=== PATIENT | male | born 1935 | race Caucasian/White ===

== ENCOUNTER 2016-10-18 15:39 | Emergency (ER) | payer OTHER ==
[2016-10-18] MEDS ORDERED: PERCOCET-10 PO ONE ×2 (16:21→19:40)
[2016-10-18] MEDS ORDERED: XYLOCAINE 1% INJ ONE (16:22)
[2016-10-18] MEDS ORDERED: BOOSTRIX VACCINE IM ONE (16:23)
[2016-10-18] MEDS ORDERED: XYLOCAINE MPF 1% ONE (16:28)
--- NOTE | 2016-10-18 16:32 | PROVIDER DOCUMENTATION ---
HPI-General Adult - General Chief Complaint: Laceration[s] Stated Complaint: HANDY INJURY Time Seen by Provider: 10/18/16 15:59 Source: patient Allergies/Adverse Reactions: Patient Allergies Allergy/AdvReac Type Severity Reaction Status Date / Time No Known Allergies Allergy Verified 02/26/14 14:52 Home Medications: Atorvastatin Calcium [Lipitor] 10 mg PO DAILY 02/26/14 Polyethylene Glycol 3350 [Miralax] 17 gm PO DAILY 02/26/14 - History of Present Illness -Gen Adult Nature of Presenting Problems: Pt. is 80 yom that presents with c/o injuries to 1st, 2nd and 3rd fingers on the left hand. Pt. reports he was using a table saw and got his fingers caught in the saw. Pt. reports his tetanus is not up to date. Pt. denies any other injury. Location of Pain/Injury: reports: hand(s) (left hand). denies: head, face, mouth, neck, chest, upper extremity, abdomen, back, pelvis, genitalia, lower extremity, feet, upper body, lower body, generalized Pain Radiation: reports: no radiation Quality of Pain: reports: aching. denies: burning, cramping, dull, fullness, indigestion, pressure, sharp, stabbing, tearing, throbbing, tightness Severity: reports: moderate. denies: mild, severe Onset/Duration: reports: abrupt, just prior to arrival Timing: reports: still present, constant. denies: improving, gone now, resolved prior to arrival, intermittent, changing over time, getting worse Context/Activities at Onset: reports: moderate activity, recent trauma history. denies: recent emotional stress, recent physical stress, possible bad food, cold exposure, out of country travel Modifying Factors: improves with: nothing Associated Symptoms: reports: other (Injury to fingers on left hand). denies: anxiety, arm pain, back/neck pain, chest pain, constipation, cough, diaphoresis , diarrhea, dizziness, EENT symptoms, fatigue, fever/chills, genitourinary problems, headaches, heartburn, joint pain, loss of appetite, malaise, muscle aches, sinus congestion/drainage, nausea, rash, seizure, shortness of breath, sensory/motor loss, pain with inspiration, swelling/mass in abdomen, syncope, vomiting, weakness, trouble walking Similar Symptoms Previously?: No Recently seen or treated by another doctor?: No Review of Systems - Adult - REVIEW OF SYSTEMS - ADULT Constitutional: reports: see HPI. denies: chills, fever, fatique Eyes: reports: see HPI. denies: discharge, blurred vision, double vision Ears, Nose, Mouth & Throat: reports: see HPI. denies: ear discharge, ear pain, nose pain, loose teeth, mouth/dental pain, throat pain, throat swelling Cardiovascular: reports: see HPI. denies: chest pain, irregular heart rate, orthopnea, syncope Respiratory: reports: see HPI. denies: chronic cough, cough, dyspnea on exertion, pleurisy, shortness of breath, wheezing Gastrointestinal: reports: see HPI. denies: abdominal pain, hematemesis, difficulty swallowing, nausea, vomiting Genitourinary: reports: see HPI. denies: dysuria, discharge, flank pain, hematuria, hesitency, urgency Musculoskeletal: reports: see HPI, bone pain (fingers on left hand). denies: back pain, joint pain, joint swelling, neck pain Integumentary: reports: see HPI. denies: hives, itching, rash, skin thickening Neurological: reports: see HPI. denies: ataxia, headache/migraines, numbness, seizure, tremors Psychiatric: reports: see HPI. denies: anxiety, depression, emotional problems , insomnia, panic attacks, suicidal thoughts Past History - Adult - PAST MEDICAL HISTORY-ADULT Review of Records: reports: Old Records Reviewed, Nursing Assessment Review, Medications Reviewed, Social history reviewed & non-contributory. Major Childhood Illnesses: reports: denies history Cardiovascular: reports: denies history Respiratory: reports: denies history Gastrointestinal: reports: denies history Obstetrical/Gynecological: reports: denies history Genitourinary: reports: denies history Musculoskeletal: reports: denies history Neurological: reports: denies history Endocrine/Immune: reports: denies history Other Conditions: reports: denies history - IMMUNIZATION STATUS Childhood Immunizations: See Nurse Assessment Flu Vaccine: See Nurse Assessment - FAMILY HISTORY Family History: reviewed, not pertinent Physical Exam-General - PHYSICAL EXAM-ADULT Initial Vital Signs Reviewed: Yes - CONSTITUTIONAL General Appearance: alert, moderate distress. negative: anxious, lethargic, slow to respond, obtunded, combative - EYES Eyes: PERRL/EOMI, pink conjunctivae. negative: conjuctival exudate, photophobia , subconjunctival hemorrhage - HEAD, EARS, NOSE, MOUTH & THROAT HENMT: normocephalic/atraumatic, moist mucous membranes. negative: angioedema, frontal tenderness, maxillary tenderness - NECK Neck: non-tender, full range of motion, supple, normal inspection. negative: lymphadenopathy, trachial deviation, thyromegaly - RESPIRATORY Respiratory: lungs clear, normal breath sounds. negative: crackles, rales, rhonchi, stridor, wheezing - CARDIOVASCULAR Cardiovascular: normal peripheral pulses, regular rate, rhythm, no edema, no JVD , no murmur. negative: extra beats, friction rub, irregularly irregular - CHEST (BREASTS) Chest/Breast: deferred - GASTROINTESTINAL (ABDOMEN) Abdominal Exam: normal bowel sounds, non tender, soft. negative: distended, guarding, rigid, rebound, tenderness, hernia, mass - GENITOURINARY Male Genitalia: deferred Rectal Exam: deferred Hemoccult Exam: deferred - LYMPHATIC Lymphatic: no adenopathy. negative: axilla node tender, cervical node tenderness - MUSCULOSKELETAL Back Exam: normal inspection, no CVA tenderness, no vertebral tenderness. negative: ecchymosis, swelling, vertebral tenderness Extremity: normal range of motion, non-tender, normal gait, normal inspection. negative: deformity, erythema, inflammation, swelling, tenderness Peripheral Pulses: radial (R): 2+, radial (L): 2+ - SKIN Integumentary: normal color, normal turgor, warm/dry. negative: cyanosis, diaphoresis, ecchymosis, erythema, jaundice, mottled, pallor, petechiae, purpura , rash, swelling, tenderness - NEUROLOGIC Neurologic: grossly normal, no motor/sensory deficits. negative: abnormal gait , facial droop, focal weakness, motor weakness, sensory deficit - PSYCHIATRIC Psych/Mental Status: normal mood/affect, normal thought content, normal thought process, oriented x 3. negative: anxious, paranoid, tearful Progress - PLAN OF CARE/RESULTS Progress/Plan/Lab Results: Discussed results and plan of care with patient. Patient agrees with plan and verbalizes understanding. Vital Signs Temp Pulse Resp BP Pulse Ox 10/18/16 15:46 97.8 F 80 18 162/93 100 No Known Allergies Allergy (Verified 02/26/14 14:52) Atorvastatin Calcium [Lipitor] 10 mg PO DAILY 02/26/14 Polyethylene Glycol 3350 [Miralax] 17 gm PO DAILY 02/26/14 Hydrocodone/Acetaminophen [Magnolia 10-325 Tablet] 1 each PO Q4H PRN PRN #15 tablet 05/04/16 Orders Category Date Time Status Frog Splint DIRECTED Care 10/18/16 19:40 Active Wound Care DIRECTED Care 10/18/16 19:40 Active lac [Laceration Set up] DIRECTED Care 10/18/16 16:21 Active HAND COMPLETE LEFT [RAD] Stat Exams 10/18/16 16:20 Completed CephALEXIN [Keflex] Med 10/18/16 19:41 Discontinued 500 mg PO NOW ONE Diph,Pertuss(Acell),Tet Vac/Pf [Boostrix Vaccine] Med 10/18/16 16:23 Discontinued 0.5 ml IM .ONCE ONE Lidocaine 1% Pf [Xylocaine-Mpf 1%] 10 ml Med 10/18/16 16:28 Discontinued .ROUTE As Directed Lidocaine 1% [Xylocaine 1%] Med 10/18/16 16:22 Discontinued 20 ml INJ NOW ONE Oxycodone/APAP 10 mg/325 mg [Percocet-10] Med 10/18/16 16:21 Discontinued 1 each PO NOW ONE Oxycodone/APAP 10 mg/325 mg [Percocet-10] Med 10/18/16 19:40 Discontinued 1 each PO NOW ONE Dr. Curtis at bedside for evaluation. - XRAY 1 XRAY: Left XRAY Study: Hand XRAY Interpretation: Distal phalanx cut off and floating in tissue on middle finger (Jose) Procedures - LACERATION/WOUND REPAIR/FB Left Finger Wound Location: Other: Left index finger Wound Length: 1.5 cm Wound's Depth, Shape: superficial, linear Wound Explored/Foreign Body: clean, no foreign body found Irrigated with Saline?: Yes Prepped with: Betadine Anesthetic: 1%, Lidocaine/Xylocaine Volume of Anesthetic (ml's): 4 Wound Repaired with: Sutures Suture Size/Type: 4.0, Nylon Number of Sutures: 5 Layer Closure?: No Sterile Dressing Applied?: Yes Splint Applied?: No Sling Applied?: No Post Procedure Neurovascular Exam: Intact Finger Wound Location: Other: Left middle finger Wound Length: 2 cm Wound's Depth, Shape: superficial, nail-avulsed, contused tissue Wound Explored/Foreign Body: contaminated moderately, no foreign body found Irrigated with Saline?: Yes Prepped with: Betadine Anesthetic: 1%, Lidocaine/Xylocaine Volume of Anesthetic (ml's): 10 (used digital block for this repair) Wound Debrided: minimal Wound Repaired with: Sutures Suture Size/Type: 4.0, Nylon Number of Sutures: 8 Layer Closure?: No Sterile Dressing Applied?: Yes Splint Applied?: Yes Sling Applied?: No Post Procedure Neurovascular Exam: Intact Procedure Comment: This wound is ground up with a saw and was very complicated to repair. Hand Wound Location: Other: Left hand 4th digit Wound Length: 2 cm Wound's Depth, Shape: superficial, irregular Wound Explored/Foreign Body: clean, no foreign body found Irrigated with Saline?: Yes Prepped with: Betadine Anesthetic: 1%, Lidocaine/Xylocaine Volume of Anesthetic (ml's): 5 Wound Repaired with: Sutures Suture Size/Type: 4.0, Nylon Number of Sutures: 6 Layer Closure?: No Sterile Dressing Applied?: Yes Splint Applied?: No Sling Applied?: No Post Procedure Neurovascular Exam: Intact - SPLINTING Left 3rd Digit Pre-Procedure Neurovascular Exam: Intact Pre-Fabricated Splint: Aluminum Foam Applied By: ED Nurse Assisted By: Mid-level Post Procedure Neurovascular Exam: Intact Procedure Comment: Brandee allison - ADDITIONAL PROCEDURES Additional Procedure: Digital Nerve Block (Digital block of middle finger on the left hand with lidocaine 1% using 10 ml.) Departure - Departure Time of Disposition Order: 19:43 DIAGNOSIS: Laceration, Avulsion fracture of bone Disposition: HOME 01 Certified Medical Emergency: Emergent Condition: Stable Additional Instructions: Follow up with primary care physician Follow up with orthopedic physician Take medications as directed Return to ED for any concerns or worsening of symptoms ED Follow Up Instructions: You have been treated by a care provider in the Emergency Department. These instructions are being provided to you so you can have an understanding of how to care for yourself upon discharge. Upon discharge from the Emergency Department, you are responsible for making arrangements for follow-up care by a physician of your choice. Take all prescribed medications as directed. Return to the Emergency Department immediately for any new or worsening symptoms. You may call the Physician Referral phone number at [phone] to obtain a list of Physicians who are taking new patients. Prescriptions: Cephalexin [Keflex] 500 mg PO BID #14 capsule Oxycodone/APAP 10 mg/325 mg [Percocet-10] 1 each PO Q4H PRN PRN #12 tablet PRN Reason: Pain Referrals: Melchor Myers [Primary Care Provider] - Noel Grimes MD [STAFF PHYSICIAN] - Attestation - Physician/ Mid-level Attestation Patient care was provided by Mid-level provider (DONOR TECHNICIAN/PA):: Yes Mid-level provider:: Christopher Garcia Mid-level documentation review:: The Mid-level provider documentation, treatment plan and medical decision making was reviewed by the physician who agrees with all treatment and medical decision making by the MLP. The physician spent face to face time with patient:: Yes
--- NOTE | 2016-10-18 16:48 | Diag Imaging Result Document ---
PROCEDURE NAME: HAND COMPLETE LEFT - 10/18/2016 LEFT HAND, THREE VIEWS: INDICATION: Injury. FINDINGS: There is a comminuted fracture of the tuft of the long finger with an associated soft tissue defect. There is no dislocation. Mild diffuse joint space narrowing is noted about the PIP and DIP joints. IMPRESSION: Comminuted fracture involving the tuft of the long finger.
[2016-10-18] MEDS ORDERED: KEFLEX PO ONE (19:41)
[2016-10-18] MEDS ORDERED: NS 1,000 ML ONE (20:19)
[2016-10-18] MEDS ORDERED: NS 1,000 ML IV ONE (20:29)
[2016-10-18 21:35] VITALS: BP 160/77
== END 2016-10-18 21:39 | disposition home or self-care (01) ==
LOC: P.ED 15:39
DX: S62.633B Displaced fracture of distal phalanx of left middle finger, initial encounter for open fracture (principal); S61.211A Laceration without foreign body of left index finger without damage to nail, initial encounter; S61.215A Laceration without foreign body of left ring finger without damage to nail, initial encounter; M79.645 Pain in left finger(s); I95.9 Hypotension, unspecified; R61 Generalized hyperhidrosis; R23.1 Pallor; Z79.899 Other long term (current) drug therapy; Z23 Encounter for immunization; W27.0XXA Contact with workbench tool, initial encounter
CPT/HCPCS: 90471; 90715; 96360; J7030

== ENCOUNTER 2018-11-20 11:28 | Inpatient (IN) ==
--- NOTE | 2018-11-20 12:35 | Diag Imaging Result Doc PS360 ---
EXAM: CHEST-2 VIEWS HISTORY: cough/pneumonia TECHNIQUE: Chest two views COMPARISON: 02/03/2018 FINDINGS: The lungs are well expanded. The heart is not enlarged. The vessels are not distended. There are mild increased markings in the right lung base. Tiny right effusion versus pleural thickening. There is a granuloma in the left base. IMPRESSION: Atelectasis versus tiny right basilar infiltrate Electronically signed by Bin Moon 11/20/2018 12:33 PM
[2018-11-20 12:38] LABS: BASO# 0.03 X1000 (0.0-0.2); BASO% 0.7 % (0.0-0.8); EOS# 0.11 X1000 (0.0-0.7); EOS% 2.6 % (0.0-10.0); HEMATOCRIT 35.1 % (42.0-52.0); HEMOGLOBIN 11.5 g/dL (14.0-18.0); IMM GRAN# 0.06 X1000 (0.0-0.04); IMM GRAN% 1.4 % (0.0-0.5); LYMPH# 0.47 X1000 (1.2-3.4); LYMPH% 10.9 % (20.5-51.1); MCH 32.2 PG (27-31); MCHC 32.8 g/dL (33-37); MCV 98.3 FL (81-99); MONO% 18.6 % (1.7-9.3); MPV 9.6 FL (7.4-10.4); NEUT# 2.83 X1000 (1.4-6.5); NEUT% 65.8 % (42.2-75.2); PLT 151 X1000 (130-400); RBC 3.57 XMIL (4.7-6.1)
[2018-11-20 12:54] LABS: AGAP 13; ALB/GLOB RATIO 1.6; ALBUMIN 4.1 g/dL (3.5-5.0); ALKALINE PHOSPHATASE 86 U/L (32-122); BUN 13 mg/dL (8-22); CALCIUM 9.2 mg/dL (8.8-10.2); CHLORIDE 98 mmol/L (98-107); COSMO 276; CREATININE 1.1 mg/dL (0.7-1.2); ESTIMATED GFR > 60; GLUCOSE 172 mg/dL (70-104); GOT 18 U/L (10-34); GPT 13 U/L (10-44); POTASSIUM 4.2 mmol/L (3.5-5.1); SODIUM 136 mmol/L (136-145); TCO2 25 mmol/L (25-35); TOTAL BILIRUBIN 0.84 mg/dL (0.20-1.00); TOTAL PROTEIN 6.7 g/dL (6.3-8.3)
[2018-11-20] MEDS ORDERED: VANCOMYCIN 1 GM/NS 1 GM/250 ML IVPB IV ONE (15:34)
[2018-11-20] MEDS ORDERED: DUONEB (A & A) INH ONE ×2 (15:34→17:17)
[2018-11-20] MEDS ORDERED: ZOSYN 3.375 GM in NS 50 ML IV ONE (15:34)
[2018-11-20] MEDS ORDERED: NS 1,000 ML IV ONE (15:34)
[2018-11-20 17:14] LABS: ALLEN TEST YES; BE 2.8 mmoll (-3.0-3.0); BLOOD TYPE ARTERIAL; METHB 0.8 % (0.0-1.5); O2(CT) 14.3 mL/dL (15.0-23.0); O2HB 91.5 % (95.0-99.0); PCO2(98.6) 32 mmHg (35-45); PO2(98.6) 62 mmHg (60-100); SAMPLE BLOOD; SAO2 93.8 % (95.0-100.0); THB 11.1 g/dL (11.5-17.4); pH(98.6) 7.51 (7.35-7.45)
[2018-11-20 17:15] LABS: MODALITY ROOM AIR
[2018-11-20] MEDS ORDERED: ROBITUSSIN-DM PO ONE (17:17)
--- NOTE | 2018-11-20 17:36 | Diag Imaging Result Doc PS360 ---
EXAM: CT ANGIOGRM PULMONARY ARTERIES INDICATION: left sided posterior chest pain, SOB TECHNIQUE: This exam was performed using automated exposure control, adjustment of mA or kV according to patient size, and/or use of iterative reconstruction technique. Thin section axial images and 3-D MIPS were obtained. COMPARISON: CT thorax without contrast dated 02/11/2018 FINDINGS: There is a solitary small filling defect seen in a second or third order branch of the right pulmonary artery leading to the right lower lobe consistent with a small pulmonary embolus. It is seen eccentrically located at the wall of the vessel. This can be seen with chronic or subacute pulmonary emboli. No other filling defects are identified in the pulmonary arteries on the right or the left. There is mild aortic atherosclerotic calcification. There is no evidence of aortic aneurysm or dissection. Small shotty mediastinal lymph nodes are noted. The anterior mediastinal mass is seen on the previous study have largely resolved. There is consolidation as well as atelectasis in the right lower lobe near the base. Essentially all of the pulmonary nodules seen on the previous study have decreased in size or resolved. There is no pleural fluid collection and no pneumothorax. Limited views of the upper abdomen are essentially unremarkable. IMPRESSION: 1.Small filling defect in a branch of the right pulmonary artery leading to the right lower lobe indicating an embolus, but it may be subacute or chronic. The clot burden is low. 2.Right basilar consolidation and atelectasis. 3.Interval significant improvement in the multiple lung nodules and mediastinal lymphadenopathy seen on the previous study. Electronically signed by Saulo Shirley 11/20/2018 5:33 PM
[2018-11-20] MEDS ORDERED: LOVENOX 1 MG/KG SUBQ ONE (18:13)
--- NOTE | 2018-11-20 18:28 | PROVIDER DOCUMENTATION ---
This chart was entered by Shereen Bragg Scribe, acting as scribe for Nicoklas Stanton MD. HPI-General Adult - General Chief Complaint: General Adult Stated Complaint: CP,BACK PAIN,COUGHING,FEVER, Time Seen by Provider: 11/20/18 15:25 Source: patient Allergies/Adverse Reactions: Patient Allergies Allergy/AdvReac Type Severity Reaction Status Date / Time No Known Allergies Allergy Verified 02/03/18 15:30 Home Medications: Home Medication List Medication Instructions Recorded Confirmed Last Taken Type Atorvastatin Calcium [Lipitor] 10 mg PO DAILY 02/26/14 11/20/18 03/02/14 History Amlodipine [Norvasc] 5 mg PO DAILY 11/20/18 11/20/18 Unknown History Cyanocobalamin (Vitamin B-12) 1,000 mcg PO DAILY 11/20/18 11/20/18 Unknown History [Vitamin B-12] - History of Present Illness -Gen Adult Nature of Presenting Problems: Patient is a 82 year old male who presents to the ED with multiple complaints. Patient states shortness of breath, low back pain, cough, fever, and weakness. Patient's daughter states symptoms have been present for 6 months. Patient's daughter states patient has been on multiple rounds of antibiotics with no relief. Patient's daughter states patient has a history of non hodgkin's lymphoma. Patient's daughter states last PET scan was in September 2018. Location of Pain/Injury: reports: back Pain Radiation: reports: no radiation Quality of Pain: reports: aching Severity: reports: mild Onset/Duration: reports: other (6 months) Timing: reports: still present Context/Activities at Onset: reports: light activity Modifying Factors: improves with: nothing Associated Symptoms: reports: cough, fever/chills (fever), shortness of breath, weakness Similar Symptoms Previously?: Yes Recently seen or treated by another doctor?: Yes Review of Systems - Adult - REVIEW OF SYSTEMS - ADULT Constitutional: reports: fever. denies: chills, fatique Eyes: reports: no symptoms reported Ears, Nose, Mouth & Throat: reports: no symptoms reported Cardiovascular: reports: no symptoms reported Respiratory: reports: cough, shortness of breath. denies: wheezing Gastrointestinal: reports: no symptoms reported Genitourinary: reports: no symptoms reported Musculoskeletal: reports: back pain, muscle weakness. denies: neck pain Integumentary: reports: no symptoms reported Neurological: reports: no symptoms reported Psychiatric: reports: no symptoms reported Endocrine: reports: no symptoms reported Hematologic/Lymphatic: reports: no symptoms reported Allergic/Immunologic: reports: no symptoms reported All Other Systems: Reviewed and Negative Past History - Adult - PAST MEDICAL HISTORY-ADULT Review of Records: reports: Nursing Assessment Review, Medications Reviewed, Social history reviewed & non-contributory. Major Childhood Illnesses: reports: denies history Cardiovascular: reports: HTN, hyperlipidemia Respiratory: reports: denies history Gastrointestinal: reports: denies history Obstetrical/Gynecological: reports: denies history Genitourinary: reports: kidney stones Musculoskeletal: reports: denies history Neurological: reports: denies history Psychiatric: reports: denies history Endocrine/Immune: reports: denies history Other Conditions: reports: denies history - PRIOR SURGERIES/PROCEDURES Surgical/Procedure History: reports: reviewed, not pertinent - IMMUNIZATION STATUS Childhood Immunizations: See Nurse Assessment Flu Vaccine: See Nurse Assessment - FAMILY HISTORY Family History: reviewed, not pertinent - SOCIAL HISTORY Smoking: cigarettes (former) Substance Use: denies Physical Exam-General - PHYSICAL EXAM-ADULT Initial Vital Signs Reviewed: Yes - CONSTITUTIONAL General Appearance: appears well, alert, no apparent distress - EYES Eyes: PERRL/EOMI - HEAD, EARS, NOSE, MOUTH & THROAT HENMT: moist mucous membranes, normal ENT inspection - NECK Neck: non-tender, normal inspection - RESPIRATORY Respiratory: chest non-tender, rhonchi (right base) - CARDIOVASCULAR Cardiovascular: normal peripheral pulses, regular rate, rhythm - GASTROINTESTINAL (ABDOMEN) Abdominal Exam: normal bowel sounds, non tender, soft - MUSCULOSKELETAL Extremity: non-tender, normal inspection - SKIN Integumentary: normal color, normal turgor, warm/dry - NEUROLOGIC Neurologic: grossly normal, no motor/sensory deficits - PSYCHIATRIC Psych/Mental Status: normal mood/affect, oriented x 3 Progress - PLAN OF CARE/RESULTS Progress/Plan/Lab Results: Vital Signs - 8 hr 11/20/18 12:02 Temperature 97.7 F Pulse Rate 84 Respiratory Rate 20 Blood Pressure 131/87 O2 Sat by Pulse Oximetry 100 Laboratory Results - last 24 hr 11/20/18 11/20/18 12:15 12:15 WBC 4.30 L RBC 3.57 L Hgb 11.5 L Hct 35.1 L MCV 98.3 MCH 32.2 H MCHC 32.8 L RDW Std Deviation 15.0 H Plt Count 151 MPV 9.6 Immature Gran % (Auto) 1.4 H Neut % (Auto) 65.8 Lymph % (Auto) 10.9 L Rock % (Auto) 18.6 H Eos % (Auto) 2.6 Baso % (Auto) 0.7 Immature Gran # (Auto) 0.06 H Neut # (Auto) 2.83 Lymph # (Auto) 0.47 L Rock # (Auto) 0.80 H Eos # (Auto) 0.11 Baso # (Auto) 0.03 Sodium 136 Potassium 4.2 Chloride 98 Carbon Dioxide 25 Anion Gap 13 BUN 13 Creatinine 1.1 Estimated GFR/1.73 m2 > 60 BUN/Creatinine Ratio 12 Glucose 172 H Calculated Osmolality 276 Calcium 9.2 Total Bilirubin 0.84 AST 18 ALT 13 Alkaline Phosphatase 86 Total Protein 6.7 Albumin 4.1 Globulin 2.6 Albumin/Globulin Ratio 1.6 Orders Category Date Time Status CHEST-2 VIEWS [RAD] Stat Exams 11/20/18 12:05 Completed BLOOD CULTURE [BLDCUL] Stat Lab 11/20/18 12:07 Uncollected CBC WITH DIFF [HEME] Stat Lab 11/20/18 12:15 Completed COMPREHENSIVE METABOLIC PANEL [CHEM] Stat Lab 11/20/18 12:15 Completed Result Diagrams: 11/20/18 12:15 11/20/18 12:15 - REASSESSMENT Reassessment #1 Time Reassessed: 18:16 Status: improving (Better after neb treatments, robitussin, IV Vanc/Zosyn/ for CAP pneumonia that failed outpatient treatment) - XRAY 1 XRAY Study: Chest Impression: See EMR Report ( EXAM: CHEST-2 VIEWS HISTORY: cough/pneumonia TECHNIQUE: Chest two views COMPARISON: 02/03/2018 FINDINGS: The lungs are well expanded. The heart is not enlarged. The vessels are not distended. There are mild increased markings in the right lung base. Tiny right effusion versus pleural thickening. There is a granuloma in the left base. IMPRESSION: Atelectasis versus tiny right basilar infiltrate Electronically signed by Bin Moon 11/20/2018 12:33 PM 11/20/18 1233 Interpreting Physician: Bin Moon MD Dictated Date/Time: 11/20/18 1232 cc: Nickolas Stanton MD; Conor Jimenez MD) - CT/MRI 2 CT Study: Angiogram Impression: Abnormal, See EMR Report (EXAM: CT ANGIOGRM PULMONARY ARTERIES INDICATION: left sided posterior chest pain, SOB TECHNIQUE: This exam was performed using automated exposure control, adjustment of mA or kV according to patient size, and/or use of iterative reconstruction technique. Thin section axial images and 3-D MIPS were obtained. COMPARISON: CT thorax without contrast dated 02/11/2018 FINDINGS: There is a solitary small filling defect seen in a second or third order branch of the right pulmonary artery leading to the right lower lobe consistent with a small pulmonary embolus. It is seen eccentrically located at the wall of the vessel. This can be seen with chronic or subacute pulmonary emboli. No other filling defects are identified in the pulmonary arteries on the right or the left. There is mild aortic atherosclerotic calcification. There is no evidence of aortic aneurysm or dissection. Small shotty mediastinal lymph nodes are noted. The anterior mediastinal mass is seen on the previous study have largely resolved. There is consolidation as well as atelectasis in the right lower lobe near the base. Essentially all of the pulmonary nodules seen on the previous study have decreased in size or resolved. There is no pleural fluid collection and no pneumothorax. Limited views of the upper abdomen are essentially unremarkable. IMPRESSION: 1.Small filling defect in a branch of the right pulmonary artery leading to the right lower lobe indicating an embolus, but it may be subacute or chronic. The clot burden is low. 2.Right basilar consolidation and atelectasis. 3.Interval significant improvement in the multiple lung nodules and mediastinal lymphadenopathy seen on the previous study. Electronically signed by Saulo Shirley 11/20/2018 5:33 PM 11/20/18 1733 Interpreting Physician : Saulo Shirley MD Dictated Date/Time: 11/20/18 1722 cc: Nickolas Stanton MD; Conor Jimenez MD) - CONSULTS/PCP/HOSPITALIST Notification #1 *Consult/PCP/Hospitalist*: Fish paged at [id number] Time Discussed: 18:28 Consult Disposition: Will see in ED Departure - Departure Date of Disposition Decision: 11/20/18 Time of Disposition Decision: 18:19 DIAGNOSIS: Pulmonary embolism and infarction Pneumonia involving right lung Qualifiers: Pneumonia type: due to unspecified organism Lung location: middle lobe of lung Qualified Code(s): J18.1 - Lobar pneumonia, unspecified organism Disposition: ADMITTED INPATIENT 09 Certified Medical Emergency: Emergent Condition: Fair Referrals and Follow-Ups: Conor Jimenez MD [Primary Care Provider] - - Critical Care Note This patient required my direct & personal management of CC.: Yes Total Time (mins): 40 Critical Care Statement: This patient required my direct personal management to treat or rule out processes, the absence of which, could potentiallly result in sudden, clinically significant life or limb threatening deterioration. Attestation - Physician/ [place] Attestation Patient care was provided by Advanced Practice Provider:: No The physician spent face to face time with patient:: Yes Advanced Practice Provider documentation review:: Supervising physician onsite and consulted in the evaluation and care of this patient. The physician did have a face to face encounter with the patient. This chart was documented by the indicated scribe, (Shereen Bragg Scribe) and accurately reflects the services I performed and decisions made by me, Nickolas Stanton MD, as attested by the provider's signature.
[2018-11-20] MEDS ORDERED: LOVENOX SUBQ ONE (18:30)
[2018-11-20] MEDS ORDERED: TYLENOL PO PRN (20:01)
[2018-11-20] MEDS: DUONEB (A & A) INH SCH (21:03)
[2018-11-20] MEDS: ZOSYN 3.375 GM in NS 50 ML IV SCH (22:00)
[2018-11-20 22:36] LABS: HEMOGLOBIN A1C 6.6 % (4.8-6.0)
--- NOTE | 2018-11-20 22:53 | HISTORY AND PHYSICAL ---
ONCOLOGIST: Dr. Mackey. PRIMARY CARE PROVIDER: Conor Jimenez. CHIEF COMPLAINT: Shortness of breath, back pain, cough, fever. HISTORY OF PRESENT ILLNESS: This is an 82-year-old male with a history of non-Hodgkin lymphoma. He has been treated outpatient by Dr. Mackey. I believe his last PET scan was September of 2018. I think at that time he was shown to have pneumonia and he has had multiple rounds of antibiotics with no relief. He has had symptoms similar to this for around 4-6 months. Light activity causes it to be worse. Nothing makes it better. He has cough, fever, chills, shortness of breath and weakness. The cough is causing him to have cough-associated chest pain that also radiates into his back as well as dyspnea on exertion and generalized malaise and fatigue. He has other comorbidities that include hypertension, hyperlipidemia and a history of kidney stones. A CT angio- was obtained in the emergency room that showed a small filling defect in a branch of the right pulmonary artery leading to the right lower lobe indicating an embolus. It could be subacute or chronic. It did note a low clot burden. Also showed right basilar consolidation and atelectasis. There was interval significant improvement in the multiple lung nodules and mediastinal lymphadenopathy seen on previous studies. Patient will be admitted to the medical floor for treatment of pulmonary embolism and community-acquired pneumonia with failed outpatient treatment. PAST MEDICAL HISTORY: See HPI. PREVIOUS SURGICAL HISTORY: 1. Kidney stone removal. 2. I believe hernia repair with mesh. SOCIAL HISTORY: No tobacco, alcohol or illicit drugs. I believe he was a former smoker. He is . 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 FAMILY HISTORY: Father from an aneurysm. He was in his 80s. Mother lived into her 80s. He was unaware of any chronic illnesses. ALLERGIES: No known drug allergies. HOME MEDICATIONS: 1. Atorvastatin 10 mg p.o. daily. 2. Amlodipine 5 mg p.o. daily. 3. Vitamin B12 1000 mcg p.o. daily. REVIEW OF SYSTEMS: Fourteen point review of systems conducted with the patient. Pertinent positives listed above in the HPI. All other systems reviewed and found to be negative. PHYSICAL EXAMINATION: VITAL SIGNS: Temperature 97.7, pulse 70, respirations 22, blood pressure 116/54, oxygen saturation 92% on room air. GENERAL: Pleasant 82-year-old male lying in the ER stretcher, answers all questions appropriately, is alert and oriented times 3. He is in no acute distress. HEENT: Head is atraumatic, normocephalic. Pupils equal, round, reactive to light. Extraocular eye movement intact. Sclerae are anicteric. Conjunctiva is mildly pale. Oral mucosa is moist. NECK: Supple. No JVD. No thyromegaly. Trachea is midline. No cervical lymphadenopathy. CARDIAC: S1, S2 appreciated. No murmurs, gallops, rubs. LUNGS: Decreased right greater than left. Crepitations noted in right base. No wheezing. Symmetric rise and fall with respirations. ABDOMEN: Protuberant, soft, nondistended, nontender. Bowel sounds present all 4 quadrants, normoactive. No pulsatile mass. No organomegaly. EXTREMITIES: No clubbing, cyanosis, or edema. Two-plus pedal pulses bilaterally. GENITOURINARY: No bladder distention. Patient voids. Otherwise deferred. NEUROLOGICAL: Alert and oriented times 3. No focal or motor deficits. Otherwise nonfocal examination. DIAGNOSTIC DATA: Pulmonary arteriogram showed right lower lobe embolus subacute or chronic with a low clot burden, right basilar consolidation and atelectasis. There was interval significant improvement in the multiple lung nodules and mediastinal lymphadenopathy seen on previous exams. LABORATORY DATA: WBC 4.30. Hemoglobin 11.5. Hematocrit 35.1. Platelet count 151. ABG: pH 7.51, CO2 of 32, pO2 of 62, bicarbonate 27 on room air. Chemistry panel within normal limits other than a glucose of 172. ASSESSMENT AND PLAN: 1. Pulmonary embolism. It is unclear at this time if this is acute or subacute. We will treat with 1 mg/kg of Lovenox q.12 hours. Patient will need to be transitioned to oral anticoagulants. Recommend staying on this for around 6 months. This will likely be managed by Dr. Mackey. 2. Right lower lobe pneumonia with failed outpatient treatment. He was started on Zosyn and vancomycin in the emergency room. We will transition to Zosyn and Zyvox to decrease nephrotoxicity. DuoNebs. Tessalon Perles as needed for cough. Blood cultures and sputum cultures. 3. Non-Hodgkin lymphoma, aware. Consult Dr. Mackey. Patient is known to him. 4. Hypertension. Continue home medications. 5. Hyperlipidemia. Continue statin. 6. Hyperglycemia. Check hemoglobin A1c. Patient does not carry a diagnosis of diabetes mellitus. We will continue to monitor. 7. Metabolic alkalosis. Continue to monitor. 8. Anemia. This is of chronic disease most likely. We will order iron studies. Further recommendations per patient clinical course. Dictated by JAKY Moran for Lalit Mills MD cc: JAKY Moran MD Naveen T. Lobo, MD Jeb S. Hornsby, MD
[2018-11-20] MEDS ORDERED: ZYVOX PO ONE (23:30)
--- NOTE | 2018-11-21 02:58 | HISTORY AND PHYSICAL ---
ADDENDUM: The patient has been having off-and-on issues for several weeks for shortness of breath and cough, fevers. He has had a couple courses of antibiotics, but he says off and on, this has been going on for 6 months. He has seen several doctors, but he has never had a clear diagnosis. He is unclear what antibiotics he has taken. He has never been admitted to the hospital here, at least since 2010, and 2018 was his last scan, which showed a mediastinal lymphadenopathy consistent with his non-Hodgkin's lymphoma. He states he has had about [address] scan today showed a right pulmonary artery PE, small, possibly subacute or chronic, with low clot burden, and a right basilar consolidation. He will be admitted. His pulmonary exam has got rales, some rhonchi, and no major wheezing. He will be admitted for pneumonia and then possible subacute PE. We will initiate anticoagulation with Lovenox, continue pulmonary toilet, workup anemia, and follow. We will consult Dr. Mackey, his primary oncologist, and follow closely. This is a [id number] encounter note with Kofi Henson. cc: Lalit Mills MD
[2018-11-21] MEDS: DUONEB (A & A) INH SCH ×4 (03:47→21:56)
[2018-11-21] MEDS: ZOSYN 3.375 GM in NS 50 ML IV SCH ×4 (04:01→21:06)
[2018-11-21] MEDS ORDERED: TESSALON PO PRN (05:25)
[2018-11-21 06:32] LABS: BASO# 0.02 X1000 (0.0-0.2); BASO% 0.6 % (0.0-0.8); EOS# 0.04 X1000 (0.0-0.7); EOS% 1.2 % (0.0-10.0); HEMATOCRIT 30.6 % (42.0-52.0); HEMOGLOBIN 9.9 g/dL (14.0-18.0); IMM GRAN# 0.02 X1000 (0.0-0.04); IMM GRAN% 0.6 % (0.0-0.5); LYMPH# 0.51 X1000 (1.2-3.4); LYMPH% 15.9 % (20.5-51.1); MCH 31.7 PG (27-31); MCHC 32.4 g/dL (33-37); MCV 98.1 FL (81-99); MONO# 0.64 X1000 (0.11-0.59); MONO% 19.9 % (1.7-9.3); MPV 9.4 FL (7.4-10.4); NEUT# 1.98 X1000 (1.4-6.5); NEUT% 61.8 % (42.2-75.2); PLT 124 X1000 (130-400); RBC 3.12 XMIL (4.7-6.1); WBC 3.21 X1000 (4.8-10.8)
[2018-11-21 07:01] LABS: AGAP 12; BUN 11 mg/dL (8-22); CALCIUM 8.3 mg/dL (8.8-10.2); CHLORIDE 102 mmol/L (98-107); COSMO 278; CREATININE 1.1 mg/dL (0.7-1.2); ESTIMATED GFR > 60; GLUCOSE 160 mg/dL (70-104); POTASSIUM 3.9 mmol/L (3.5-5.1); SODIUM 138 mmol/L (136-145); TCO2 24 mmol/L (25-35)
[2018-11-21 07:02] LABS: IRON SATURATION 15 %; TIBC 167 ug/dL; TOTAL IRON 25 ug/dL (53-167); UNBOUND IRON 142 ug/dL (112-346)
[2018-11-21] MEDS: PROTONIX IV SCH (07:14)
[2018-11-21 07:25] LABS: FERRITIN 957 ng/mL (30-400)
[2018-11-21] MEDS: VITAMIN B-12 PO SCH (10:03)
[2018-11-21] MEDS: LOVENOX SUBQ SCH ×2 (10:03→21:06)
[2018-11-21] MEDS: LIPITOR PO SCH (10:03)
[2018-11-21] MEDS: ZYVOX PO SCH ×2 (10:04→21:06)
[2018-11-21] MEDS: NORVASC PO SCH (10:17)
--- NOTE | 2018-11-21 11:21 | PROGRESS NOTE ---
DATE: 11/21/2018 INTERVAL HISTORY: No overnight events. Mr. Sow was admitted for right lower lobe pulmonary embolism, right lower lobe pneumonia. He was started on enoxaparin 80 mg subcutaneously q.12 h., intravenous linezolid, and intravenous Zosyn. His ultrasound lower extremities are pending. SUBJECTIVE: He feels that his cough and shortness of breath are better. He has been able to make a little bit of sputum; however, he has not been able to make enough to send it to the lab. We discussed about his chest CT finding. The patient's and daughter are at bedside. Plan of care was discussed with them. All of their questions have been answered satisfactorily. OBJECTIVE: Vital Signs: Currently temperature 99 degrees, pulse 71, blood pressure 117/68, saturating 96% on 3 L nasal cannula. General: Does not appear in any acute distress. HEENT: He has nasal congestion. Oral cavity moist. No pharyngeal congestion. Neck: No cervical lymphadenopathy. Lungs: Air entry bilaterally equal. No wheeze or rhonchi. Bilateral inspiratory crackles at bases on back. Cardiovascular: S1, S2 normal. No murmur, rub, gallop. Abdomen: Soft, nontender. Lower Extremities: He has edema affecting left lower extremity. DIAGNOSTIC STUDIES: Labs suggestive off pancytopenia. Normal kidney function. Normal electrolytes. Anemia panel suggestive of anemia of chronic inflammation. ASSESSMENT AND PLAN: 1. Acute right lower lobe pulmonary embolism. Based on CT, it could be subacute or chronic as well. Continue Lovenox. We will appreciate Hematology's recommendation about eventually transitioning him to p.o. considering cost effectiveness. The patient does not have medicine insurance, and the family would like to pursue a cost-effective option. 2. Suspected right lower lobe pneumonia with failed outpatient treatment. According to history, patient had previously received ceftriaxone, doxycycline, among other antibiotics as an outpatient. Continue intravenous Zosyn and Zyvox. Follow up sputum culture results. Also follow up procalcitonin level to guide therapy for pneumonia. Follow up blood culture results. 3. History of non-Hodgkin's lymphoma. Aware. Last chemotherapy was likely September 2018. 4. Other. History of essential hypertension, hyperlipidemia. Continue home amlodipine and atorvastatin. 5. Hyperglycemia with hemoglobin A1c suggestive of mild elevation in diabetic range. I would advise the patient to have lifestyle modification. 6. Anemia of chronic disease, currently in acceptable range. 7. Pancytopenia. Could be in the setting of pneumonia. Follow up daily CBC. Plan of care was discussed with the patient and his family at bedside. All of their questions have been answered satisfactorily. cc: Claudio Soto MD
--- NOTE | 2018-11-21 11:59 | HEMO/ONC CONSULTATION ---
DATE: 11/21/2018 CHIEF COMPLAINT: Results of stress management of non-Hodgkin's lymphoma. HISTORY OF PRESENT ILLNESS: Mr. Sow is an 82-year-old male that presented to emergency department complaining of increased shortness of breath, chest pain that continued to get worse. The patient complained of cough, fever, chills, increased amounts of malaise and fatigue. While in the emergency department, the patient had a CT angiogram that showed pulmonary embolism in the right pulmonary artery, and was admitted at that time for further evaluation and management. Mr. Sow is well known to us in our clinic where he is followed for his history of non- Hodgkin's lymphoma. The patient initially received R-CVP in February 2014, and due to relapse he was started on rituximab on 03/18/2018. The patient also had Xgeva for hypercalcemia of malignancy. The patient had a PET scan on 09/17/2018 that showed no FDG avid neoplasm at that time. He did have a right lower lobe consolidation that looked to be pneumonia at that time. His disease is very well under control, which is monitored every 3 months since then. PAST MEDICAL HISTORY: Non-Hodgkin's lymphoma, hypertension, hyperlipidemia, kidney stones. PAST SURGICAL HISTORY: Kidney stone removal, hernia repair. SOCIAL HISTORY: Denies any tobacco or illicit drug use. FAMILY HISTORY: Aneurysm. ALLERGIES: No known drug allergies. HOME MEDICATIONS: Atorvastatin, amlodipine, vitamin B 12. REVIEW OF SYSTEMS: Negative, unless as per HPI. PHYSICAL EXAM: Vital Signs: Temperature 99.0 degrees, heart rate 71, respiratory rate 23, blood pressure 117/68, satting 96% on nasal cannula. General: Patient is awake, lying in bed, no acute distress noted. HEENT: Anicteric. Pupils PERRLA. Mucous membranes moist. Neck: Supple. Trachea midline. No JVD. Lymph node survey: No palpable lymphadenopathy. Lungs: Bilateral breath sounds diminished bilaterally. Cardiovascular: S1, S2. Regular rate and rhythm. Abdomen: Soft, nontender. Bowel sounds present in all 4 quadrants. No hepatosplenomegaly noted. Skin: Warm, dry and intact. No petechiae, clubbing or cyanosis. Neurologic: Alert and oriented x3. No focal deficits noted. LABORATORY DATA: White cell count 3.21, hemoglobin 9.9, hematocrit 30.6, platelets are 124. Potassium of 3.9, BUN 11, creatinine 1.1. Radiology report results: Chest x- ray: Atelectasis versus tiny right basilar infiltrate. Pulmonary arteriogram showed a small filling distending branch of the right pulmonary artery leading to the right lower lobe indicating an embolism, but it may be acute, subacute or chronic. Clot burden is low. Right basilar consolidation atelectasis and then significant interval improvement in the multiple lung nodules and mediastinal lymphadenopathy. ASSESSMENT AND PLAN: 1. Non-Hodgkin's lymphoma: The patient's disease has been very well under control. Last PET scan showed no FDG avid neoplasm seen at that time. Continue to just monitor at this time. 2. Pulmonary embolism: Continue Lovenox as ordered. We will continue to monitor closely. 3. Right lower lobe pneumonia: Continue antibiotics as ordered by primary medical team. Blood cultures and sputum cultures pending. 4. Hypertension. 5. Hyperlipidemia. 6. Hyperglycemia. Plan of care discussed with Dr. Mackey. Dictated by JAKY Wei for Jacinto Mackey MD cc: JAKY Wei MD [facility]
[2018-11-22] MEDS: DUONEB (A & A) INH SCH ×4 (03:21→21:20)
[2018-11-22] MEDS: ZOSYN 3.375 GM in NS 50 ML IV SCH ×4 (03:53→21:56)
[2018-11-22] MEDS: PROTONIX IV SCH (04:27)
[2018-11-22 07:38] LABS: BASO# 0.03 X1000 (0.0-0.2); BASO% 1.2 % (0.0-0.8); HEMOGLOBIN 9.8 g/dL (14.0-18.0); IMM GRAN# 0.02 X1000 (0.0-0.04); IMM GRAN% 0.8 % (0.0-0.5); LYMPH# 0.34 X1000 (1.2-3.4); LYMPH% 13.8 % (20.5-51.1); MCH 32.3 PG (27-31); MCHC 32.7 g/dL (33-37); MONO# 0.52 X1000 (0.11-0.59); MONO% 21.1 % (1.7-9.3); MPV 9.5 FL (7.4-10.4); NEUT# 1.46 X1000 (1.4-6.5); NEUT% 59.1 % (42.2-75.2); PLT 135 X1000 (130-400); RBC 3.03 XMIL (4.7-6.1); RDW 14.9 % (11.5-14.5); WBC 2.47 X1000 (4.8-10.8)
[2018-11-22 08:04] LABS: LYMPHS 16 % (21-51); MONO 6 % (1-9); NRBC 1 % (0-0); SEGS 78 % (42-75)
--- NOTE | 2018-11-22 09:30 | HEMO/ONC PROGRESS NOTE ---
DATE: 11/22/2018 SUBJECTIVE: Patient says he is slowly starting to breathe better. OBJECTIVE: Vital Signs: Temperature 97.9 degrees, heart rate 64, respiratory rate 18, blood pressure 115/68, satting 97% on nasal cannula. General: Patient is awake, lying in bed, no acute distress noted. HEENT: Anicteric. Pupils PERRLA. Mucous membranes appear to be moist. Chest: Bilateral breath sounds diminished bilaterally. Cardiovascular: S1, S2. Regular rate and rhythm. Abdomen: Soft, nontender. Bowel sounds present in all 4 quadrants. Neurologic: Alert and oriented x3. LABORATORY DATA: White cell count is 10.47, hemoglobin 9.8, hematocrit 30.0, platelets are 135. ASSESSMENT/PLAN: 1. Non-Hodgkin lymphoma that has been very well under control: Continue to monitor at this time. 2. Pulmonary embolism: Continue Lovenox as ordered at this time. Can transition to Coumadin for oral anticoagulation. 3. Suspect right lower lobe pneumonia: Continue antibiotics as ordered per primary medical team. Continue to monitor. 4. Anemia: Hemoglobin and hematocrit continue to be stable. Continue to monitor closely and transfuse as needed. Dictated by JAKY Wei for Jacinto Mackey MD cc: JAKY Wei MD [facility]
[2018-11-22] MEDS: LIPITOR PO SCH (10:10)
[2018-11-22] MEDS: NORVASC PO SCH (10:10)
[2018-11-22] MEDS: ZYVOX PO SCH (10:10)
[2018-11-22] MEDS: VITAMIN B-12 PO SCH (10:11)
[2018-11-22] MEDS: LOVENOX SUBQ SCH ×2 (10:12→21:57)
--- NOTE | 2018-11-22 21:23 | PROGRESS NOTE ---
DATE: 11/22/2018 Interval history. No events acute overnight. Patient did have episode of confusion at nighttime however he was redirected, reoriented and he became calm. SUBJECTIVE: He states he was able to go to the bathroom. At that time he starts feeling a little short of breath and was having chest pain. He continues to have dry cough. VITAL SIGNS: Temperature 97.7 degrees, pulse 71, blood pressure 120/6, saturating 100% on room air. PHYSICAL EXAMINATION: General: Does not appear in any acute distress. Oral cavity is moist. Lungs: Air entry bilaterally equal. No wheeze, rhonchi, crackles. S1, S2 normal. No murmur or gallop. Abdomen: Soft, nontender. No lower extremity edema. Input, output suggests positive 200 mL. LABS: Today suggestive of leukopenia with WBC of 2.4, hemoglobin of 9.8 and platelet count of 135,000. No BMP today. Microbiology blood culture no growth till date. The patient has not been able to make any sputum. Procalcitonin level was less than 0.25. ASSESSMENT AND PLAN: 1. Acute right lower lobe pulmonary embolism, based on CT scan it could be subacute or chronic as well. Continue subcutaneous Lovenox and transition patient to Xarelto after discussing with social sciences research scientist team, patient's family and high school music instructor considering cost effectiveness issues. My plan is to start Xarelto tomorrow . 2. Suspected right lower lobe pneumonia with failed outpatient treatment. The CT scan does have minimal infiltrate on right lower lobe. Previously he had received ceftriaxone, doxycycline among antibiotics as an outpatient. Continue intravenous Zosyn to complete IV antibiotics course as long as he is in the hospital, stop Zyvox considering leukopenia. 3. Leukopenia and anemia likely anemia of chronic disease. Stop Zyvox. Follow up with CBC tomorrow. 4. History of non-Hodgkin lymphoma aware. Last chemotherapy was in March 2018 when he had rituximab. CAT scan on September 2018 did not have any FDG avid neoplasm. Hematology on board. 5. History of essential hypertension, hyperlipidemia. Continue home amlodipine, atorvastatin. Hyperglycemia with hemoglobin A1c suggestive of diabetes. I would advise him lifestyle modification. 6. Disposition. I will have physical therapy evaluate the patient. He continues to have mild shortness of breath. Hopefully with treatment of pneumonia and enoxaparin he would start feeling better. I anticipate discharge later this week and if his shortness of breath improves. Plan of care discussed with him, his at bedside. All of their questions have been answered satisfactorily. cc: Claudio Soto MD
[2018-11-23] MEDS: DUONEB (A & A) INH SCH ×4 (03:12→22:37)
[2018-11-23] MEDS: PROTONIX IV SCH (05:24)
[2018-11-23] MEDS: ZOSYN 3.375 GM in NS 50 ML IV SCH ×4 (05:24→21:33)
[2018-11-23] MEDS: SODIUM CHLORIDE 0.9% INJ SCH (05:24)
[2018-11-23 07:41] LABS: BASO# 0.02 X1000 (0.0-0.2); BASO% 0.8 % (0.0-0.8); EOS# 0.22 X1000 (0.0-0.7); EOS% 9.3 % (0.0-10.0); HEMATOCRIT 33.4 % (42.0-52.0); HEMOGLOBIN 10.8 g/dL (14.0-18.0); IMM GRAN# 0.06 X1000 (0.0-0.04); IMM GRAN% 2.5 % (0.0-0.5); LYMPH# 0.57 X1000 (1.2-3.4); LYMPH% 24.1 % (20.5-51.1); MCH 31.7 PG (27-31); MCHC 32.3 g/dL (33-37); MCV 97.9 FL (81-99); MONO# 0.51 X1000 (0.11-0.59); MONO% 21.5 % (1.7-9.3); MPV 9.7 FL (7.4-10.4); NEUT# 0.99 X1000 (1.4-6.5); NEUT% 41.8 % (42.2-75.2); PLT 153 X1000 (130-400); RBC 3.41 XMIL (4.7-6.1); RDW 14.9 % (11.5-14.5); WBC 2.37 X1000 (4.8-10.8)
[2018-11-23 08:03] LABS: CALCIUM 8.9 mg/dL (8.8-10.2); CREATININE 1.3 mg/dL (0.7-1.2); POTASSIUM 3.9 mmol/L (3.5-5.1)
[2018-11-23 09:00] LABS: EOS 6 % (1-10); LYMPHS 18 % (21-51); MONO 12 % (1-9); SEGS 64 % (42-75)
[2018-11-23] MEDS: NORVASC PO SCH (09:44)
[2018-11-23] MEDS: XARELTO PO SCH ×2 (09:44→17:28)
[2018-11-23] MEDS: LIPITOR PO SCH (09:44)
[2018-11-23] MEDS: VITAMIN B-12 PO SCH (09:44)
--- NOTE | 2018-11-24 00:10 | PROGRESS NOTE ---
DATE: 11/23/2018 INTERVAL HISTORY: Physical Therapy had evaluated the patient, and the patient was able to walk in the hallway. He only was mildly short of breath. His cough has significantly gone down. He denies noticing any blood in his stool. VITAL SIGNS: Temperature 98.2 degrees, pulse 65, blood pressure 126/63, saturating 96% on room air. PHYSICAL EXAMINATION: General: Does not appear in any acute distress. HEENT: Oral cavity moist. Lungs: Air entry bilaterally equal. No wheeze, rhonchi, crackles. Bronchovesicular breath sounds. S1, S2 normal. No murmur, rub, or gallop. Abdomen: Soft, nontender. No lower extremity edema. LABS: Suggestive of persistent leukopenia, with WBC of 2.37, hemoglobin of 10.8, platelets of 153,000. Normal electrolytes. Creatinine of 1.3. Microbiology: Blood culture with no growth to date. ASSESSMENT AND PLAN: 1. Acute right lower lobe pulmonary embolism. Based on CT, it could be [id number]. Continue Xarelto, which has been started today. As per discussion with social work team, the patient's family, and boiler plant worker, considering the cost effectiveness and compliance issue. The patient should be on Xarelto 15 mg b.i.d. for 21 days, and then transition to 20 mg once a day, for a total of 6 months. 2. Possible right lower lobe pneumonia, with failed outpatient treatment, including ceftriaxone, doxycycline, among others. Continue intravenous Zosyn. His day 1 of antibiotics was 11/20. 3. Leukopenia. Could be related to Zyvox use. However, he had only received 2 doses of Zyvox, following which this was noticed. It has been stopped. Follow up CBC tomorrow. 4. Anemia of chronic disease. Currently, in acceptable range. 5. History of non-Hodgkin's lymphoma, with last chemotherapy in March 2018, which was rituximab. CAT scan in September 2018 did not have any FDG avid neoplasm. Hematology on board. 6. History of essential hypertension and hyperlipidemia. Will continue home amlodipine and atorvastatin. 7. New diagnosis of diabetes, with hemoglobin A1c of 6.6. I advised him on lifestyle modification. 8. Disposition. I will await CBC tomorrow. If the CBC shows improvement in WBC count, then my plan is to discharge him home. Should follow up with outpatient boiler plant worker and his regular doctor. Plan of care was discussed with him and his family members at bedside. All of their questions have been answered. cc: Claudio Soto MD
[2018-11-24] MEDS: DUONEB (A & A) INH SCH ×4 (03:15→22:06)
[2018-11-24] MEDS: ZOSYN 3.375 GM in NS 50 ML IV SCH ×4 (04:03→20:19)
[2018-11-24] MEDS: SODIUM CHLORIDE 0.9% INJ SCH (04:41)
[2018-11-24] MEDS: PROTONIX IV SCH (04:41)
[2018-11-24 07:38] LABS: BASO# 0.03 X1000 (0.0-0.2); BASO% 1.5 % (0.0-0.8); EOS# 0.23 X1000 (0.0-0.7); EOS% 11.5 % (0.0-10.0); HEMATOCRIT 30.9 % (42.0-52.0); HEMOGLOBIN 9.9 g/dL (14.0-18.0); IMM GRAN# 0.02 X1000 (0.0-0.04); MCH 31.7 PG (27-31); MONO# 0.45 X1000 (0.11-0.59); MONO% 22.5 % (1.7-9.3); MPV 9.5 FL (7.4-10.4); NEUT# 0.87 X1000 (1.4-6.5); NEUT% 43.5 % (42.2-75.2); PLT 138 X1000 (130-400); RBC 3.12 XMIL (4.7-6.1)
[2018-11-24 07:59] LABS: BANDS 6 % (0-1); EOS 4 % (1-10); LYMPHS 22 % (21-51); MONO 14 % (1-9); SEGS 54 % (42-75)
[2018-11-24] MEDS: VITAMIN B-12 PO SCH (09:55)
[2018-11-24] MEDS: XARELTO PO SCH ×2 (09:55→16:17)
[2018-11-24] MEDS: NORVASC PO SCH (09:55)
[2018-11-24] MEDS: LIPITOR PO SCH (09:55)
--- NOTE | 2018-11-24 14:37 | PROGRESS NOTE ---
DATE: 11/24/2018 INTERVAL HISTORY: The patient has been able to walk in the hallway and gets only mildly short of breath. He thinks his cough and shortness of breath has decreased from 10/10 scale to 6/10 scale. He continues to have diarrhea with stool without any blood in it. We discussed about improvement in pneumonia, negative procalcitonin finding, bone marrow suppression related to antibiotics. I answered all of his questions. His son is at bedside. All of their questions have been answered. OBJECTIVE: Vital signs: Temperature of 98.1 degrees, pulse 67, blood pressure 104/65, saturating 94% on room air. General: Does not appear in any acute distress. HEENT: Oral cavity moist. Lungs: Air entry bilaterally equal. No wheeze, rhonchi, or crackles. Cardiovascular: S1, S2 normal. No murmur or gallop. Abdomen: Soft, nontender. Extremities: No lower extremity edema. LABS: Suggestive of WBC of 2,000, hemoglobin of 9.9, platelet count of 138,000. He has neutropenia with absolute neutrophil count less than 1,000. His electrolytes are in acceptable range. MICROBIOLOGY: Blood culture no growth to date. ASSESSMENT AND PLAN: 1. Acute right lower lobe pulmonary embolism based on CT. It could be subacute or chronic as well. Continue Xarelto which has been started since November 23. After discussion with the patient's family, pipe and tank fabricator, and social work considering cost-effective issue, the patient's family agreed for Xarelto. The patient should be on Xarelto 15 mg b.i.d. for 21 days and then transition to 20 mg once a day for a total of 6 months at least. 2. Possible right lower lobe pneumonia. Failed outpatient treatment including ceftriaxone, doxycycline, among others. Continue intravenous Zosyn. Day 1 of antibiotics is November 20, 2018. 3. Leukopenia, neutropenia, normocytic anemia. He had received linezolid on admission which could have contributed to his leukopenia. Presence of pneumonia could also be leading to bone marrow suppression. Linezolid has been stopped. I will give the patient a 1 time dose of Neupogen and depending on his response, we will consider further doses starting tomorrow. Follow up CBC with differential. Start patient on neutropenic precautions and neutropenic diet. 4. Antibiotic-associated diarrhea. He does have leukopenia, though denies abdominal pain and has antibiotic exposure in hospital setting. Considering suspicion for C. difficile, I will send C. difficile antigen and toxin and will await results before starting p.o. vancomycin. 5. History of non-Hodgkin's lymphoma with last chemotherapy in March 2018 with rituximab. Imaging in September 2018 did not detect any FDG avid neoplasm. Hematology on board. 6. Continue home amlodipine for hypertension and atorvastatin for hyperlipidemia. 7. Disposition. I am awaiting his CBC to improve and his cough and shortness of breath to improve. My goal is to give him at least 5 days of intravenous antibiotics. At that point, I will consider discharging. Depending on his response, I am anticipating discharge home early next week. Plan of care was discussed with the patient, his son at bedside, and pipe and tank fabricator on the phone. cc: Claudio Soto MD
[2018-11-24] MEDS: GRANIX SUBQ ONE ×2 (16:13→16:17)
[2018-11-25] MEDS: DUONEB (A & A) INH SCH ×2 (05:00→09:46)
[2018-11-25] MEDS: PROTONIX IV SCH (05:01)
[2018-11-25] MEDS: ZOSYN 3.375 GM in NS 50 ML IV SCH ×3 (05:11→09:18)
[2018-11-25 07:26] LABS: BASO# 0.03 X1000 (0.0-0.2); BASO% 0.4 % (0.0-0.8); EOS# 0.27 X1000 (0.0-0.7); HEMATOCRIT 32.3 % (42.0-52.0); HEMOGLOBIN 10.4 g/dL (14.0-18.0); IMM GRAN# 0.47 X1000 (0.0-0.04); IMM GRAN% 6.9 % (0.0-0.5); LYMPH# 0.58 X1000 (1.2-3.4); LYMPH% 8.5 % (20.5-51.1); MCH 31.8 PG (27-31); MCHC 32.2 g/dL (33-37); MCV 98.8 FL (81-99); MONO# 0.67 X1000 (0.11-0.59); MONO% 9.8 % (1.7-9.3); MPV 9.4 FL (7.4-10.4); NEUT% 70.4 % (42.2-75.2); PLT 144 X1000 (130-400); RBC 3.27 XMIL (4.7-6.1); RDW 15.2 % (11.5-14.5); WBC 6.82 X1000 (4.8-10.8)
[2018-11-25 08:15] VITALS: BP 125/63
--- NOTE | 2018-11-25 08:34 | HEMO/ONC PROGRESS NOTE ---
DATE: 11/25/2018 SUBJECTIVE: The patient continues to slowly improve. Shortness of breath continues to get better. OBJECTIVE: Vital Signs: Temperature 98.1 degrees, heart rate 67, respiratory rate 17, blood pressure 122/69, saturations 96% on room air. General: Patient is awake, lying in bed, no acute distress noted. HEENT: Anicteric, pupils PERRLA. Mucous membranes appear to be moist. Cardiovascular: S1, S2. Regular rate and rhythm. Lungs: Breath sounds clear to auscultation. Abdomen: Soft, nontender. Bowel sounds present in all 4 quadrants. Neurologic: Alert and oriented x3. No focal deficits noted. LABORATORY DATA: White cell count 6.82, hemoglobin 10.4, hematocrit 32.3, platelets are 144,000. ASSESSMENT/PLAN: 1. Non-Hodgkin's lymphoma: This is improved fair amount of control. Continue to monitor at this time. 2. Pulmonary embolism: Continue Xarelto 15 mg twice a day for 21 days. We will follow up in the office to transition him to 20 mg daily after that. 3. Pneumonia: Continue antibiotics as per primary medical team. 4. Leukopenia: White blood cell count is improved after 1 dose of Neupogen. Today, white blood cell count 6.82, ANC is up to 4800. Continue to monitor for any fevers. 5. Anemia: Hemoglobin and hematocrit continue to be stable. Today, hemoglobin stable, hematocrit 32.3. Continue to monitor. Transfuse as needed. Dictated by JAKY Wei for Jacinto Mackey MD cc: Jacinto Mackey MD [facility]
[2018-11-25 08:59] LABS: BANDS 16 % (0-1); LYMPHS 8 % (21-51); MONO 4 % (1-9); SEGS 70 % (42-75)
[2018-11-25] MEDS: XARELTO PO SCH (09:18)
[2018-11-25] MEDS: VITAMIN B-12 PO SCH (09:18)
[2018-11-25] MEDS: NORVASC PO SCH (09:18)
[2018-11-25] MEDS: LIPITOR PO SCH (09:18)
--- NOTE | 2018-11-25 16:54 | DISCHARGE SUMMARY ---
ADMISSION DATE: 11/21/2018 DISCHARGE DATE: 11/25/2018 DISCHARGE DIAGNOSES: 1. Acute right lower lobe pulmonary embolism. 2. Possible right lower lobe pneumonia. 3. Right lower lobe pneumonia leading to cough and dyspnea. 4. Leukopenia, neutropenia. 5. Normocytic anemia. 6. Antibiotic associated diarrhea. OTHER DIAGNOSES: 1. History of non-Hodgkin's lymphoma of thorax with chemotherapy with rituximab in March 2018 and negative PET scan in September 2018. 2. Essential hypertension. 3. Hyperlipidemia. CONSULTATIONS DURING HOSPITALIZATION: Hematology/oncology, Dr. Mackey. IMAGING: Chest x-ray on admission had atelectasis versus tiny right basilar infiltrate. Pulmonary arteriogram showing small filling defect in branch of right pulmonary artery leading to right lower lobe indicating an embolus. It could be subacute or chronic with low clot burden. Right basilar consolidation and atelectasis and significant improvement in multiple lung nodules with mediastinal lymphadenopathy reduced to minimum. VITAL SIGNS: At the time of discharge temperature 98.1 degrees, pulse 76, blood pressure 125/63, saturating 97% on room air. PHYSICAL EXAMINATION: General: Does not appear in acute distress. HEENT: Oral cavity is moist. Respiratory: Air entry bilaterally equal. No wheeze or rhonchi. Mild crackles bilateral bases. Cardiovascular: S1, S2 normal. No murmur, rub, or gallop. Abdomen: Soft, nontender. Extremities: No lower extremity edema. LABS: At the time of discharge suggestive of WBC of 6.8, hemoglobin of 10.4, platelet count of 144,000, creatinine of 1.3, BUN of 9. Normal electrolytes. DISCHARGE MEDICATIONS: Amlodipine 5 mg daily, atorvastatin 10 mg daily, vitamin B12 1000 mcg daily, benzonatate 100 mg p.o. t.i.d. for cough 21 tablets, lactobacillus 1 capsule daily 7 to 10 days, Xarelto 15 mg b.i.d. for 18 days and then 20 mg at nighttime to complete 6 months of therapy. HOSPITAL COURSE SUMMARY: Mr. Sow is an 83-year-old man who came in with complaints of gradually worsening shortness of breath, back pain, cough and fever. In the emergency room, he appeared to be hemodynamically stable. According to history given by patient and the family, the patient has been having cough since September 2018 and was treated for pneumonia multiple times. However, his cough and shortness of breath had not gotten better. He was treated on ceftriaxone and doxycycline without any particular relief, so he decided to come to the emergency room. In the emergency room, CT scan had detected right-sided lower lobe pulmonary embolism, which could be subacute or chronic. However, considering his symptoms and very little infiltrate on right lower lobe, we decided to treat it as acute pulmonary embolism and right lower lobe pneumonia. He was initially started on p.o. linezolid and intravenous Zosyn. However, the next day, he had developed leukopenia for which his p.o. linezolid was stopped after about 3 or 4 doses. He was continued on intravenous Zosyn. Initially, he was treated with subcutaneous enoxaparin which was later on changed to p.o. Xarelto after discussing risks versus benefit, and cost effectiveness with the family. During hospital admission the patient also developed leukopenia related to linezolid use and he received 1 dose off filgrastim following which his blood count had increased. At the time of discharge the patient hemodynamically was stable. His blood count had started improving. He was no longer neutropenic or leukopenic after a dose of filgrastim and he was tolerating Xarelto well. It was decided to discharge him. The patient continued to have cough and shortness of breath. However, as per the report, his cough and shortness of breath had decreased to less than 50% as compared to presentation. His procalcitonin level was significantly low, so at the time of discharge, he was not prescribed any antibiotics. He had received almost 5 days of intravenous Zosyn. During hospital admission, he also developed antibiotic associated diarrhea but Clostridium difficile testing was negative. He was prescribed lactobacillus at the time of discharge. TIME SPENT: More than 30 minutes were spent in discharging this patient. Plan of care were discussed with the patient and his son at bedside. It was discussed with the patient's and daughter at bedside as well. All of their questions have been answered. cc: Claudio Soto MD
--- NOTE | 2018-11-25 17:51 | Extremity Venous Study ---
PROCEDURE NAME: Venous U/S Bilateral Legs - 11/21/2018 REFERRING PHYSICIAN: Lalit Mills MD READING PHYSICIAN: Mukesh Adhikari MD DIVERSIONAL THERAPIST: [place]. INDICATION: Pulmonary embolus. FINDINGS: The deep and superficial veins of both lower extremities were imaged throughout their course. They are compressible, patent, and without thrombus. INTERPRETATION: No deep vein thrombosis (DVT) or superficial vein thrombosis (SVT) in either lower extremity. cc: MD Parveen Henry CRNP
[2018-12-14] MEDS ORDERED: XARELTO PO SCH (17:00)
== END 2018-11-25 12:59 | disposition home health service (06) | DRG 175 ==
LOC: ED 11:28 → EDIPHOLD 11-21 02:25 → SUATTDRO 11-21 02:25 → 3N 11-21 15:33
PROVIDERS: ATTEND Internal Medicine
CPT/HCPCS: 71020; 71046; 71275; 80048; 80053; 82607; 82728; 82746; 82805; 83036; 83540; 83550; 83605; 83880; 84145; 84484; 85025; 87040; 87324; 87449; 93005; 93970; 94640; 94761; 94762; 94799; 96361; 96365; 96366; 96367; 96372; 96375; 97161; 99285; 99291; A9270; C9113; J1446; J1447; J1650; J2543; J3370; J7030; Q9967; S0164

== ENCOUNTER 2019-04-18 08:05 | Inpatient (IN) ==
--- NOTE | 2019-04-18 08:35 | PROVIDER DOCUMENTATION ---
HPI-Abdominal Pain/GI Problem - General Chief Complaint: Diarrhea Stated Complaint: DIARRHEA Time Seen by Provider: 04/18/19 08:22 Source: patient, family Allergies/Adverse Reactions: Patient Allergies Allergy/AdvReac Type Severity Reaction Status Date / Time linezolid [From Zyvox] Allergy leukopenia Verified 04/18/19 10:02 Home Medications: Home Medication List Medication Instructions Recorded Confirmed Last Taken Type Atorvastatin Calcium [Lipitor] 10 mg PO DAILY 02/26/14 02/28/19 03/02/14 History Amlodipine [Norvasc] 5 mg PO DAILY 11/20/18 02/28/19 Unknown History Lactobacillus Rhamnosus GG 1 ea PO DAILY #10 cap 11/25/18 02/28/19 Unknown Rx [Culturelle] Rivaroxaban [Xarelto] 20 mg PO WSUPPER #90 tab 11/25/18 02/28/19 Unknown Rx Ciprofloxacin HCl [Cipro] 500 mg PO BID #14 tab 02/28/19 Unknown Rx Loperamide HCl [Loperamide] 2 mg PO DIRECTED PRN #16 tab 02/28/19 Unknown Rx Tamsulosin HCl 1 cap PO DAILY 02/28/19 02/28/19 Unknown History - History of Present Illness-ABD Nature of Presenting Problems: pt has diarrhea for approx 2 mos, has been seeing Dr Mensah. Was told to stop I mmodium, other anti-diarrheals, which he has done. Was placed on Miralax. Has gotten worse since. Called Dr Mensah this am, was told to come to ED, would be admitted, and Dr Mensah would see him in hospital. Has lost about 10 lbs over last month. Colonscopy is scheduled. No fever, no N/V, no abd pain, no abx use since mid February, when was seen here for diarrhea. Quality of Pain: reports: none Timing: reports: still present, getting worse Modifying Factors: improves with: nothing Associated Symptoms: reports: denies symptoms Similar Symptoms Previously?: Yes Recently seen or treated by another doctor?: Yes Review of Systems - Adult - REVIEW OF SYSTEMS - ADULT Constitutional: reports: other (weakness) Eyes: reports: no symptoms reported Ears, Nose, Mouth & Throat: reports: no symptoms reported Cardiovascular: reports: no symptoms reported Respiratory: reports: no symptoms reported Gastrointestinal: reports: see HPI Genitourinary: reports: no symptoms reported Musculoskeletal: reports: no symptoms reported Integumentary: reports: no symptoms reported Neurological: reports: no symptoms reported Psychiatric: reports: no symptoms reported Endocrine: reports: no symptoms reported Hematologic/Lymphatic: reports: no symptoms reported Allergic/Immunologic: reports: no symptoms reported Past History - Adult - PAST MEDICAL HISTORY-ADULT Review of Records: reports: Medications Reviewed Major Childhood Illnesses: reports: denies history Cardiovascular: reports: HTN, hyperlipidemia Respiratory: reports: denies history Gastrointestinal: reports: denies history Obstetrical/Gynecological: reports: denies history Genitourinary: reports: kidney stones Musculoskeletal: reports: denies history Neurological: reports: denies history Psychiatric: reports: denies history Endocrine/Immune: reports: denies history, Lymphoma Other Conditions: reports: denies history - PRIOR SURGERIES/PROCEDURES Surgical/Procedure History: reports: reviewed, not pertinent, indwelling device, hernia repair, other (lithrotripsy; cystoscopy) - IMMUNIZATION STATUS Childhood Immunizations: See Nurse Assessment Flu Vaccine: See Nurse Assessment - FAMILY HISTORY Family History: reviewed, not pertinent Physical Exam-General - PHYSICAL EXAM-ADULT Initial Vital Signs Reviewed: Yes - CONSTITUTIONAL General Appearance: appears well, alert, no apparent distress, other (generalize d weakness) - EYES Eyes: PERRL/EOMI, pink conjunctivae - HEAD, EARS, NOSE, MOUTH & THROAT HENMT: normocephalic/atraumatic, moist mucous membranes, normal ENT inspection, pharynx normal - NECK Neck: non-tender, full range of motion, supple, normal inspection - RESPIRATORY Respiratory: chest non-tender, lungs clear, normal breath sounds, no pleuratic chest pain, no respiratory distress, no accessory muscle use - CARDIOVASCULAR Cardiovascular: regular rate, rhythm, no edema - GASTROINTESTINAL (ABDOMEN) Abdominal Exam: non tender, soft, abnormal bowel sounds (hyperactive) - MUSCULOSKELETAL Back Exam: normal inspection, no CVA tenderness, no vertebral tenderness Extremity: normal range of motion, non-tender, normal gait, normal inspection - SKIN Integumentary: normal color, normal turgor, warm/dry - NEUROLOGIC Neurologic: arc and gas welder II-XII nml as tested, grossly normal, no motor/sensory deficits - PSYCHIATRIC Psych/Mental Status: normal mood/affect, normal thought content, normal thought process, oriented x 3 Progress - PLAN OF CARE/RESULTS Progress/Plan/Lab Results: Vital Signs - 8 hr 07/05/19 08:08 Temperature 97.5 F L Pulse Rate 84 Respiratory Rate 17 Blood Pressure 108/65 O2 Sat by Pulse Oximetry 97 Result Diagrams: 04/18/19 09:10 04/18/19 09:30 - CONSULTS/PCP/HOSPITALIST Notification #1 *Consult/PCP/Hospitalist*: Summer Time Discussed: 10:21 Reason/Comments: Admit to Dr Royal Consult Disposition: Will see in ED, Admit Departure - Departure Date of Disposition Decision: 04/18/19 Time of Disposition Decision: 10:22 DIAGNOSIS: Diarrhea, Generalized weakness Disposition: ADMITTED INPATIENT 09 Certified Medical Emergency: Emergent Condition: Good Additional Freetext Instructions: ED Follow Up Instructions: You have been treated by a care provider in the Emergency Department. These instructions are being provided to you so you can have an understanding of how to care for yourself upon discharge. Upon discharge from the Emergency Department, you are responsible for making arrangements for follow-up care by a physician of your choice. Take all prescribed medications as directed. Return to the Emergency Department immediately for any new or worsening symptoms. You may call the Physician Referral phone number at [phone] to obtain a list of Physicians who are taking new patients. Referrals and Follow-Ups: Conor Jimenez MD [Primary Care Provider] - - Critical Care Note This patient required my direct & personal management of CC.: No Attestation - Physician/ [place] Attestation Patient care was provided by Advanced Practice Provider:: No The physician spent face to face time with patient:: Yes Advanced Practice Provider documentation review:: Supervising physician onsite and consulted in the evaluation and care of this patient. The physician did have a face to face encounter with the patient.
[2019-04-18] MEDS ORDERED: NS 1,000 ML IV ONE ×2 (08:40→08:41)
[2019-04-18 09:46] LABS: BASO# 0.02 X1000 (0.0-0.2); BASO% 0.3 % (0.0-0.8); EOS# 0.17 X1000 (0.0-0.7); EOS% 2.6 % (0.0-10.0); HEMOGLOBIN 10.3 g/dL (14.0-18.0); IMM GRAN# 0.04 X1000 (0.0-0.04); IMM GRAN% 0.6 % (0.0-0.5); LYMPH# 0.99 X1000 (1.2-3.4); LYMPH% 15.2 % (20.5-51.1); MCH 31.8 PG (27-31); MCHC 33.2 g/dL (33-37); MCV 95.7 FL (81-99); MONO# 0.75 X1000 (0.11-0.59); MONO% 11.5 % (1.7-9.3); MPV 10.2 FL (7.4-10.4); NEUT# 4.54 X1000 (1.4-6.5); NEUT% 69.8 % (42.2-75.2); PLT 97 X1000 (130-400); RBC 3.24 XMIL (4.7-6.1); RDW 16.4 % (11.5-14.5); WBC 6.51 X1000 (4.8-10.8)
[2019-04-18 10:01] LABS: AGAP 11; ALB/GLOB RATIO 1.4; ALBUMIN 3.6 g/dL (3.5-5.0); ALKALINE PHOSPHATASE 110 U/L (32-122); BUN 12 mg/dL (8-22); CHLORIDE 103 mmol/L (98-107); COSMO 277; ESTIMATED GFR > 60; GLUCOSE 124 mg/dL (70-104); GOT 38 U/L (10-34); GPT 40 U/L (10-44); POTASSIUM 4.4 mmol/L (3.5-5.1); SODIUM 138 mmol/L (136-145); TCO2 24 mmol/L (25-35); TOTAL BILIRUBIN 0.94 mg/dL (0.20-1.00); TOTAL PROTEIN 6.2 g/dL (6.3-8.3)
[2019-04-18] MEDS ORDERED: ZOFRAN IV PRN (10:49)
[2019-04-18] MEDS ORDERED: TYLENOL PO PRN (10:49)
--- NOTE | 2019-04-18 11:39 | HISTORY AND PHYSICAL ---
HISTORY OF PRESENT ILLNESS: This is an 83-year-old who came in. He has had 4 weeks of loose stool. Actually, he has had trouble with loose stool for quite some time, and he was having trouble initially when he was on Xarelto, treated with Xarelto for 4 months because he had a pulmonary thromboemboli. I think Dr. Mackey has followed him as well. His ready to wear department manager is Dr. Mensah; they were thinking about doing I think maybe a flex sig this next Sunday. He has lost weight, not able to control his bowels in the last week or two, just loose watery stool. He denies any recent antibiotics. PAST MEDICAL HISTORY: 1. Non-Hodgkin's lymphoma 5 years ago. I think he had recurrence and was treated, but has been in remission now for several years. 2. Hypertension. 3. Hyperlipidemia. 4. History of kidney stones. I think they are planning on lithotripsy on 1 stone. 5. He was treated for pulmonary thromboemboli. He was on Xarelto for 4 months. He had bloody diarrhea and gross hematuria. It was a small emboli and they have stopped the Xarelto. PAST SURGICAL HISTORY: Kidney stone removal, I think apparently hernia repair. FAMILY HISTORY: Aneurysm. ALLERGIES: No known drug allergies. REVIEW OF SYSTEMS: General: He has lost weight. Appetite is poor. HEENT: No change in visual or hearing acuity. Respiratory: No increased work of breathing or dyspnea. Cardiovascular: No chest pain or tachy palpitation. GI and : Unremarkable. Musculoskeletal/Neurologic: No significant complaints. Endocrinologic/Hematologic: No significant history. PHYSICAL EXAMINATION: GENERAL: Awake, alert and oriented x3. Well-developed, well-nourished white male. EYES: Pupils are equal and round. LUNGS: Clear in all lung alvarado. CARDIOVASCULAR EXAM: Regular rhythm and rate without murmur or S3. ABDOMEN: Soft, nontender SKIN: Warm and dry. VITAL SIGNS: Temperature is 97.5 degrees, blood pressure 109/57, pulse 66, respirations 20. Height 5 feet 11 inches. EXTREMITIES: No pedal edema. NECK: Supple. No thyromegaly. LABORATORY DATA: White count 6510, hematocrit 31, hemoglobin 10, platelet count 97,000. Sodium 138, potassium 4.4, chloride 103. BUN 12, creatinine 1.0, calcium 8.0. AST is 38, ALT is 40, albumin is 3.6. ASSESSMENT AND PLAN: 1. Persistent diarrhea, chronic diarrhea. We will check stool studies and check enteric pathogens, ova and parasites. Check for Clostridium difficile. Protein stores look good. Electrolytes look good. We will check a C-reactive protein and a sedimentation rate. We will check T4 and thyroid stimulating hormone. We will check B 12 and folate. Get an AM cortisol level. 2. Recent treatment for small pulmonary thromboembolism with Xarelto. He is off the Xarelto at this time. 3. Mild normocytic anemia. Hematocrit is 31, hemoglobin is 10. We will follow. We will check iron studies, B 12 and folate. 4. History of non-Hodgkin's lymphoma, which appears to be in remission. cc: Jose Royal MD
--- NOTE | 2019-04-18 12:26 | Diag Imaging Result Doc PS360 ---
EXAM: ABDOMEN FLAT/UPRIGHT 04/18/2019 HISTORY: diarrhea TECHNIQUE: Flat and upright abdomen portable at 1152 COMMENT: The stomach and small bowel are not distended. There is some gas in the right colon. There is no evidence of organomegaly or mass. IMPRESSION: Nonspecific abdomen. Electronically signed by Tavo Esquivel 04/18/2019 12:23 PM
[2019-04-18] MEDS: VANCOCIN PO SCH ×2 (15:49→21:26)
[2019-04-18] MEDS: ZANTAC PO SCH (21:26)
[2019-04-19] MEDS: VANCOCIN PO SCH ×4 (03:12→22:02)
[2019-04-19 07:38] LABS: BASO# 0.02 X1000 (0.0-0.2); BASO% 0.4 % (0.0-0.8); EOS% 2.1 % (0.0-10.0); HEMATOCRIT 35.8 % (42.0-52.0); HEMOGLOBIN 11.6 g/dL (14.0-18.0); IMM GRAN# 0.02 X1000 (0.0-0.04); IMM GRAN% 0.4 % (0.0-0.5); LYMPH# 0.69 X1000 (1.2-3.4); LYMPH% 14.5 % (20.5-51.1); MCH 31.4 PG (27-31); MCHC 32.4 g/dL (33-37); MONO% 8.4 % (1.7-9.3); MPV 9.9 FL (7.4-10.4); NEUT# 3.54 X1000 (1.4-6.5); NEUT% 74.2 % (42.2-75.2); PLT 113 X1000 (130-400); RBC 3.69 XMIL (4.7-6.1); RDW 16.7 % (11.5-14.5); WBC 4.77 X1000 (4.8-10.8)
[2019-04-19 08:03] LABS: AGAP 12; BUN 8 mg/dL (8-22); CALCIUM 7.9 mg/dL (8.8-10.2); CHLORIDE 107 mmol/L (98-107); CK PROFILE 184 U/L (24-204); COSMO 277; CREATININE 0.8 mg/dL (0.7-1.2); ESTIMATED GFR > 60; GLUCOSE 126 mg/dL (70-104); MAGNESIUM 2.1 mg/dL (1.5-2.7); POTASSIUM 4.6 mmol/L (3.5-5.1); SODIUM 139 mmol/L (136-145); TCO2 20 mmol/L (25-35)
[2019-04-19 08:09] LABS: INR 0.99; PROTIME 13.8 Seconds (11.0-16.0)
[2019-04-19 08:39] LABS: FREE T4 1.12 ng/dL (0.93-1.70); TSH 3.81 uIUmL (0.27-4.20)
[2019-04-19] MEDS ORDERED: NORVASC PO SCH (09:00)
[2019-04-19] MEDS: FOLIC ACID PO SCH (09:33)
[2019-04-19] MEDS: ZANTAC PO SCH ×2 (09:33→22:02)
[2019-04-19] MEDS: LIPITOR PO SCH (09:33)
[2019-04-19] MEDS: FLOMAX PO SCH (09:33)
--- NOTE | 2019-04-19 10:20 | GASTROENTEROLOGY CONSULTATION ---
DATE: 04/19/2019 SINGLE RESOURCE BOSS: Dr. Mensah. REASON FOR CONSULTATION: Diarrhea. HISTORY: This is 83-year-old, white male, who has multiple medical problems including history of non-Hodgkin lymphoma. Apparently, he is in remission. He also carries a diagnosis of pulmonary embolism. He has seen Dr. Mensah for history of diarrhea. He has had loose stool for the past month or so. He has had 4 to 8 bowel movements a day usually during the daytime; has not had any nocturnal diarrhea. He has had some accidents and urgency as well. He tells me that he has not seen any blood or mucus in his stool. His appetite is fair; he eats well, but he has been experiencing these episodes of terrible diarrhea. Workup was in progress. In fact, he was scheduled to have flexible sigmoidoscopy on the tenth of this month, but for the past 2 weeks his symptoms have gotten worse to the point that he has sought medical intervention and showed up to the emergency room. He was admitted for further evaluation and treatment. He denies any fever or chills, has not had any headache or dizziness, but has been feeling weak. He has nagging cough productive of whitish sputum, but denies any hemoptysis. Denies chest pain, shortness of breath. Has not had any palpitation. Denies dysuria, polyuria or hematuria. PAST MEDICAL HISTORY: Significant for hypertension, hyperlipidemia, history of pulmonary embolism. He has history of non-Hodgkin lymphoma currently in remission. SURGERY: Nephrolithiasis. He had kidney stones removed and herniorrhaphy. MEDICATION: Prior to his hospitalization, he has been on Norvasc, Lipitor, folic acid, Zantac, tamsulosin and takes MiraLAX as needed. ALLERGIES: Claims to be allergic to Zyvox. SOCIAL HISTORY: Does not smoke. Does not drink. Does not do illicit drugs. FAMILY HISTORY: Noncontributory. REVIEW OF SYSTEMS: As per HPI as above. PHYSICAL EXAMINATION: General: On examination, very pleasant white gentleman sitting in the chair, conscious, alert, appears to be in no distress. VITALS: Temperature 98 degrees Fahrenheit, pulse 60 per minute, breathing 16, blood pressure was 95/44.HEENT: Head is atraumatic, normocephalic. Eyes: Conjunctivae is normal. Sclerae anicteric. Nares are patent. No discharge. Mouth: Buccal mucosa is moist. Throat is normal. Neck: Neck is supple. No lymphadenopathy, thyromegaly. Chest: Bilaterally symmetrical. It is moving with respirations. Breath sounds audible bilaterally. No rhonchi or crepitus could be heard. Heart: Audible. No murmur could be appreciated. Abdomen: Slightly distended, but soft. It is nontender. I could not appreciate a mass or visceromegaly. No ascites noted. Bowel sounds are audible. Extremities: No pedal edema, cyanosis, clubbing was noted. PUBLIC SPEAKING INSTRUCTOR: Grossly intact. No sensory or motor deficit noted. LABORATORIES REVIEWED.: WBC 6.51, hemoglobin 10.3, hematocrit 31.0, MCV 95.7, platelets were 97. Sodium 138, potassium 4.4, chloride 103, bicarbonate 24. BUN is 12, creatinine 1.0, glucose 124. AST is 38, ALT 40, total bilirubin was 0.94. Stool Clostridium difficile toxin was positive. IMPRESSION: Clostridium difficile colitis, most likely the cause for his diarrhea. The patient will be started on vancomycin 125 mg oral every 6 hours and recommended to continue gastrointestinal soft diet. Further plans will be made according to his progress. From a gastrointestinal point of view, there is no new suggestions. Advised to follow up with Dr. Mensah after discharge. Rest of the medical problems as per team. cc: Jesus Camacho MD
--- NOTE | 2019-04-19 11:42 | PROGRESS NOTE ---
DATE: 04/19/2019 SUBJECTIVE: He feels better. He is sitting up in a chair. Feels a little stronger. OBJECTIVE: Vital signs: T-max was 99.7 degrees, pulse 65, respirations 16, blood pressure 94 to 112 over 58 to 63. HEENT: Pupils are equal and round. Lungs: Clear in all lung alvarado. Cardiovascular: Regular rhythm and rate without murmur or S3. Abdomen: Soft. Genitourinary: Seems to have good urine output. LABORATORY DATA: White count 4770, hematocrit 35, hemoglobin 11, platelet count 113,000. Sodium 139, potassium 4.6, chloride 107, bicarb 20, BUN 8, calcium 7.9. Troponin less than 0.01. C- reactive protein was 53. Cortisol level was 16, which looks to be normal level. Vitamin B12 889. Folate looked good. ASSESSMENT AND PLAN: 1. Clostridium difficile colitis. Likely cause of diarrhea. He is on vancomycin 125 mg p.o. q.6 and we will continue this with soft diet and see how we progress. Dr. Mensah was discussing whether to do I think a flexible sigmoidoscopy and he may want to postpone that. They are asking about whether they could go home tomorrow. I will discuss with GI and see what they think. 2. History of thromboembolism, was on Xarelto. He is off the Xarelto at this time. I think he had a small pulmonary emboli. They treated him for 4 months and then stopped it. 3. Mild normocytic anemia. B12 and folate look good. 4. History of non-Hodgkin lymphoma. cc: Jose Royal MD
[2019-04-19] MEDS: CULTURELLE PO SCH ×2 (12:53→22:02)
[2019-04-20] MEDS: VANCOCIN PO SCH ×4 (01:43→21:35)
[2019-04-20] MEDS: ZANTAC PO SCH ×2 (08:30→21:35)
[2019-04-20] MEDS: FOLIC ACID PO SCH (08:30)
[2019-04-20] MEDS: CULTURELLE PO SCH ×2 (08:30→21:35)
[2019-04-20] MEDS: LIPITOR PO SCH (08:30)
[2019-04-20] MEDS: FLOMAX PO SCH (08:30)
--- NOTE | 2019-04-20 12:43 | GASTROENTEROLOGY PROGRESS NOTE ---
DATE: 04/20/2019 SUBJECTIVE: The patient is sitting up in a chair. His son is at the bedside. Patient states he does feel some better today he has had less diarrhea today, I believe so far he has had 2 to 3 loose stools. The patient is wanting to try solid foods. OBJECTIVE: Vital Signs: Temperature 99.2 degrees, pulse 69, respirations 15, blood pressure 121/65. General: Patient is awake, alert, and in no acute distress. He is sitting up on the side of the bed. LABORATORY DATA: Hematology: WBC 4.77, hemoglobin 11.6, hematocrit 35.8, MCV 97.0 and platelet 113,000. Coagulation pro time 13.8 and INR 0.99. Chemistries: Sodium 139, potassium 4.6, chloride 107, CO2 20, BUN 8, creatinine 0.8, glucose 126, calcium 7.9, and magnesium 2.1. ASSESSMENT AND PLAN: Diarrhea. Stool studies came back positive for C difficile antigen and toxin positive. The patient has been started on antibiotics. Patient had a flex sigmoidoscopy scheduled later in the week with Dr. Mensah, which will most likely be canceled. Will continue following the patient over the weekend and place a consult to Dr. Mensah on Sunday morning to picking belt operator care. Continue symptomatic treatment. We will try advancing his diet to a GI soft diet with no dairy products and see how he tolerates. Further plans to be made according to his progress. I have discussed this case with Dr. Camacho. Dictated by JAKY James for Jesus Camacho MD cc: JAKY Mccormack MD
--- NOTE | 2019-04-20 19:42 | PROGRESS NOTE ---
DATE: 04/20/2019 He has had a much better day, stools are starting to form, less nauseous, got some food down. Afebrile. OBJECTIVE: Vital Signs: Stable. Lungs: Clear all lung alvarado. Cardiovascular: Regular rhythm and rate without murmur or S3. Abdomen: Soft, nontender, nondistended. Skin: Warm and dry. ASSESSMENT/PLAN: Clostridium difficile colitis and getting p.o. vancomycin 125 mg q.6, he is doing well clinically improved. He may get to go home tomorrow. Want him to see Dr. Mensah but pleased with progress. cc: Jose Royal MD
[2019-04-21] MEDS: VANCOCIN PO SCH ×3 (01:43→15:12)
[2019-04-21] MEDS: CULTURELLE PO SCH (09:32)
[2019-04-21] MEDS: FLOMAX PO SCH (09:32)
[2019-04-21] MEDS: LIPITOR PO SCH (09:32)
[2019-04-21] MEDS: FOLIC ACID PO SCH (09:32)
[2019-04-21] MEDS: ZANTAC PO SCH (09:32)
[2019-04-21 14:50] VITALS: BP 119/63
--- NOTE | 2019-04-21 15:59 | GASTROENTEROLOGY PROGRESS NOTE ---
DATE: 04/21/2019 SUBJECTIVE: The patient was sitting up in a chair, eating lunch. He was in no acute distress. He states he is only had 1 bowel movement today. He has been following with Dr. Mensah. He actually had a colonoscopy or a flexible sigmoidoscopy scheduled for later this week. Patient was admitted to the hospital and found to have C. difficile colitis. He is currently on antibiotics. He is feeling better. OBJECTIVE: Vital Signs: Temperature 98.0 degrees, pulse 72, respirations 17, blood pressure 102/43. Generally, patient is awake and alert, no acute distress. He is sitting in a chair, eating lunch. He has tolerated his diet. He has had 1 bowel movement today so far, which has improved. LABORATORY: Hematology: WBC 4.77, hemoglobin 11.6, hematocrit 35.8, MCV 97.0, platelet 113,000. Chemistry: Sodium 139, potassium 4.6, chloride 107, CO2 of 20, BUN 8, creatinine 0.8, glucose 126. ASSESSMENT AND PLAN: 1. Diarrhea has improved. 2. Clostridium difficile colitis. Continue on antibiotics. Patient's colonoscopy he had scheduled for later in the week will most likely be canceled. Dr. Mensah be following back tomorrow. If patient is discharged before then, recommend he call Dr. Mensah's office tomorrow for further recommendations on outpatient follow-up. I have discussed this case with Dr. Camacho. We are covering for Dr. Mensah today. Dr. Mensah will follow back tomorrow if the patient is still in the hospital or follow with the patient as an outpatient. Dictated by JAKY James for Jesus Camacho MD cc: JAKY Mccormack MD
--- NOTE | 2019-04-21 18:06 | DISCHARGE SUMMARY ---
ADMISSION DATE: 04/18/2019 DISCHARGE DATE: 04/21/2019 HOSPITAL COURSE: He is a patient of Dr. Conor Jimenez, followed I think by Dr. Mensah. He has been having diarrhea, loose stools for some time, almost 4 weeks. He had been having trouble initially. He was taking Xarelto and they stopped that. He had taken it for about 4 months for pulmonary thromboemboli and it was a small one apparently, but complained of loose stools, poor appetite, nausea. PAST MEDICAL HISTORY: 1. Non-Hodgkin lymphoma 5 years ago. He has had recurrence and was treated and in remission. 2. Hypertension. 3. Hyperlipidemia. 4. History of kidney stones. Had lithotripsy for 1 stone. 5. Pulmonary thromboemboli. Was on Xarelto for 4 months. SURGICAL HISTORY: Kidney stone removed, and I think he had hernia repair. Admitted with diarrhea. DIAGNOSTIC STUDIES: Stool culture: No sign of Salmonella, Shigella, Campylobacter, or E coli . He did have a moderate amount of white blood cells. His occult blood was negative. C difficile toxin assay was positive, and we felt it was consistent with his symptoms with C. Difficile colitis. I will put him on vancomycin. He seemed to improve. Stool started to form within a couple days and felt he could go home on 04/21/2019. PLAN: We will keep him on vancomycin. We will let him go with 2 more weeks of the vancomycin. I suspect the colonoscopy that Dr. Mensah was thinking about would be canceled. DISPOSITION: He is anxious to go home so I am going to let him go home. DISCHARGE MEDICATIONS: Lipitor 10 mg a day. Folic acid 1 mg a day. Wei, I put him on 1 twice a day. Zantac 150 mg b.i.d. Flomax 0.4 mg a day. We will put him on vancomycin 125 mg p.o. q.6 h., enough for 2 more weeks. DIET: I encouraged him to eat a bland diet. cc: Jose Royal MD [facility]
== END 2019-04-21 18:19 | disposition home or self-care (01) | DRG 372 ==
LOC: ED 08:05 → 3N 11:48
PROVIDERS: ATTEND Emergency Medicine
CPT/HCPCS: 74019; 74020; 80048; 80053; 82270; 82533; 82550; 82607; 82746; 83735; 84439; 84443; 84484; 85025; 85610; 85651; 86140; 87045; 87046; 87205; 87324; 89055; 96360; 96361; 99284; A9270; J7030

== ENCOUNTER 2019-05-23 13:04 | Inpatient (IN) ==
[2019-05-23] MEDS ORDERED: NS 1,000 ML IV ONE ×3 (13:16→13:17)
[2019-05-23] MEDS ORDERED: FLAGYL 500 MG/NS 500 MG/100 ML IVPB IV ONE (13:17)
[2019-05-23] MEDS ORDERED: TYLENOL PR ONE (13:21)
[2019-05-23 13:58] LABS: INR 1.21; PROTIME 15.5 Seconds (11.0-16.0); PTT 29.6 Seconds (22.3-41.8)
[2019-05-23 14:11] LABS: BASO# 0.01 X1000 (0.0-0.2); BASO% 0.1 % (0.0-0.8); HEMATOCRIT 37.6 % (42.0-52.0); HEMOGLOBIN 12.4 g/dL (14.0-18.0); IMM GRAN# 0.03 X1000 (0.0-0.04); IMM GRAN% 0.4 % (0.0-0.5); LYMPH% 12.9 % (20.5-51.1); MCH 31.8 PG (27-31); MCV 96.4 FL (81-99); MONO# 0.08 X1000 (0.11-0.59); MONO% 0.9 % (1.7-9.3); MPV 9.9 FL (7.4-10.4); NEUT# 7.29 X1000 (1.4-6.5); NEUT% 85.7 % (42.2-75.2); PLT 80 X1000 (130-400); RDW 16.9 % (11.5-14.5); WBC 8.51 X1000 (4.8-10.8)
--- NOTE | 2019-05-23 14:16 | Diag Imaging Result Doc PS360 ---
EXAM: CHEST-1 VIEW 05/23/2019 HISTORY: SOB TECHNIQUE: AP portable upright at 1407 COMMENT: There is a granuloma in the lingula. There is platelike opacity in the right base which is probably due to fibrosis as this was also present on 11/20/2018. The inspiration is generally less optimal than on the previous study. IMPRESSION: No acute disease. Electronically signed by Tavo Esquivel 05/23/2019 2:14 PM
[2019-05-23 14:21] LABS: BLOOD TYPE ARTERIAL; HCO3-(ACT) 22.6 mmoll (20.0-26.0); PCO2(98.6) 31 mmHg (35-45); PO2(98.6) 101 mmHg (60-100); SAMPLE BLOOD; pH(98.6) 7.43 (7.35-7.45)
[2019-05-23 14:22] LABS: ALLEN TEST NO; METHB 0.9 % (0.0-1.5); MODALITY CANNULA; O2HB 95.9 % (95.0-99.0)
[2019-05-23 14:24] LABS: ALB/GLOB RATIO 1.5; ALBUMIN 3.7 g/dL (3.5-5.0); CALCIUM 9.6 mg/dL (8.8-10.2); CREATININE 1.8 mg/dL (0.7-1.2); POTASSIUM 4.9 mmol/L (3.5-5.1); TOTAL BILIRUBIN 1.81 mg/dL (0.20-1.00); TOTAL PROTEIN 6.1 g/dL (6.3-8.3)
[2019-05-23 14:25] LABS: MAGNESIUM 1.2 mg/dL (1.5-2.7)
[2019-05-23 14:30] LABS: URINE SOURCE CATH
[2019-05-23 14:45] LABS: BILIRUBIN URINE NEGATIVE (NEGATIVE); BLOOD URINE MODERATE (NEGATIVE); COLOR ORANGE; GLUCOSE URINE NEGATIVE (NEGATIVE); KETONE URINE TRACE mg/dL (NEGATIVE); LEUKOCYTES URINE LARGE (NEGATIVE); NITRITE URINE NEGATIVE (NEGATIVE); PH URINE 5.5; PROTEIN URINE 70 mg/dL (NEGATIVE); SP GRAVITY URINE 1.018; TURBIDITY URINE HAZY (CLEAR); UR EPITHELIAL CELLS <10 /HPF (<10); URINE BACTERIA NEGATIVE /HPF; URINE RBC TNTC /HPF (<10); URINE WBC TNTC /HPF (<10); UROBILINOGEN URINE NORMAL (NORMAL)
--- NOTE | 2019-05-23 14:46 | EKG Report ---
Test Performed on : 05/23/2019 2:26:33 PM Test Reason : AMS Blood Pressure : / mmHG Vent. Rate : 094 BPM Atrial Rate : 094 BPM P-R Int : 186 ms QRS Dur : 098 ms QT Int : 352 ms P-R-T Axes : 048 -46 020 degrees QTc Int : 440 ms Normal sinus rhythm. Left axis deviation Low voltage QRS Incomplete right bundle branch block Abnormal ECG When compared with ECG of 24-APR-2019 10:59, No significant change was found Unconfirmed Result
[2019-05-23] MEDS ORDERED: ROCEPHIN 2 GM in NS 50 ML IV ONE (14:48)
--- NOTE | 2019-05-23 14:53 | PROVIDER DOCUMENTATION ---
This chart was entered by Shereen Bragg Scribe, acting as scribe for Steven Medina MD. HPI-Fever - General Chief Complaint: Altered Mental Status Stated Complaint: FEVER, LOW BP Time Seen by Provider: 05/23/19 13:07 Source: family (son) Allergies/Adverse Reactions: Patient Allergies Allergy/AdvReac Type Severity Reaction Status Date / Time linezolid [From Zyvox] Allergy Intermediate leukopenia Verified 05/01/19 14:20 Home Medications: Home Medication List Medication Instructions Recorded Confirmed Last Taken Type Atorvastatin Calcium [Lipitor] 10 mg PO DAILY 02/26/14 04/24/19 04/30/19 07:00 History Amlodipine [Norvasc] 5 mg PO DAILY 11/20/18 04/24/19 04/30/19 07:00 History Tamsulosin HCl 1 cap PO DAILY 02/28/19 04/24/19 04/30/19 20:00 History Folic Acid 1 tab PO DAILY 04/18/19 04/24/19 04/30/19 07:00 History Ranitidine HCl [Zantac] 1 tab PO BID 04/18/19 04/24/19 04/30/19 20:00 History Lactobacillus Rhamnosus GG 1 ea PO BID cap 04/21/19 04/24/19 04/30/19 20:00 Rx [Culturelle] Vancomycin [Vancocin] 125 mg PO Q6HR 14 Days #56 cap 04/21/19 05/01/19 04/30/19 21:00 Rx Hydrocodone/Acetaminophen [Ronks 1 ea PO Q4H PRN #10 tab 05/01/19 Unknown Rx 7.5-325 Tablet] - History of Present Illness-Fever Nature of Presenting Problem: Patient is a 83 year old male who presents to the ED via EMS with fever and decrease in mental status. Son states symptoms started 1 hours ago. Son reports patient was diagnosed with C. Diff 2 days ago. Fever Severity/Quality: reports: greater than 102 F (105 F) Onset/Duration: reports: 1 hour ago Timing: reports: still present Severity: reports: moderate Context: reports: decreased mental status Recent Illness?: reports: C. Diff Cognitive Baseline: alert, oriented x3 Associated Symptoms: reports: denies symptoms Similar Symptoms Previously?: No Recently seen or treated by another doctor?: Yes Review of Systems - Adult - REVIEW OF SYSTEMS - ADULT ROS:: ROS per family (son) Constitutional: reports: see HPI, fever. denies: chills, fatique Eyes: reports: no symptoms reported Ears, Nose, Mouth & Throat: reports: no symptoms reported Cardiovascular: reports: no symptoms reported Respiratory: reports: no symptoms reported Gastrointestinal: reports: no symptoms reported Genitourinary: reports: no symptoms reported Musculoskeletal: reports: no symptoms reported Integumentary: reports: no symptoms reported Neurological: reports: see HPI, other (AMS - decrease in mental status). denies : dizziness/vertigo, headache/migraines, seizure, syncope Psychiatric: reports: no symptoms reported Endocrine: reports: no symptoms reported Hematologic/Lymphatic: reports: no symptoms reported Allergic/Immunologic: reports: no symptoms reported All Other Systems: Reviewed and Negative Past History - Adult - PAST MEDICAL HISTORY-ADULT Review of Records: reports: Old Records Reviewed, Nursing Assessment Review, Medications Reviewed, Social history reviewed & non-contributory. Major Childhood Illnesses: reports: denies history Cardiovascular: reports: HTN, hyperlipidemia Respiratory: reports: denies history Gastrointestinal: reports: denies history Obstetrical/Gynecological: reports: denies history Genitourinary: reports: kidney disease, kidney stones Musculoskeletal: reports: denies history Neurological: reports: denies history Psychiatric: reports: denies history Endocrine/Immune: reports: Lymphoma Other Conditions: reports: denies history - PRIOR SURGERIES/PROCEDURES Surgical/Procedure History: reports: reviewed, not pertinent, indwelling device, hernia repair, other (lithrotripsy; cystoscopy) - IMMUNIZATION STATUS Childhood Immunizations: See Nurse Assessment Flu Vaccine: See Nurse Assessment - FAMILY HISTORY Family History: reviewed, not pertinent - SOCIAL HISTORY Smoking: cigarettes (former) Living Situation: family Physical Exam-General - PHYSICAL EXAM-ADULT Initial Vital Signs Reviewed: Yes - CONSTITUTIONAL General Appearance: lethargic, other (response to painful stimuli). negative: thin - HEAD, EARS, NOSE, MOUTH & THROAT HENMT: normocephalic/atraumatic, other (dry mucous membranes). negative: angioedema - RESPIRATORY Respiratory: chest non-tender, lungs clear, normal breath sounds. negative: crackles, rhonchi - CARDIOVASCULAR Cardiovascular: normal peripheral pulses, tachycardia. negative: systolic murmur - GASTROINTESTINAL (ABDOMEN) Abdominal Exam: normal bowel sounds, non tender, soft. negative: guarding, rebound - MUSCULOSKELETAL Extremity: normal inspection. negative: deformity, erythema - SKIN Integumentary: normal color, normal turgor, warm/dry. negative: cyanosis, jaundice - NEUROLOGIC Neurologic: other (unable to assess per patient's condition) - PSYCHIATRIC Psych/Mental Status: other (unable to assess per patient's condition) Progress - PLAN OF CARE/RESULTS Progress/Plan/Lab Results: Vital Signs - 8 hr 05/23/19 13:12 Temperature 105.7 F H Pulse Rate 129 H Respiratory Rate 32 H Blood Pressure 106/53 O2 Sat by Pulse Oximetry 91 L Laboratory Results - last 24 hr 05/23/19 05/23/19 05/23/19 13:30 13:30 13:30 WBC 8.51 RBC 3.90 L Hgb 12.4 L Hct 37.6 L MCV 96.4 MCH 31.8 H MCHC 33.0 RDW Std Deviation 16.9 H Plt Count 80 L MPV 9.9 Immature Gran % (Auto) 0.4 Neut % (Auto) 85.7 H Lymph % (Auto) 12.9 L [place] % (Auto) 0.9 L Eos % (Auto) 0.0 Baso % (Auto) 0.1 Immature Gran # (Auto) 0.03 Neut # (Auto) 7.29 H Lymph # (Auto) 1.10 L [place] # (Auto) 0.08 L Eos # (Auto) 0.00 Baso # (Auto) 0.01 PT INR PTT (Actin FS) Specimen Type Sample Site pH pCO2 pO2 HCO3 Base Excess Oxyhemoglobin ABG O2 Sat (Calculated) ABG O2 Saturation ABG Carboxyhemoglobin ABG Methemoglobin Jose Test A-a O2 Difference Total Hemoglobin Lactate Liter Flow Blood Gas Modality FiO2 % Sodium 134 L Potassium 4.9 Chloride 96 L Carbon Dioxide 18 L Anion Gap 20 BUN 27 H Creatinine 1.8 H Estimated GFR/1.73 m2 36 BUN/Creatinine Ratio 15 Glucose 193 H Calculated Osmolality 279 Calcium 9.6 Magnesium 1.2 L Total Bilirubin 1.81 H AST 25 ALT 14 Alkaline Phosphatase 92 Creatine Kinase 55 Troponin T Total Protein 6.1 L Albumin 3.7 Globulin 2.4 Albumin/Globulin Ratio 1.5 Plasma Lactate 7.1 H* Urine Source Urine Color Urine Turbidity Urine pH Ur Specific [place] Urine Protein Ur Glucose (Stick) Ur Ketones (Stick) Urine Blood Urine Nitrite Urine Bilirubin Urobilinogen Dipstick Urine Leukocytes Urine WBC (Auto) Urine RBC (Auto) U Epithel Cells (Auto) Urine Bacteria (Auto) 05/23/19 05/23/19 05/23/19 13:30 13:30 13:55 WBC RBC Hgb Hct MCV MCH MCHC RDW Std Deviation Plt Count MPV Immature Gran % (Auto) Neut % (Auto) Lymph % (Auto) [place] % (Auto) Eos % (Auto) Baso % (Auto) Immature Gran # (Auto) Neut # (Auto) Lymph # (Auto) [place] # (Auto) Eos # (Auto) Baso # (Auto) PT 15.5 INR 1.21 PTT (Actin FS) 29.6 Specimen Type Sample Site pH pCO2 pO2 HCO3 Base Excess Oxyhemoglobin ABG O2 Sat (Calculated) ABG O2 Saturation ABG Carboxyhemoglobin ABG Methemoglobin Jose Test A-a O2 Difference Total Hemoglobin Lactate Liter Flow Blood Gas Modality FiO2 % Sodium Potassium Chloride Carbon Dioxide Anion Gap BUN Creatinine Estimated GFR/1.73 m2 BUN/Creatinine Ratio Glucose Calculated Osmolality Calcium Magnesium Total Bilirubin AST ALT Alkaline Phosphatase Creatine Kinase Troponin T < 0.010 Total Protein Albumin Globulin Albumin/Globulin Ratio Plasma Lactate Urine Source CATH Urine Color ORANGE Urine Turbidity HAZY Urine pH 5.5 Ur Specific [place] 1.018 Urine Protein 70 A Ur Glucose (Stick) NEGATIVE Ur Ketones (Stick) TRACE A Urine Blood MODERATE A Urine Nitrite NEGATIVE Urine Bilirubin NEGATIVE Urobilinogen Dipstick NORMAL Urine Leukocytes LARGE A Urine WBC (Auto) TNTC A Urine RBC (Auto) TNTC A U Epithel Cells (Auto) <10 Urine Bacteria (Auto) NEGATIVE 05/23/19 14:15 WBC RBC Hgb Hct MCV MCH MCHC RDW Std Deviation Plt Count MPV Immature Gran % (Auto) Neut % (Auto) Lymph % (Auto) [place] % (Auto) Eos % (Auto) Baso % (Auto) Immature Gran # (Auto) Neut # (Auto) Lymph # (Auto) [place] # (Auto) Eos # (Auto) Baso # (Auto) PT INR PTT (Actin FS) Specimen Type ARTERIAL Sample Site R BRACHIAL pH 7.43 pCO2 31 L pO2 101 H HCO3 22.6 Base Excess -3.0 Oxyhemoglobin 95.9 ABG O2 Sat (Calculated) 15.0 ABG O2 Saturation 99.0 ABG Carboxyhemoglobin 2.20 ABG Methemoglobin 0.9 Jose Test NO A-a O2 Difference 117.0 Total Hemoglobin 11.0 L Lactate 4.70 H* Liter Flow 4.0 Blood Gas Modality CANNULA FiO2 % 36.0 Sodium Potassium Chloride Carbon Dioxide Anion Gap BUN Creatinine Estimated GFR/1.73 m2 BUN/Creatinine Ratio Glucose Calculated Osmolality Calcium Magnesium Total Bilirubin AST ALT Alkaline Phosphatase Creatine Kinase Troponin T Total Protein Albumin Globulin Albumin/Globulin Ratio Plasma Lactate Urine Source Urine Color Urine Turbidity Urine pH Ur Specific [place] Urine Protein Ur Glucose (Stick) Ur Ketones (Stick) Urine Blood Urine Nitrite Urine Bilirubin Urobilinogen Dipstick Urine Leukocytes Urine WBC (Auto) Urine RBC (Auto) U Epithel Cells (Auto) Urine Bacteria (Auto) Orders Category Date Time Status Cardiac Monitoring DIRECTED Care 05/23/19 13:13 Active Perry Cath Insertion ORDERED Care 05/23/19 13:50 Active IV Insertion ORDERED Care 05/23/19 13:13 Completed Notify MD of + Sepsis Screen NOW Care 05/23/19 13:13 Active Notify Physician As Ordered Care 05/23/19 13:13 Active Nursing- Obtain EKG ONCE Care 05/23/19 13:15 Active CHEST-1 VIEW [RAD] Stat Exams 05/23/19 13:[address] ABDOMEN/PELVIS W/O CONTRAST [CT] Stat Exams 05/23/19 13:[address] HEAD W/O CONTRAST [CT] Stat Exams 05/23/19 13:15 Ordered ABG [RESP] Routine Lab 05/23/19 14:15 Completed BLOOD CULTURE [BLDCUL] Stat Lab 05/23/19 13:30 Results CBC WITH DIFF [HEME] Stat Lab 05/23/19 13:30 Results CK PROFILE [SP CHEM] Stat Lab 05/23/19 13:30 Completed COMPREHENSIVE METABOLIC PANEL [CHEM] Stat Lab 05/23/19 13:30 Completed LACTATE, PLASMA [CHEM] Q3H Lab 05/23/19 13:30 Completed LACTATE, PLASMA [CHEM] Q3H Lab 05/23/19 16:15 Uncollected LACTATE, PLASMA [CHEM] Q3H Lab 05/23/19 19:15 Uncollected MAGNESIUM [CHEM] Stat Lab 05/23/19 13:30 Completed PROTIME WITH INR [COAG] Stat Lab 05/23/19 13:30 Completed PTT [COAG] Stat Lab 05/23/19 13:30 Completed TROPONIN T Stat Lab 05/23/19 13:30 Completed URINALYSIS W/POSS RFLX CULT [URINALYSIS] Stat Lab 05/23/19 13:55 Completed 0.9% Sodium Chloride Inj [Ns] 1,000 ml Med 05/23/19 13:16 Discontinued IV 999 mls/hr 0.9% Sodium Chloride Inj [Ns] 1,000 ml Med 05/23/19 13:17 Discontinued IV 999 mls/hr 0.9% Sodium Chloride Inj [Ns] 1,000 ml Med 05/23/19 13:17 Discontinued IV 999 mls/hr Acetaminophen [Tylenol] Med 05/23/19 13:21 Discontinued 650 mg NH NOW ONE CefTRIAXONE [Rocephin] 2 gm Med 05/23/19 14:48 Active 0.9% Sodium Chloride Inj [Ns] 50 ml IV NOW Metronidazole 500 mg/Ns [Flagyl 500 mg/Ns] Med 05/23/19 13:17 Discontinued 500 mg in 100 ml IV NOW Oxygen Device Stat Oth 05/23/19 13:13 Active EKG [EKG] Stat Ther 05/23/19 13:15 Draft Result Diagrams: 05/23/19 13:30 05/23/19 13:30 - EKG 1 Time of EKG reading by physician:: 14:26 EKG Read and Signed by:: Steven Medina EKG Interpretation (*Must complete 3 of following elements*): Abnormal Rate: 94 Rhythm: normal sinus rhythm [place]: left QRS: RBB (incomplete), other (low voltage) NH Interval: normal Comments: abnormal ECG - XRAY 1 XRAY Study: Chest Impression: See EMR Report ( EXAM: CHEST-1 VIEW 05/23/2019 HISTORY: SOB TECHNIQUE: AP portable upright at 1407 COMMENT: There is a granuloma in the lingula. There is platelike opacity in the right base which is probably due to fibrosis as this was also present on 11/20/2018. The inspiration is generally less optimal than on the previous study. IMPRESSION: No acute disease. Electronically signed by Tavo Esquivel 05/23/2019 2:14 PM 05/23/19 1414 Interpreting Physician: Tavo Esquivel MD Dictated Date/Time: 05/23/19 141 cc: Steven Medina MD; Conor Jimenez MD) - CONSULTS/PCP/HOSPITALIST Notification #1 *Consult/PCP/Hospitalist*: JAKY Gomez for Hospitalist Time Discussed: 14:50 Reason/Comments: Dr. Medina consulted with Patricia about patient Consult Disposition: Will see in ED, Admit Departure - Departure Date of Disposition Decision: 05/23/19 Time of Disposition Decision: 14:51 DIAGNOSIS: Severe sepsis Disposition: ADMITTED INPATIENT 09 Certified Medical Emergency: Emergent Condition: Critical Referrals and Follow-Ups: Conor Jimenez MD [Primary Care Provider] - - Critical Care Note This patient required my direct & personal management of CC.: Yes Total Time (mins): 51 Critical Care Statement: This patient required my direct personal management to treat or rule out processes, the absence of which, could potentiallly result in sudden, clinically significant life or limb threatening deterioration. Attestation - Physician/ [place] Attestation The physician spent face to face time with patient:: Yes Advanced Practice Provider documentation review:: Supervising physician onsite and consulted in the evaluation and care of this patient. The physician did have a face to face encounter with the patient. This chart was documented by the indicated scribe, (Shereen Bragg Scribe) and accurately reflects the services I performed and decisions made by me, Steven Medina MD, as attested by the provider's signature.
[2019-05-23 15:12] LABS: LYMPHS 14 % (21-51); MONO 2 % (1-9); SEGS 84 % (42-75)
--- NOTE | 2019-05-23 16:48 | Diag Imaging Result Doc PS360 ---
EXAM: CT HEAD W/O CONTRAST 05/23/2019 HISTORY: AMS TECHNIQUE: This exam was performed using automated exposure control, adjustment of mA or kV according to patient size, and/or use of iterative reconstruction technique. COMMENT: There are calcifications in both vertebral and internal carotid arteries. There is hyperdensity in the basilar artery which is similar in appearance to the previous study of 02/03/2011. There is generalized moderate cerebral atrophy. There is some periventricular white matter lucency particularly in the frontal lobes. No evidence of bleed mass effect or abnormal extra-axial fluid collection is present. The calvarium is intact. There is an effusion in the right right mastoid air cells and multiple ethmoid air cells are opacified. IMPRESSION: Chronic ischemic microvascular changes. No evidence of acute intracranial disease. If clinically indicated further evaluation with MRI may be desirable. Electronically signed by Tavo Esquivel 05/23/2019 4:46 PM
--- NOTE | 2019-05-23 16:56 | Diag Imaging Result Doc PS360 ---
EXAM: CT ABDOMEN/PELVIS W/O CONTRAST 05/23/2019 HISTORY: FLANK PAIN TECHNIQUE: This exam was performed using automated exposure control, adjustment of mA or kV according to patient size, and/or use of iterative reconstruction technique. COMMENT: There is considerable beam hardening artifact due to the patient's arms. There is opacification of the posterior costophrenic sulcus of the right lower lobe which was also the case on 01/14/2019. The spleen has increased considerably in size, now measuring over 12 cm in AP dimension compared to less than 9.9 cm previously. There is some edema around the gallbladder. There is perinephric stranding on the left which is worse than on the previous study. There is apparent left hydronephrosis. There is a stone in the upper pole of the left kidney measuring over 5 mm. There is a 6 mm stone in the distal ureter on the left. There is a Perry catheter in the bladder. There may be blood clots within the bladder as well as some gas. There is no evidence of appendicitis or bowel obstruction. There is diverticulosis in the sigmoid and descending colon. IMPRESSION: Left hydronephrosis and nephrolithiasis with distal ureteral stone. Electronically signed by Tavo Esquivel 05/23/2019 4:53 PM
[2019-05-23] MEDS ORDERED: MOTRIN PO ONE (17:18)
[2019-05-23] MEDS ORDERED: MAGNESIUM SULFATE 2 GM/S.W.I. 2 GM/50 ML IVPB IV ONE (17:29)
[2019-05-23] MEDS ORDERED: NS 1,000 ML IV SCH (17:30)
[2019-05-23] MEDS ORDERED: SODIUM CHLORIDE 0.9% INJ SCH (17:30)
[2019-05-23] MEDS: PROTONIX IV SCH (17:49)
[2019-05-23] MEDS: OFIRMEV 1000 MG/ISOTONIC SOLN 1,000 MG/100 ML BOTTLE IV PRN (18:03)
[2019-05-23] MEDS ORDERED: XYLOCAINE-MPF 2% ONE ×3 (18:19→19:09)
[2019-05-23] MEDS ORDERED: DIPRIVAN 1% ONE ×3 (18:19→19:09)
[2019-05-23] MEDS ORDERED: PITRESSIN ONE ×3 (18:52→19:09)
[2019-05-23] MEDS ORDERED: NEO-SYNEPHRINE ONE (19:06)
[2019-05-23] MEDS ORDERED: SODIUM CHLORIDE 0.9% 10 ML ONE (19:06)
--- NOTE | 2019-05-23 19:11 | HISTORY AND PHYSICAL ---
CHIEF COMPLAINT: Altered mental status, fever. HISTORY OF PRESENT ILLNESS: This is an 83-year-old gentleman who presented to the emergency room with family members for altered mental status and fever. Family members stated that the patient had been weak over the last few days, having been diagnosed with C difficile, but during an hour or 2 prior to coming to the emergency room, he had had a big decline in his mental status and a fever. Temperature was reportedly around 102 at home. On arrival to the emergency room, he had a rectal temperature of 105.7 degrees per the nurses. He was tachycardic. The patient was unable to answer questions due to his mental status or assist in any care. He does have a history of kidney stones undergoing extracorporeal shockwave lithotripsy to his left kidney on 05/01/2019. This was an 8 to 10 mm calcification overlying the left lower pole with a 4 to 5 mm stone in the mid kidney area. He tolerated this well and was discharged home. The family members state he has not complained of any abdominal pain, any change in urination throughout this time. PAST MEDICAL HISTORY: 1. BPH with obstruction. 2. Left-sided nephrolithiasis. 3. Hypertension. 4. Hyperlipidemia. 5. Non-Hodgkin lymphoma in 2013. Per the chart in April 2019, he was in recurrence. 6. Pulmonary embolus in January 2018, and he reportedly was on 4 months of Xarelto. 7. Pulmonary embolus in November 2018. He was placed on Xarelto per the chart. PAST SURGICAL HISTORY: ESWL. SOCIAL HISTORY: He denies alcohol, tobacco, or illicit drug use. He does have family members that are close by. ALLERGIES: Linezolid, which causes leukopenia. REVIEW OF SYSTEMS: Unable to obtain from the patient due to altered mental. PHYSICAL EXAMINATION: GENERAL: This is an 83-year-old gentleman who is lying on the stretcher in the emergency room in mild distress. VITAL SIGNS: Blood pressure is 106/53 with a heart rate of 129, respirations are 26 to 28, temperature is 105 degrees, O2 saturations are 92% to 94% on 3 L nasal cannula. HEENT: Head is normocephalic, atraumatic. Mucous membranes are dry. NECK: Supple with trachea midline. CARDIOVASCULAR: Regular rate and rhythm. He is tachycardic. S1 and S2 appreciated. PULMONARY: Breath sounds are clear with no increased work of breathing noted. GASTROINTESTINAL: Abdomen is soft, nontender, nondistended with bowel sounds in all 4 quadrants. NEUROLOGIC: He is altered. He does not follow commands. He does withdraw from pain. LABORATORY DATA: WBC is 8.5 with a hemoglobin of 12.4, hematocrit 37.6, platelets of 80,000. Sodium 134, potassium 4.9, BUN 27, creatinine 1.8 with a glucose of 193, magnesium is 1.2. Lactate is 7.1. Urinalysis reveals moderate blood with too numerous to count red blood cells, white blood cells and large leukocytes. Urine culture and blood cultures are pending. IMAGING: Chest x-ray revealed no acute disease. A CT of the head revealed chronic microvascular ischemic changes. No evidence of acute intracranial disease. CT of the abdomen and pelvis revealed left hydronephrosis and nephrolithiasis with a 6 mm distal ureter stone. There may be blood clots within the bladder as well as some gas. ASSESSMENT AND PLAN: 1. Sepsis. This is presumed urosepsis. Urine culture is pending. We will continue with Rocephin and Flagyl and IV hydration. 2. 6 mm obstructing distal left ureter stone with hydronephrosis. I have spoken with Dr. Quinones, Urology. He is aware. 3. Acute kidney injury. This is very likely postobstructive. We have consulted Urology. We will continue to hydrate, and we will renal dose any medications. 4. Hypomagnesemia. We will supplement and trend labs daily. 5. Thrombocytopenia. We will hold off on any anticoagulation. We will review medications. We will call family members and check on the status of his Xarelto. 6. History of non-Hodgkin lymphoma. Per the chart, he is in remission. 7. Pulmonary embolus November 2018. 8. Hypertension. 9. Hyperlipidemia. 10. Recent diagnosis of Clostridium difficile. We will continue Flagyl 500 IV q.6. 11. Encephalopathy The patient will be admitted to ICU for close monitoring, placed on telemetry. We will continue IV hydration, use IV acetaminophen for pain for PPI. For PPI, we will use Protonix IV. Of course, we will hold off on any anticoagulation, use SCDs for DVT prophylaxis. Further treatments pending hospital course. Patient seen and examined by me face to face, all the laboratory, vitals signs and images were reviewed, patient brought to the Emergency Department due to altered menta status and sepsis, likely from UTI, he has a 6 mm stone on the left side with hydronephrosis, some electrolyte abnormality, he will be transfer to the ICU, will receive IV fluids, pressors as needed, antibiotics, Urology will be consulted, I agree with the rest of the PAINTINGS CONSERVATOR's assessment and plan, Javid Vasquez MD. This plan was discussed with Dr. Abarca. Dictated by JAKY Prasad for Javid Reinoso MD cc: JAKY Prasad MD [facility]
[2019-05-23] MEDS ORDERED: PRECEDEX ONE ×2 (19:49)
--- NOTE | 2019-05-23 20:03 | CONSULTATION ---
DATE OF CONSULTATION: 05/23/2019 CHIEF COMPLAINT: Febrile altered mental status, possible pyelonephritis. HISTORY OF PRESENT ILLNESS: Mr. Sow is an 83-year-old who presented to the Emergency Room this afternoon via EMS due to fevers and altered mental status. The patient's family states the symptoms occurred approximately 1 hour prior. The patient has been treated for clostridium difficile for several weeks now and was just restarted back on vancomycin by Dr. Mensah. The patient is significantly altered and agitated on my evaluation. The patient had a fever up to 105, that has barely responded to Tylenol and ibuprofen. The patient's temperature decreased only to 102.1 and then increased back up to 103.9. The patient remains tachycardic, hypotensive and febrile. The patient underwent left extracorporeal shockwave lithotripsy by Dr. Gonzales on 05/01/2019 for a lower pole left renal stone and was doing relatively well. However, a CT scan was performed in the emergency room today which showed an obstructing stone in the distal left ureter leading to significant hydronephrosis and a large amount of perinephric stranding. This significantly worsened from prior evaluations. The patient remains febrile with a white blood cell count 8.5. Creatinine has significantly increased to 1.8 from baseline of 0.8. The patient has a lactate up to 5.7, which is only slightly decreased from 7.1 on admission. Urinalysis shows no bacteria, but a large amount of leukocytes and blood. PAST MEDICAL HISTORY: 1. Lymphoma. 2. Hypertension. 3. Hyperlipidemia. 4. Recurrent Clostridium difficile infection. 5. Gastroesophageal reflux disease. 6. Recurrent kidney stones. 7. Pulmonary Embolus, previously on Xarelto but has been off for 6 weeks PAST SURGICAL HISTORY: 1. Hernia repair 2. Lithotripsies 3. Open right ureteral stone removal ALLERGIES: Linezolid. HOME MEDICATIONS: 1. Amlodipine 5 mg daily. 2. Atorvastatin 10 mg p.o. daily. 3. Folic acid 1 tab p.o. daily. 4. [place] q.4 hours p.r.n. 5. Culturelle 1 tab p.o. b.i.d. 6. Zantac b.i.d. 7. Flomax 0.4 mg. 8. Vancomycin 125 mg p.o. q 6h. FAMILY HISTORY: Noncontributory. REVIEW OF SYSTEMS: Unable to obtain due to the patient's altered mental status. PHYSICAL EXAMINATION: Vital Signs: Temperature 103.9 degrees, heart rate 112, blood pressure 107/48, oxygen saturation 90% on 3 L nasal cannula. General: Altered, agitated, is not oriented to person, place, time, or situation. HEENT: Normocephalic, atraumatic. Pupils equal, round, reactive to light. Cardiovascular: Tachycardic with slightly irregular rhythm. Respiratory: Good respiratory effort on nasal cannula. No increased work of breathing. Abdomen: Soft, nontender, nondistended. No palpable masses or hepatosplenomegaly. Evidence of a right flank incision with associated flank hernia. Genitourinary: No suprapubic tenderness. No CVA tenderness. Uncircumcised phallus. Bilateral testicles palpated without masses. Urethral catheter in place draining clear yellow urine. Neurologic: Gross motor and sensory intact. NEURO: The patient is not alert or oriented. LABORATORY DATA: White blood cell count 8.5, hemoglobin 12.4, hematocrit 37.6, platelets 80,000. Sodium 134, potassium 4.9, chloride 96, bicarbonate 18, BUN 27, creatinine 1.8, glucose 193, magnesium 1.2, bilirubin 1.81. Lactate was 7.1 on admission and 5.7 on repeat. Urinalysis shows moderate blood and a large amount of leukocytes. CT scan imaging was reviewed which showed a small stone within the left kidney as well as an 6 mm obstructing left ureteral stone causing moderate hydronephrosis with significant stranding and perinephric edema. ASSESSMENT/PLAN: Mr. Sow is an 83-year-old who presented to the emergency room due to the flank pain as well as altered mental status and fevers, patient was found to have a significant elevated fever and has been persistently tachycardic and hypotensive. Concern arises that the patient is septic from obstructing renal stone. CT scan reviewed and showed a 6 mm stone present in the distal ureter leading to significant hydronephrosis and perirenal edema. The patient's UA showed no evidence of any infection, but it does have a significant amount of blood and leukocytes. In talking with family, I recommended proceeding with cystoscopy and left ureteral stent placement. This was discussed at length and all his children, who were in agreement. Discussed risks of bleeding, worsening infection, damage to surrounding structures, and potential from his clinical condition. We will plan to proceed with this emergently for decompression of the collecting system. We will likely planned for a secondary procedure to remove the stone once the patient clinically improves. cc: Kane Quinones MD MTDD
[2019-05-23] MEDS: LEVOPHED 8 MG in D5 1/2 NS 250 ML IV SCH (20:41)
[2019-05-23] MEDS: FLAGYL 500 MG/NS 500 MG/100 ML IVPB IV SCH (21:13)
[2019-05-23] MEDS: LEVAQUIN 500 MG/D5W 500 MG/100 ML IVPB IV SCH (21:13)
--- NOTE | 2019-05-23 22:41 | OPERATIVE NOTE ---
PROCEDURE DATE: 05/23/2019 PREOPERATIVE DIAGNOSES: 1. Left ureteral stone. 2. Left Hydronephrosis. 3. Possible sepsis of urinary origin. POSTOPERATIVE DIAGNOSES: 1. Left ureteral stone. 2. Left Hydronephrosis. 3. Possible sepsis of urinary origin. PROCEDURE PERFORMED: 1. Cystoscopy. 2. Left ureteroscopy with laser lithotripsy 3. Stone basket extraction. 4. Left ureteral stent placement. 5. Cystogram. SURGEON: Kane Quinones MD TRUCK SPOTTER: None. COMPLICATIONS: Postoperative hematuria. SPECIMEN: Left ureteral stone. DRAINS: 1. A 6 x 24 cm left ureteral stent. 2. A 22-English 3-way catheter. ANESTHESIA: LMA. OPERATIVE FINDINGS: The patient had a normal urethra. No evidence of stricture disease or papillary lesions. The patient's prostate was small. The entirety of the bladder was inspected with a 30-degree lens, which showed no obvious papillary lesions, diverticulum or cellules. No bladder stones were seen. Both ureteral orifices were visualized, with minimal drainage from the left side. A wire was placed into the left ureteral orifice, but it was difficult to place past the stone and felt like it was very tight, and barely passed through. Decision was made to perform ureteroscopy to break up the stone, to allow easier passage of the stent. This was fragmented and removed. Stent was then placed, with coil seen within the kidney and endoscopically visualized within the bladder. Slight curve to the stent was seen, likely due to redundancy of the stent within the kidney. Following stent there was a moderate amount of bleeding seen, likely from the prostate, that cleared with placement of indwelling catheter. Patient was started on continuous bladder irrigation. INDICATIONS FOR PROCEDURE: Mr. Sow is an 83-year-old who underwent left extracorporeal shockwave lithotripsy by Dr. Gonzales on 05/01/2019. The patient seemingly had an uneventful postoperative course; however, the patient became febrile at home and was found to be 105 degrees in the emergency department, tachycardic to 120 bpm and had an elevated lactate to 7 this afternoon. Patient had altered mental status at home. In the ED, a CT scan was obtained which showed a significant amount of left hydronephrosis, with perirenal stranding and an obstructing left ureteral stone. Due to this patient's worsening creatinine at 1.8 and symptoms of sepsis, it was recommended to proceed with cystoscopy, left ureteroscopy versus placement of indwelling ureteral stent. Risks, benefits and alternatives were discussed with the patient and his family; however, the patient was altered and confused, and unable to consent. Family consented for him due to his altered status. DESCRIPTION OF PROCEDURE: After informed consent was obtained from the family, the patient was taken to the operating room and placed on the operating table in supine position. He received preoperative antibiotics and underwent LMA placement. The patient was then placed into a dorsal lithotomy position. He was prepped and draped in the usual sterile fashion. A preoperative time- out was performed, with all parties in agreement including anesthesia, surgical and nursing staff. At this point I inserted a 21-English cystourethroscope through the urethra and into the bladder. The patient's urethra was normal. No evidence of stricture disease or papillary lesions. The patient's prostate was small, with minimal obstruction and a slightly high bladder neck. I was able to ultimately enter into the bladder. The entirety of the bladder was inspected. The left ureteral orifice was slightly posterior and difficult to completely visualize. Minimal efflux was seen. The right side had a large amount of efflux and drainage of clear urine. No papillary lesions, diverticulum, cellules or trabeculations were seen within the bladder. Open-ended catheter was then passed through the scope, then ZIPwire was easily passed through the left ureteral orifice and hit the stone. It was slightly difficult to maneuver around the stone, and the open-ended catheter was advanced to assist in this. It appeared to be quite tight. The decision was made to try to break up the stone and remove the pieces to allow easier placement of the stent, due to the tightness of the ureter at the location of the stone. The wire was left in place. The bladder was drained, and a semirigid ureteroscope was advanced through the urethra and into the bladder. This passed easily up into the left ureteral orifice to the side of the stone. The stone was quite impacted. I was able to rapidly fragment the stone into several small pieces. These were extracted with a Moise basket and dropped in the bladder for later retrieval. Minimal irrigation was undertaken due to concern over infection. Stone fragments were completely removed. The ureteroscope was able to be advanced into the midureter, with no residual stone fragments. A 6 x 24 stent was backloaded over the wire and passed with ease up to the kidney, and a coil was seen within the kidney itself; however, the stent appeared to be slightly curved on itself, but a good coil was seen endoscopically within the bladder. Following this, a moderate amount of bleeding was seen, which seemed to be coming from the prostate itself. The bladder was irrigated multiple times, and this seemed to clear rapidly. No obvious bleeding was coming from the ureteral orifice or the around the stent. I decided to preform a cystogram to ensure no bladder or urethral injury. At which point 60 mL of Omnipaque was instilled into the bladder and no evidence of intraperitoneal damage was seen and good drainage was visualized after drainage from the scope with no retained contrast. The decision was made to place a 22 F 3-way catheter. I inflated the balloon with 20 mL sterile water and started on a slow drip with continuous bladder irrigation to ensure adequate drainage and no clotting of the catheter. At this point the patient's catheter was placed to gravity drainage with slow drip of irrigant. Irrigant was light pink to clear. The patient was then awoken and was taken to the recovery area, to be later transferred to the ICU. The patient's blood pressure and heart rate were monitored throughout by Anesthesia, and the patient seemed to respond well to Anesthesia postoperatively in the recovery area. The patient will need close monitoring, as he had significant sepsis on presentation. cc: MD JACK Ellison
[2019-05-23 23:11] LABS: BASO# 0.07 X1000 (0.0-0.2); BASO% 0.3 % (0.0-0.8); HEMATOCRIT 33.4 % (42.0-52.0); HEMOGLOBIN 10.8 g/dL (14.0-18.0); IMM GRAN# 0.34 X1000 (0.0-0.04); IMM GRAN% 1.4 % (0.0-0.5); LYMPH# 0.56 X1000 (1.2-3.4); LYMPH% 2.2 % (20.5-51.1); MCHC 32.3 g/dL (33-37); MCV 98.8 FL (81-99); MONO# 1.18 X1000 (0.11-0.59); MONO% 4.7 % (1.7-9.3); MPV 10.4 FL (7.4-10.4); NEUT# 23.02 X1000 (1.4-6.5); NEUT% 91.4 % (42.2-75.2); PLT 67 X1000 (130-400); RBC 3.38 XMIL (4.7-6.1); RDW 17.4 % (11.5-14.5); WBC 25.17 X1000 (4.8-10.8)
[2019-05-23] MEDS ORDERED: NS 500 ML IV ONE (23:23)
[2019-05-23] MEDS ORDERED: NEO-SYNEPHRINE 50 MG in NS 250 ML IV SCH (23:30)
[2019-05-23] MEDS: NS 1,000 ML IV SCH (23:51)
[2019-05-24] MEDS: MORPHINE IV PRN ×5 (01:35→15:40)
[2019-05-24] MEDS: FLAGYL 500 MG/NS 500 MG/100 ML IVPB IV SCH (01:36)
[2019-05-24] MEDS: LEVOPHED 8 MG in D5 1/2 NS 250 ML IV SCH ×3 (02:55→15:39)
[2019-05-24 07:10] LABS: BASO# 0.04 X1000 (0.0-0.2); BASO% 0.2 % (0.0-0.8); HEMOGLOBIN 8.6 g/dL (14.0-18.0); IMM GRAN# 0.49 X1000 (0.0-0.04); IMM GRAN% 2.2 % (0.0-0.5); LYMPH# 0.49 X1000 (1.2-3.4); LYMPH% 2.2 % (20.5-51.1); MCH 31.5 PG (27-31); MCHC 31.9 g/dL (33-37); MCV 98.9 FL (81-99); MONO# 0.83 X1000 (0.11-0.59); MONO% 3.7 % (1.7-9.3); MPV 11.2 FL (7.4-10.4); NEUT# 20.38 X1000 (1.4-6.5); NEUT% 91.7 % (42.2-75.2); PLT 45 X1000 (130-400); RBC 2.73 XMIL (4.7-6.1); RDW 17.6 % (11.5-14.5); WBC 22.23 X1000 (4.8-10.8)
[2019-05-24] MEDS: NS 1,000 ML IV SCH ×2 (07:59→17:35)
--- NOTE | 2019-05-24 08:28 | PROGRESS NOTE ---
DATE: 05/24/2019 SUBJECTIVE: Postop day 1 from cystoscopy, left ureteroscopy, lithotripsy, stone basket extraction, left ureteral stent placement due to septic stone. The patient had significant low blood pressures postoperatively and was started on Levophed. This slowly increased overnight. However, his blood pressures are much better this morning. Most recently, 127/95, but he is on max Levophed. Heart rates are in the 70s and 80s. The patient is much more lucid, carried out a long conversation this morning. The patient does complain of some lower abdominal pain overlying the bladder. The patient's urethral catheter is in place draining a large amount of clear yellow urine with no evidence of clots. OBJECTIVE: Vital signs: Temperature 96.9 degrees, heart rate 79, blood pressure 127/87, oxygen saturation 97% on 2 L nasal cannula. General: No acute distress. Alert and oriented x3. Abdomen: Soft, nontender, nondistended. Respiratory: Good respiratory effort without audible wheezing or rales. : Mild suprapubic tenderness. No CVA tenderness. Urethral catheter in place draining clear yellow urine. Musculoskeletal: Moving all extremities. No longer in restraints. LABS: White blood cell count 22.2, hemoglobin 8.6, hematocrit 27.0, platelets 45,000. Creatinine 1.8 and Lactate 5. ASSESSMENT AND PLAN: Mr. Sow is an 83-year-old with lymphoma, hypertension, hyperlipidemia, history of Clostridium difficile infection, gastroesophageal reflux disease, recurrent kidney stones, who presents postoperatively after treatment of a left distal ureteral stone. The patient had significant hypotension yesterday postoperatively, which has improved on Levophed. The patient is afebrile and no longer tachycardic. The patient's sensorium is much improved. I think patient is clinically improving but will have a long recovery course. The patient is complaining of some lower pelvic pain, likely related to spasms of the bladder from the stent versus the catheter. The patient's lactate and creatinine are minimal changed this morning. His hematocrit has also decreased that is likely closer to his true baseline. He received a large amount of fluid that he received yesterday, but his platelets have continued to downtrend, current at 45,000, hemoglobin 8.6 and hematocrit 27. I think this is likely dilutional. However, we will continue to monitor, but the patient is no longer tachycardic and his blood pressures are improving. The patient did have some hematuria during the procedure after placement of the stent, but this urine currently is crystal clear with no evidence of any clots. We will continue to monitor from a urologic standpoint. We plan to keep indwelling catheter in until at least tomorrow, could attempt a voiding trial at that time. cc: Kane Quinones MD MTDLeslie
[2019-05-24 08:37] LABS: CREATININE 1.8 mg/dL (0.7-1.2); POTASSIUM 4.6 mmol/L (3.5-5.1); TOTAL BILIRUBIN 1.29 mg/dL (0.20-1.00); TOTAL PROTEIN 5.5 g/dL (6.3-8.3)
[2019-05-24 08:38] LABS: ALB/GLOB RATIO 1.2
--- NOTE | 2019-05-24 08:50 | PROGRESS NOTE ---
DATE: 05/24/2019 SUBJECTIVE: The patient is resting comfortably in bed. At this moment, he is not complaining of pain. He is making good urine, for the last 8 hours his urine output has been a little bit more than 900 mL. He had a procedure done by Urology Department. He has been placed on pressors due to low blood pressure. This patient is septic. Hemoglobin dropped from 10.8 to 8.6, I will monitor this closely. I will repeat new lab work in the afternoon. OBJECTIVE: Vital Signs: Temperature 96.9, pulse 79, respiratory rate 22, blood pressure 103/55, oxygen saturation 94 on nasal cannula. HEENT: Head normocephalic. No trauma. PERRLA. Neck: Supple. No JVD. No masses. Central trachea. Chest: Clear to auscultation. No wheezing. Some crepitus at the bases. Abdomen: Soft, nontender, nondistended. No hepatosplenomegaly. Extremities: No edema, no clubbing, no cyanosis. Neurological examination: The patient today is alert. He is oriented x2. He knows he is in the hospital but he believes he is in the emergency room. He is not oriented to time. He moves all 4 extremities spontaneously and he is following commands. Genitourinary, he has a Perry catheter placed. LABORATORY: WBC 22.2, hemoglobin 8.6, hematocrit 27, platelet 45. Pending CMP. ASSESSMENT AND PLAN: 1. Septic shock, due to urinary tract infection. He had a right ureteral stone with hydronephrosis, which has been removed yesterday through a cystoscopic exam, left ureteroscopy with lasertripsy and stone basket extraction, left ureteral stent placement, and cystogram, postoperative day number 1. Urology Department following this patient closely. We will monitor. Continue with pressors for now and IV fluids. 2. Right ureteral stone with right hydronephrosis status post cystoscopic exam with left ureteroscopy with lasertripsy and stone basket extraction, left ureteral stent placement and cystogram, postoperative number 1. Urology Department on board. 3. Acute kidney injury likely postobstructive. He is making good urine. His baseline creatinine is around 1 to 1.3 and yesterday was 1.8. Pending CMP. 4. Hypomagnesemia, has been replaced. 5. Thrombocytopenia. We are not going to use any kind of anticoagulation on this patient. 6. History of non-Hodgkin's lymphoma. Per the chart, he is in remission. 7. History of pulmonary embolism in November 2018. Aware. 8. Hypertension, history of, actually he has been hypotensive due to sepsis, septic shock. 9. Hyperlipidemia. Aware. 10.Recent diagnosis of Clostridium difficile, which apparently has been treated. We repeated a new Clostridium difficile toxin and antigen and it has been negative, so I will stop the Flagyl, and I will repeat the Clostridium difficile toxin and antigen again to play safe. 11.Anemia. We will monitor this patient closely. Hemoglobin dropped from 10.8 to 8.6. I will recheck the hemoglobin in the afternoon. CRITICAL CARE TIME: 35 minutes. cc: Javid Reinoso MD MTDD
[2019-05-24 16:29] LABS: BASO# 0.04 X1000 (0.0-0.2); BASO% 0.2 % (0.0-0.8); EOS# 0.02 X1000 (0.0-0.7); EOS% 0.1 % (0.0-10.0); HEMATOCRIT 34.8 % (42.0-52.0); HEMOGLOBIN 11.4 g/dL (14.0-18.0); IMM GRAN# 0.44 X1000 (0.0-0.04); IMM GRAN% 2.6 % (0.0-0.5); LYMPH# 0.58 X1000 (1.2-3.4); LYMPH% 3.4 % (20.5-51.1); MCH 32.8 PG (27-31); MCHC 32.8 g/dL (33-37); MONO# 0.71 X1000 (0.11-0.59); MONO% 4.2 % (1.7-9.3); MPV 10.3 FL (7.4-10.4); NEUT# 15.25 X1000 (1.4-6.5); NEUT% 89.5 % (42.2-75.2); PLT 40 X1000 (130-400); RBC 3.48 XMIL (4.7-6.1); RDW 17.9 % (11.5-14.5); WBC 17.04 X1000 (4.8-10.8)
[2019-05-24 16:43] LABS: CALCIUM 7.7 mg/dL (8.8-10.2); CREATININE 1.6 mg/dL (0.7-1.2); POTASSIUM 4.1 mmol/L (3.5-5.1)
[2019-05-24] MEDS ORDERED: ROCEPHIN 1 GM in NS 50 ML IV SCH (17:00)
[2019-05-24 17:05] LABS: BANDS 11 % (0-1); LARGE PLATELETS OCCASIONAL; LYMPHS 2 % (21-51); MONO 2 % (1-9); SEGS 84 % (42-75)
[2019-05-24 17:06] LABS: ANISOCYTOSIS 1+; BURR CELLS RARE
[2019-05-24] MEDS: LEVAQUIN 500 MG/D5W 500 MG/100 ML IVPB IV SCH (17:59)
[2019-05-24] MEDS: PROTONIX IV SCH (17:59)
[2019-05-24] MEDS: OFIRMEV 1000 MG/ISOTONIC SOLN 1,000 MG/100 ML BOTTLE IV PRN (17:59)
[2019-05-24] MEDS: NORCO-7.5 PO PRN (20:51)
[2019-05-25] MEDS: NORCO-7.5 PO PRN ×4 (04:06→17:20)
[2019-05-25 05:25] LABS: BASO# 0.02 X1000 (0.0-0.2); BASO% 0.2 % (0.0-0.8); EOS# 0.06 X1000 (0.0-0.7); EOS% 0.7 % (0.0-10.0); HEMATOCRIT 30.3 % (42.0-52.0); HEMOGLOBIN 9.9 g/dL (14.0-18.0); IMM GRAN# 0.56 X1000 (0.0-0.04); IMM GRAN% 6.7 % (0.0-0.5); LYMPH# 0.32 X1000 (1.2-3.4); LYMPH% 3.8 % (20.5-51.1); MCH 31.7 PG (27-31); MCHC 32.7 g/dL (33-37); MCV 97.1 FL (81-99); MONO# 0.32 X1000 (0.11-0.59); MONO% 3.8 % (1.7-9.3); MPV 10.8 FL (7.4-10.4); NEUT# 7.07 X1000 (1.4-6.5); NEUT% 84.8 % (42.2-75.2); PLT 32 X1000 (130-400); RBC 3.12 XMIL (4.7-6.1); RDW 17.8 % (11.5-14.5); WBC 8.35 X1000 (4.8-10.8)
[2019-05-25 05:57] LABS: CALCIUM 7.8 mg/dL (8.8-10.2); POTASSIUM 4.5 mmol/L (3.5-5.1)
[2019-05-25] MEDS: NS 1,000 ML IV SCH ×2 (07:18→16:10)
--- NOTE | 2019-05-25 08:12 | PROGRESS NOTE ---
DATE: 05/25/2019 SUBJECTIVE: The patient was resting comfortably in bed, and actually apparently he slept during the night. At this moment, he is fully awake. He is oriented. He is following commands. He is not complaining of chest pain or shortness of breath. His platelet count is still dropping, probably due to the septic shock, urinary tract infection, and bacteremia. I had a conversation with the son about this patient. He is DO NOT RESUSCITATE level 1. I answered all of his questions. OBJECTIVE: Vital Signs: Temperature at 4 a.m. was 100.2, pulse 83, respiratory rate 16, blood pressure 107/62, oxygen saturation 93 on 2 L of nasal cannula. HEENT: Head normocephalic. No trauma. PERRLA. Neck: Supple. No JVD. No masses. Central trachea. Chest: Clear to auscultation. Some faint and expiratory wheezing. Some crepitus at the bases. Abdomen: Soft, nontender, nondistended. No hepatosplenomegaly. Extremities: No edema, no clubbing, no cyanosis. Neurological: This patient is alert. He is oriented x2. He is not oriented to time. He moves all 4 extremities spontaneously. He is following commands. Genitourinary: He has a Perry catheter placed. No signs of gross hematuria. LABORATORY DATA: WBC 8.3, hemoglobin 9.9, hematocrit 30.3, platelets 32,000. Sodium 144, potassium 4.5, chloride 117, bicarbonate 17, BUN 31, creatinine 2, glucose 98, calcium 7.8. ASSESSMENT AND PLAN: 1. Septic shock due to urinary tract infection. Also, we have a positive blood culture that showed gram-negative rods. Urine culture showed Morganella morganii, which is sensitive to ceftriaxone. I will continue with the same management. The pressors have been stopped since yesterday night around 10 p.m., and the blood pressure has been mostly in the 90s to 110. Infectious Disease Department has been consulted. 2. Right ureteral stone with right hydronephrosis, status post cystoscopic exam with left ureteroscopy with laser lithotripsy and stone basket extraction, left ureteral stent placement and cystogram, postoperative day #1. Urology Department on board. He is making urine. I do not see any gross hematuria. 3. Acute kidney injury, probably postobstructive. Creatinine is getting a little bit worse, but he is making good urine. His baseline is around 1 to 1.3. I will continue with intravenous fluids. Blood pressure seems to be more stable. This acute kidney injury could be multifactorial due to septic shock and kidney stone. 4. Hypomagnesemia. This has been replaced. I will get a new magnesium level in the morning. 5. Thrombocytopenia. We are not using any kind of anticoagulation on this patient. The platelet count is still dropping. I have consulted Hematology/Oncology Department to evaluate this patient. Likely, this is secondary to sepsis/septic shock. 6. History of non-Hodgkin lymphoma, apparently in remission. 7. History of pulmonary embolism in 11/2018. Aware. 8. Hypertension. Actually, this patient has been having hypotension and septic shock. 9. Hyperlipidemia. Aware. 10. Gastroesophageal reflux disease. Continue with proton pump inhibitors. 11. Recent diagnosis of Clostridium difficile, which apparently has been treated. We repeated a new Clostridium difficile toxin and antigen, and both of them have been negative. He is not having diarrhea. As per the son, last week at the home appliance technician's office, they did a new Clostridium difficile exam, and it was positive, and he was placed back on treatment. I will discuss this with the Infectious Disease Department doctor, and I will try to get some records from that office, but at this moment, I got both results negative and no diarrhea. 12. Anemia. Will monitor this patient closely. Stable. 13. This patient is DO NOT RESUSCITATE level 1. I will continue to monitor this patient in the intensive care unit. CRITICAL CARE TIME: 35 minutes. cc: Javid Reinoso MD
[2019-05-25] MEDS: CULTURELLE PO SCH ×2 (08:14→20:11)
--- NOTE | 2019-05-25 14:16 | PROGRESS NOTE ---
DATE: 05/25/2019 SUBJECTIVE: No acute events overnight. The patient seemingly slept comfortably. He denies any abdominal pain this morning. His urethral catheter has been draining clear yellow urine. The patient is tolerating a diet. Remains afebrile. Patient is currently off Levophed with blood pressures in the low 100s. The patient has no evidence of tachycardia. Urine output was 1975cc yesterday. OBJECTIVE: Vital Signs: Temperature 98.2, heart rate 88, blood pressure 95/63, oxygen saturation 96% on room air. General: The patient is in no acute distress. Resting comfortably in bed. Alert and oriented x3. Respiratory: Good respiratory effort without audible wheezing or rales. Abdomen: Soft, nontender, nondistended. No palpable masses or hepatosplenomegaly. : No suprapubic tenderness. No CVA tenderness. Urethral catheter in place draining clear yellow urine. LABORATORY DATA: White blood cell count 8.4, hemoglobin 9.9, hematocrit 30.3, platelets 32,000. Sodium 144, potassium 4.5, chloride 117, bicarb 17, BUN 31, creatinine 2, glucose 98. MICROBIOLOGY DATA: Urine culture growing Morganella morganii sensitive to amikacin, cefepime, ceftazidime, Rocephin, gentamicin, Levaquin, tobramycin, Bactrim, and Zosyn. Patient also has positive blood cultures with gram-negative rods. ASSESSMENT AND PLAN: Ms. Sow is an 83-year-old with history of lymphoma, hypertension, hyperlipidemia, history of clostridium difficile infection, gastroesophageal reflux disease, and recurrent kidney stones who presents postoperatively after treatment of left distal ureteral stone with cystoscopy, left ureteroscopy, lithotripsy, stone basket extraction, and left ureteral stent placement on 05/23/2019. The patient was on Levophed until this morning. This has been subsequently weaned off. The patient is not on any blood pressure support at this time. The patient's blood pressure is in the low 100s to high 90s. The patient is making good urinary output. Remains afebrile and non-tachycardic. The patient's platelets have decreased to 32, and creatinine today is 2 from 1.8 yesterday morning. The patient is make good urinary output with clear yellow urine. We will continue to monitor at this time. The patient, I think, was on Levophed which could be leading to some of renal insufficiency as well as recent sepsis. We will monitor now that he is off. The patient is being seen by Hematology/Oncology due to low platelets. From a urologic standpoint, we will keep indwelling catheter in now for strict I's and O's and optimize his renal function. We will continue to monitor from a urologic standpoint. Please call with questions or concerns. cc: Kane Quinones MD MTDLeslie
--- NOTE | 2019-05-25 14:20 | HEMO/ONC CONSULTATION ---
DATE: 05/25/2019 CHIEF COMPLAINT: Altered mental status and fever. HISTORY OF PRESENT ILLNESS: Mr. Sow is an 83-year-old gentleman who presented to the emergency room per family members with altered mental status and fever. Family states he had been very weak over the last few days. He has recently had a diagnosis of C. difficile which was supposedly resolved. On arrival to the emergency room, he had a rectal temperature of 105.7 degrees. He was tachycardic and was unable to answer questions due to his mental status. The patient has a history of kidney stones, most recently getting a lithotripsy on 05/01/2019. He recently had a pulmonary embolism in November of this year. He completed his treatment with Xarelto at the end of March 2019. 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 His latest PET scan shows no evidence of lymphadenopathy. He is currently not receiving treatment at this time. However, it was noted at the beginning of March that he had iron deficiency anemia. He is status post 2 IV iron infusions at the end of March. PAST MEDICAL HISTORY: Relapsed non-Hodgkin's lymphoma stage IV, hypertension, hyperlipidemia, kidney stones, BPH with obstruction, left-sided nephrolithiasis, pulmonary embolism in January 2018 and November 2018. PAST SURGICAL HISTORY: ESWL, hernia repair. SOCIAL HISTORY: Denies tobacco or illicit drug use. Denies alcohol. ALLERGIES: Linezolid. REVIEW OF SYSTEMS: Reveal lower abdominal pain. HOME MEDICATIONS: Atorvastatin, amlodipine, vitamin B12. VITAL SIGNS: Temperature 98.2 degrees, pulse rate 88, respiratory rate 19, blood pressure 95/63, O2 saturation 96%. He has 8/10 lower abdominal pain. PHYSICAL EXAMINATION: General: This is a chronically ill-appearing, elderly gentleman in no acute distress. HEENT: Sclerae are anicteric. PERRLA. Respiratory: Chest is clear to auscultation. No signs of respiratory distress. Cardiovascular: Normal S1, S2. Abdomen: Soft, nondistended. Lower abdominal tender to palpation. Extremities: No edema noted. Neurological: Awake, alert, and oriented. Able to follow commands. LABORATORY: WBCs 8.35, hemoglobin 9.9, hematocrit 30.3, platelet count 32,000, ANC 7.07. Creatinine 2.0, calcium 7.8. ASSESSMENT AND PLAN: 1. Relapsed follicular non-Hodgkin's lymphoma. 2. Septic shock due to urinary tract infection. 3. Right ureteral stone with right hydronephrosis. 4. Acute kidney injury. 5. Thrombocytopenia. PLAN: The patient has had a past history of Clostridium difficile. It appears he was tested this admission and so far has been negative. He has had a ureteral stent placed and has the insertion of a Perry catheter. The patient complains of pain to his lower abdomen and genital area. He is otherwise not hurting. We will continue to monitor and evaluate, and plan accordingly. Dictated by JAKY Fine for Jacinto Mackey MD Patient seen and examined. Patient known to us for relapsed follicular non- Hodgkins lymphoma. His last treatment was in 08/2018. He has been without evidence of disease since then. His most recent PET scan was on 03/20/2019. He was admitted with change in mental status. He was noted to have septic shock due to urinary tract infection from Morganella. Dr. Qureshi is on board and antibiotics have been adjusted. He has a right ureteral stone and right hydronephrosis and Dr. Quinones is following him along. On admission patient was noted to be thrombocytopenic. During his last visit in the clinic his platelets were completely normal. This is most likely related to sepsis and associated peripheral destruction. Check DIC profile, B12 and folate levels and a reticulocyte count. Transfuse for platelet count less than 20,000 or bleeding. We will continue to monitor with you. Jacinto Mackey M.D. cc: Jacinto Mackey MD [facility]
[2019-05-25] MEDS: MAXIPIME 1 GM in NS 50 ML IV SCH (16:10)
[2019-05-25] MEDS: MYCOSTATIN SUSP PO SCH ×2 (16:12→20:12)
--- NOTE | 2019-05-25 16:47 | INFECTIOUS DISEASE CONSULT REP ---
DATE: 05/25/2019 CONCLUSION: The patient has a Morganella urinary tract infection. He also has a gram-negative lurdes bacteremia which almost certainly will be identified as Morganella as well. He is predisposed to this because he has nephrolithiasis and specifically it involved his left ureter. Also, I think he is beginning to develop oral candidiasis. He has also had 2 episodes of Clostridium difficile diarrhea. 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 RECOMMENDATION: I have switched the patient from ceftriaxone to cefepime. I have modified the dose of cefepime because of the patient's renal failure. I have ordered the patient to start getting nystatin swish and swallow for what appears to me to be oral candidiasis and finally, I have restarted vancomycin p.o. because the patient has had 2 episodes of Clostridium difficile diarrhea and with the last episode the patient had not completed his oral vancomycin treatment. I have ordered immunoglobulin levels. DISCUSSION: The patient was admitted the hospital with high fever and delirium. He was found to have on CT scan a left hydro nephrolithiasis in the distal ureter. The patient has had a stent placed. The patient's chest x-ray shows no acute disease. Liver function studies are normal. The patient's CBC earlier showed a white count of 25,000 today it is 8350, hemoglobin 9.9, and platelet count 32,000. The creatinine is 2. GFR is 32. Chest x-ray shows no acute disease. PAST MEDICAL HISTORY/REVIEW OF SYSTEMS: I was unable to get a review of systems from the patient at this time. MEDICAL DISEASES: 1. Positive for benign prostatic hypertrophy with obstruction. 2. Left-sided nephrolithiasis. 3. Hypertension. 4. Hyperlipidemia. 5. Non-Hodgkin lymphoma. 6. Pulmonary embolus. PAST SURGICAL HISTORY: Positive for lithotripsy. SOCIAL HISTORY: The patient is . He does not drink alcoholic beverages, smoke cigarettes or abuse drugs. The patient does not have any pets at home. HOME MEDICATIONS: Include Norvasc, Lipitor, hydrocodone, Culturelle, Zantac, tamsulosin and vancomycin p.o. PHYSICAL EXAMINATION: Earlier today the patient's temperature was 100.2 degrees, now it is 98.8, pulse 84, respirations 15, blood pressure is 109/66. The patient is 6 feet tall, weighs 190 pounds.General: Is an ill-appearing elderly male. He is in no acute distress. Head/eyes/ears/nose/throat: He can hear my spoken words and see near objects. He has a white coating on his tongue. Neck: No meningismus. Lungs: Clear to auscultation. Cardiovascular: Heart rate is regular. Abdomen: Abdomen and flanks soft and nontender. Neurologic: The patient is awake. He can move his extremities. There is no tremor. His memory as regarding his current illness is diminished because he was so sick. Thank you for the consult. cc: Frandy Qureshi MD
[2019-05-25] MEDS: VANCOCIN PO SCH ×2 (17:21→23:53)
[2019-05-25] MEDS: PROTONIX IV SCH (17:21)
[2019-05-25 18:51] LABS: MPV 11.2 FL (7.4-10.4)
[2019-05-25 22:12] LABS: RETIC% 1.59 % (0.8-2.1); RETIC-HE 27.6 PG (28.2-36.6)
[2019-05-26] MEDS: NS 1,000 ML IV SCH (02:34)
[2019-05-26] MEDS: MAXIPIME 1 GM in NS 50 ML IV SCH ×2 (02:34→15:18)
[2019-05-26] MEDS: MORPHINE IV PRN (03:08)
[2019-05-26 05:28] LABS: PHOSPHORUS 2.7 mg/dL (2.7-4.5)
[2019-05-26 05:31] LABS: ALBUMIN 2.4 g/dL (3.5-5.0); CALCIUM 7.9 mg/dL (8.8-10.2); POTASSIUM 4.8 mmol/L (3.5-5.1); TOTAL BILIRUBIN 0.62 mg/dL (0.20-1.00); TOTAL PROTEIN 4.9 g/dL (6.3-8.3)
[2019-05-26] MEDS: VANCOCIN PO SCH ×4 (06:25→23:33)
[2019-05-26 06:31] LABS: BASO# 0.02 X1000 (0.0-0.2); BASO% 0.3 % (0.0-0.8); EOS# 0.03 X1000 (0.0-0.7); EOS% 0.5 % (0.0-10.0); HEMATOCRIT 29.6 % (42.0-52.0); HEMOGLOBIN 9.5 g/dL (14.0-18.0); IMM GRAN# 0.02 X1000 (0.0-0.04); IMM GRAN% 0.3 % (0.0-0.5); LYMPH% 7.6 % (20.5-51.1); MCH 31.5 PG (27-31); MCHC 32.1 g/dL (33-37); MONO# 0.35 X1000 (0.11-0.59); MONO% 5.3 % (1.7-9.3); MPV 10.8 FL (7.4-10.4); NEUT# 5.68 X1000 (1.4-6.5); RBC 3.02 XMIL (4.7-6.1); RDW 18.2 % (11.5-14.5)
[2019-05-26 06:35] LABS: PLT 33 X1000 (130-400)
[2019-05-26] MEDS ORDERED: GLYCERIN ADULT PR ONE (07:45)
--- NOTE | 2019-05-26 08:27 | PROGRESS NOTE ---
DATE: 05/26/2019 SUBJECTIVE: Patient is resting comfortably in bed. His abdomen seems to be a little bit distended, but is not painful to palpation. I will try a glycerine suppository and physical therapy today. He is oriented x2. He is not oriented to time. White blood cell count normalized. We started again treatment for C. diff. His urine culture and blood culture showed Morganella morganii. He is tolerating p.o. BUN and creatinine about the same compared with yesterday. He is making good urine. OBJECTIVE: Vital Signs: Temperature 98 degrees, pulse 82, respiratory rate 11, blood pressure 113/71, and oxygen saturation 96% on 2 L of nasal cannula. HEENT: Head normocephalic. No trauma. PERRLA. Neck: Supple. No JVD. No masses. Central trachea. Chest: Clear to auscultation. Mild faint and expiratory wheezing, some crepitus at the bases. Abdomen: Soft. Slightly distended. Tympanic to palpation, but positive bowel sounds. No hepatosplenomegaly. Extremities: No edema. No clubbing. No cyanosis. Neurological: The patient is alert. He is oriented x2. He is not oriented to time. He moves all 4 extremities spontaneously. He is following commands. He is still using the Perry catheter with no signs of gross hematuria. LABORATORY: WBC 6.6, hemoglobin 9.5, hematocrit 29.6, and platelets 33,000. Sodium 141, potassium 4.8, chloride 115, bicarbonate 18, BUN 33, creatinine 2, glucose 140, calcium 7.9, magnesium 2, lactate level 0.8, and albumin 2.4. ASSESSMENT AND PLAN: 1. Septic shock due to urinary tract infection/bacteremia. We have a positive urine culture and blood culture that showed Morganella morganii. This patient has been placed on cefepime. Infectious Disease Department on board. He is no longer on pressors. He will be transferred to the CIC unit. 2. Right lateral stone with right hydronephrosis, status post cystoscopic exam with left ureteroscopy with laser lithotripsy and stone basket extraction, left ureteral stent placement, and cystogram postoperative day #2. 3. Urology Department on board. He is making urine. I do not see any gross hematuria. 4. Acute kidney injury, probably a combination of septic shock and postobstructive. Creatinine about the same compared with yesterday. We will monitor. Continue with IV fluids. This patient is tolerating p.o. His urine output is around 1875. We will monitor this closely, and I will consult Nephrology Department if the kidney function gets worse. 5. Hypomagnesemia. Resolved. 6. Thrombocytopenia about the same compared with yesterday. 7. Hematology/Oncology Department following this patient likely secondary to septic shock. 8. History of non-Hodgkin's lymphoma, aware. 9. History of pulmonary embolism in November of 2018 aware. 10. Hypertension. Actually, this patient has been having low blood pressure due to septic shock. At this moment, he is not on any blood pressure medication. 11. Hyperlipidemia. Aware. 12. GERD. Continue PPI's. 13. Recent diagnosis of C. diff. Infectious Disease Department has been placing this patient back on vancomycin p.o. We will monitor. 14. Anemia. We will monitor this patient closely. Stable. 15. This patient is DNR level 1. 16. Physical deconditioning. I have placed a consult for physical therapy and occupational therapy. cc: Javid Reinoso MD [facility]
--- NOTE | 2019-05-26 08:37 | Diag Imaging Result Doc PS360 ---
EXAM: ABDOMEN FLAT/UPRIGHT HISTORY: pain TECHNIQUE: Flat and upright, two views COMPARISON: 04/18/2019 FINDINGS: No free air beneath the diaphragm. There is a left ureteral stent. No bowel obstruction. No organomegaly. Mild degenerative spine changes. IMPRESSION: No acute abnormality Electronically signed by Bin Moon 05/26/2019 8:35 AM
[2019-05-26] MEDS: CULTURELLE PO SCH ×2 (09:00→20:35)
[2019-05-26] MEDS: MYCOSTATIN SUSP PO SCH ×4 (09:00→20:35)
[2019-05-26] MEDS: D5 1/2 NS 1,000 ML IV SCH ×2 (09:01→23:34)
--- NOTE | 2019-05-26 09:06 | Diag Imaging Result Doc PS360 ---
EXAM: FLUROSCOPY CYSTO HISTORY: LEFT STONE EXTRACTION, STENT PLACEMENT TECHNIQUE: 10 films submitted COMPARISON: None. FINDINGS: Early film show a wire within the left ureter. A ureteral stent was placed. The wire was removed. Contrast moderately fills the urinary bladder. IMPRESSION: Left ureteral stent placed. By history stones were removed. Electronically signed by Bin Moon 05/26/2019 9:04 AM
--- NOTE | 2019-05-26 13:32 | HEMO/ONC PROGRESS NOTE ---
DATE: 05/26/2019 HISTORY OF PRESENT ILLNESS/SUBJECTIVE: Mr. Sow is resting comfortably in bed this morning. He states he feels a little bit better than he did yesterday. The patient states he had a good night's sleep. His family is at his bedside this morning. He had no significant events overnight. OBJECTIVE: Vital Signs: Temperature 99.7 degrees, pulse rate 85, respiratory rate 12, blood pressure 113/75, O2 saturation 98% on nasal cannula at 2 L. He is in 0/10 pain. Physical Examination: General: This is a chronically ill-appearing gentleman in no acute distress. Skin: Skin is warm and dry without rashes or lesions. HEENT: Sclerae are anicteric. PERRLA. Oral mucosa is pink and moist. Cardiovascular: Normal S1, S2. Heart rate and rhythm regular. Respiratory: No signs of respiratory distress. Lung sounds are clear in all lobes. Abdomen: Slightly distended. Tender to palpation on the lower quadrants. Neurological: Awake, alert, and oriented x2. Extremities: No edema noted. Laboratory: WBCs 6.6, hemoglobin 9.5, hematocrit 29.6, platelet count 33,000, ANC 5.68. Creatinine 2.0, calcium 7.9. B12 and folate were adequate. ASSESSMENT: 1. Relapsed follicular non-Hodgkin's lymphoma. 2. Septic shock due to urinary tract infection. 3. Right ureteral stone with right hydronephrosis, status post lithotripsy. 4. Acute kidney injury. 5. Thrombocytopenia. PLAN: The patient is now being treated for C. difficile. Continue management per Dr. Qureshi and medical service management. On admission, the patient was noted to be thrombocytopenic. On his last clinic visit, his platelets were normal. This is most likely related to sepsis and associated peripheral destruction. DIC profile is negative. B12 and folate are adequate. Transfuse with platelets for a platelet count less than 20,000 or bleeding. We will continue to monitor closely. Dictated by JAKY Fine for Jacinto Mackey MD cc: Jacinto Mackey MD [facility]
--- NOTE | 2019-05-26 15:11 | INFECTIOUS DISEASE PROGRESS NO ---
DATE: 05/26/2019 PRESENT ILLNESS: The patient has a Morganella urinary tract infection with an associated Morganella bacteremia. 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 The patient also has oral candidiasis. He may have aspiration into his lungs. The patient also previously has had episodes of Clostridium difficile diarrhea. MEDICATIONS: The patient is receiving cefepime for his Morganella urinary tract infection and bacteremia. The patient is on Mycostatin swish and swallow for his oral candidiasis. The patient has been discovered to have an immunoglobulin deficiency, and for that, he is going to get infusion of immunoglobulin 20 g today and another 20 g tomorrow. Finally, the patient is on p.o. vancomycin because of the prior episodes of Clostridium difficile diarrhea. PHYSICAL EXAMINATION: Vital Signs: Temperature is 98.6 degrees, pulse 85, respirations 16, blood pressure 117/75. General: This is an ill-appearing elderly male. He is in no acute distress. Head, Eyes, Ears, Nose, and Throat: The patient can hear my spoken words and see near objects. Neck: No pain with movement of the neck. Lungs: Clear to auscultation. Cardiovascular: Regular heart rate. Abdomen: Soft and nontender. Neurologic: The patient is sitting in a chair today. He can move his extremities. There is no tremor. DIAGNOSTIC STUDIES: There is no new radiographic study today. The CBC shows a white count of 6600, hemoglobin 9.5, and platelet count 33,000. Creatinine is 2, GFR is 32, alkaline phosphatase is 148. Today we got back the patient's immunoglobulin levels. IgG is 418 and IgA is 78. Blood and urine cultures are growing Morganella. The patient has thrombocytopenia. ASSESSMENT AND PLAN: 1. My plan is to continue cefepime for his bacteremia and urinary tract infection 2. Continue nystatin for the patient's oral candidiasis. 3. Consider p.o. vancomycin for the patient's history of having Clostridium difficile diarrhea. 4. Infuse immunoglobulin for the patient's immunoglobulin deficiency. 5. As regarding the thrombocytopenia, Dr. Abarca, andJack Mackey are managing it. COMORBIDITIES: 1. Non-Hodgkin lymphoma. 2. Benign prostatic hypertrophy. 3. Left-sided nephrolithiasis for which a stent has been placed. cc: Frandy Qureshi MD [facility]
[2019-05-26] MEDS: GAMUNEX-C 10% IV SCH (15:19)
[2019-05-26] MEDS: PROTONIX IV SCH (17:17)
--- NOTE | 2019-05-26 18:53 | PROGRESS NOTE ---
DATE: 05/26/2019 SUBJECTIVE: No acute events overnight. The patient seems to be doing well. His catheter continues to drain well with 1800 mL drained in the past 24 hours. It is draining clear yellow urine with no evidence of any clots or hematuria. The patient remains afebrile. The patient has been off of any blood pressure support, and blood pressure has been in the 120s to 130s with no evidence of tachycardia. The patient denies any abdominal or flank pain. The patient states he occasionally will have a catching in his left lower quadrant. OBJECTIVE: Vital signs: Temperature 98.6, heart rate 86, blood pressure 120/89, oxygen saturation 99% on 2 L nasal cannula. General: No acute distress. Resting comfortably in bed. Alert and oriented x3. Respiratory: Good respiratory effort without audible wheezing or rales. Abdomen: Soft, nontender, nondistended. No palpable masses or hepatosplenomegaly. Genitourinary: No suprapubic tenderness. No CVA tenderness. No scrotal swelling or palpable scrotal masses. Urethral catheter in place with clear, yellow urinary output. Musculoskeletal: Moving all extremities. LABORATORY DATA: White blood cell count 6.6, hemoglobin 9.5, hematocrit 29.6, platelets 33,000. Sodium 141, potassium 4.8, chloride 115, bicarbonate 18, BUN 33, creatinine 2.0, glucose 140, alkaline phosphatase 148. ASSESSMENT AND PLAN: Mr. Sow is an 83-year-old with history of lymphoma, hypertension, hyperlipidemia, history of Clostridium difficile infection, gastroesophageal reflux disease and recurrent kidney stones who presents postoperatively after treatment of left distal ureteral stone with cystoscopy, left ureteroscopy, laser lithotripsy, stone basket extraction, and left ureteral stent placement on 05/23/2019. The patient overall seems to be doing well. He is off any blood pressure support and has blood pressure within normal range. No evidence of tachycardia. The patient continues to give good urinary output. The patient's renal function unfortunately remains high. The patient denies any flank pain. We will continue with indwelling catheter at this time to optimize drainage. I encouraged him to be more ambulatory. He is being transferred to the [facility] this afternoon. The patient has been followed by Hematology/Oncology due to low platelets as well as Infectious Disease regarding infection. The patient currently is on antibiotics per Dr. Qureshi. Dr. Gonzales will continue to monitor from a urologic standpoint. Please call with questions or concerns. cc: Kane Quinones MD [facility]
[2019-05-26 20:48] LABS: MPV 11.3 FL (7.4-10.4)
[2019-05-26] MEDS ORDERED: NORCO-7.5 PO PRN (21:17)
[2019-05-27] MEDS: MAXIPIME 1 GM in NS 50 ML IV SCH ×2 (03:10→15:22)
[2019-05-27 05:58] LABS: ALB/GLOB RATIO 0.7; ALBUMIN 2.4 g/dL (3.5-5.0); BASO# 0.01 X1000 (0.0-0.2); BASO% 0.2 % (0.0-0.8); CALCIUM 8.4 mg/dL (8.8-10.2); CREATININE 2.2 mg/dL (0.7-1.2); EOS# 0.07 X1000 (0.0-0.7); EOS% 1.6 % (0.0-10.0); HEMATOCRIT 32.8 % (42.0-52.0); HEMOGLOBIN 10.3 g/dL (14.0-18.0); IMM GRAN# 0.03 X1000 (0.0-0.04); IMM GRAN% 0.7 % (0.0-0.5); LYMPH# 0.55 X1000 (1.2-3.4); LYMPH% 12.7 % (20.5-51.1); MCH 31.1 PG (27-31); MCHC 31.4 g/dL (33-37); MCV 99.1 FL (81-99); MONO# 0.47 X1000 (0.11-0.59); MONO% 10.9 % (1.7-9.3); MPV 10.9 FL (7.4-10.4); NEUT% 73.9 % (42.2-75.2); PLT 36 X1000 (130-400); POTASSIUM 4.2 mmol/L (3.5-5.1); RBC 3.31 XMIL (4.7-6.1); RDW 18.6 % (11.5-14.5); TOTAL BILIRUBIN 0.64 mg/dL (0.20-1.00); TOTAL PROTEIN 5.8 g/dL (6.3-8.3); WBC 4.33 X1000 (4.8-10.8)
--- NOTE | 2019-05-27 08:24 | INFECTIOUS DISEASE PROGRESS NO ---
DATE: 05/27/2019 PRESENT ILLNESS: 1. The patient has a Morganella urinary tract infection. 2. He has a Morganella bacteremia originating from the urinary tract infection. 3. The patient has an immunoglobulin deficiency. 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 4. The patient has oral candidiasis. 5. Patient may be aspirating into his lung. 6. The patient previously has had episodes of Clostridium difficile diarrhea. MEDICATIONS: 1. For the patient's urinary tract infection and bacteremia, he is receiving cefepime. This is day 2 of treatment with that. 2. For the patient's immunoglobulin deficiency, he had an infusion of immunoglobulin yesterday, and he will have one for today. As for the patient's oral candidiasis, the patient is on nystatin swish and swallow. 3. For the patient's possible aspiration, he is going to be going down to Radiology today for a swallow study. 4. For the patient's history of Clostridium difficile diarrhea, the patient is receiving p.o. vancomycin. 5. For the patient's oral candidiasis, he is receiving nystatin swish and swallow. PHYSICAL EXAMINATION: Vital Signs: Temperature is 97.9 degrees, pulse 79, respirations 12, blood pressure is 127/66. General: This is an ill-appearing elderly male. He is in no acute distress. Head/eyes/ears/nose/throat: He can hear my spoken words and see near objects. I did not notice any white patches on his tongue. Neck: There is no pain when he moves his neck. Lungs: Clear to auscultation. Cardiovascular: Regular heart rate. Abdomen: Soft and nontender. Neurologic: The patient is alert. He cannot move his extremities. He does not have a tremor. LAB AND X-RAY: There is no new radiographic study. The patient's CBC shows a white count of 4330, hemoglobin 10.3, and platelet count 36,000. Creatinine is 2.2. GFR is 29. The patient will be having a swallow study this morning at Radiology. ASSESSMENT AND PLAN: 1. The patient has Morganella urinary tract infection with an associated Morganella bacteremia. I will continue his cefepime. 2. As for the patient's immunoglobulin deficiency, he received IVIG yesterday, and he will also receive another infusion of IVIG. 3. As for the patient's oral candidiasis, he is on nystatin swish and swallow. 4. As for the patient's possible aspiration as mentioned above. He is going to have a swallow study done today. 5. For the possibility that the patient may have another episode of Clostridium difficile diarrhea, he is on oral vancomycin. COMORBIDITIES: He is elderly. He has benign prostatic hypertrophy. He had left-sided nephrolithiasis which caused his urinary tract infection, for which a stent has been placed, and the patient has non-Hodgkin lymphoma. cc: Frandy Qureshi MD
[2019-05-27] MEDS ORDERED: MILK OF MAGNESIA PO PRN (08:37)
[2019-05-27] MEDS ORDERED: DULCOLAX PR PRN (08:37)
[2019-05-27] MEDS: VANCOCIN PO SCH ×3 (08:39→20:45)
[2019-05-27] MEDS: CULTURELLE PO SCH ×2 (08:39→20:45)
[2019-05-27] MEDS: MYCOSTATIN SUSP PO SCH ×4 (08:39→20:46)
--- NOTE | 2019-05-27 09:04 | PROGRESS NOTE ---
DATE: 05/27/2019 SUBJECTIVE: Mr. Sow had a rough night. He did not sleep much. His son said the morphine makes him stay awake. He denies having much pain. He has not had a bowel movement since Sunday, this is Sunday. He still has his Perry catheter in. OBJECTIVE: Temperature 98.4 degrees, pulse 77, respirations 14, and blood pressure 122/72.HEENT: Pupils are equal and round. Lungs: Clear in all lung alvarado. Cardiovascular: Regular rhythm and rate without murmur or S3. Abdomen: Soft. Skin: Warm and dry. Weight 206 pounds. ASSESSMENT AND PLAN: 1. The patient has urinary tract infection, Morganella organism was growing out. 2. Morganella bacteremia originating from urinary tract infection. 3. 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 4. Patient with oral candidiasis. 5. The patient may have aspirated into his lungs. Aspiration pneumonia. 6. Previous episode of Clostridium difficile diarrhea. PLAN: This is an 83-year-old with a history of lymphoma, hypertension, hyperlipidemia, Clostridium difficile infection, gastroesophageal reflux disease, and recurrent kidney stones presented postoperatively after treatment for left distal ureteral stone with cystoscopy and left ureteroscopy with laser lithotripsy, stone basket extraction, left ureteral stent placement on 05/23/2019. Overall, he seems to be doing better. We will see if we can get his catheter out. He is constipated so we will try and see if we can get him something for his bowels, and maybe get the catheter out. Increase his activity with physical therapy. Hopefully, he can he can go home soon. Looking over his orders, I am going to stop his hydrocodone. We will stop his morphine. He is on Maxipime 1 g q.12. He has Dulcolax suppository ordered, p.r.n. Milk of Magnesia ordered p.r.n. She has put him on some Metamucil. He is on MiraLAX. He is also on vancomycin 250 mg p.o. q.6 hours. cc: Jose Royal MD
[2019-05-27] MEDS: GAMUNEX-C 10% IV SCH (10:43)
--- NOTE | 2019-05-27 12:56 | Diag Imaging Result Doc PS360 ---
EXAM: BA SWALLOW W/VIDEO SPEECH THER 05/27/2019 HISTORY: aspiration TECHNIQUE: 110 images 94 mGy, 21 seconds fluoroscopy time. COMMENT: The patient is able to swallow various consistencies of barium without evidence of aspiration. There is no evidence of achalasia. IMPRESSION: Normal study. Electronically signed by Tavo Esquivel 05/27/2019 12:54 PM
--- NOTE | 2019-05-27 12:57 | HEMO/ONC PROGRESS NOTE ---
DATE: 05/27/2019 HISTORY OF PRESENT ILLNESS/SUBJECTIVE: Mr. Sow is resting in bed this morning. He has not had breakfast yet. He still remains somewhat tired. He falls asleep easily during our conversation, but awakes easily to my touch. He states he had a good night's sleep. His family is at bedside. He had no significant events overnight. The patient states his abdomen feels slightly tender and that the Perry catheter is very irritating to him. OBJECTIVE: Vital Signs: Temperature 98.1 degrees, pulse rate 74, respiratory rate 17, blood pressure 124/64, O2 saturation 100% on room air. Pain: He is in 0/10 pain. General: This is a chronically ill-appearing elderly gentleman, in no acute distress. Skin: Skin is warm, dry, and intact. HEENT: Sclerae are anicteric. PERRLA. Oral mucosa is pink and moist. Cardiovascular: Normal S1, S2. Heart rate and rhythm are regular. Respiratory: No signs of respiratory distress. Lungs are clear to auscultation Gastrointestinal: Abdomen is distended. It is tender to palpation, more so on the right side. Neurological: Awake, alert, oriented x2. Extremities: No lower extremity edema noted. ASSESSMENT: 1. Relapsed follicular non-Hodgkin lymphoma. 2. Septic shock due to urinary tract infection. 3. Right ureteral stone with right hydronephrosis, status post lithotripsy. 4. Acute kidney injury. 5. Thrombocytopenia. PLAN: Continue management per Dr. Qureshi and hospitalist service. The patient's thrombocytopenia is most likely related to sepsis and associated peripheral destruction. We will continue to monitor and follow. Transfusion for a platelet count less than 20,000 or a bleeding episode. Dictated by JAKY Fine for Jacinto Mackey MD cc: Jacinto Mackey MD [facility]
[2019-05-27] MEDS: D5 1/2 NS 1,000 ML IV SCH (15:22)
--- NOTE | 2019-05-27 16:00 | PROGRESS NOTE ---
DATE: 05/27/2019 ADDENDUM: He is not ready to go home. We are going to need to set up his antibiotics. We are going to need to set up other things too, so he will not be discharged. Continue his current treatment. We will discuss this with Dr. Qureshi and Dr. Quinones, see where we are tomorrow. cc: Jose Royal MD
--- NOTE | 2019-05-27 16:13 | DISCHARGE SUMMARY ---
ADMISSION DATE: 05/23/2019 DISCHARGE DATE: 05/27/2019 HISTORY: This is an 83-year-old gentleman who presented to the emergency room with family members for altered mental status and fever. Family members stated that the patient had been weak over the last few days. Had been diagnosed with C. difficile. During the hour or 2 hours prior to coming to the emergency room he had a big decline in mental status and fever, reportedly a temp of 102 degrees at home. On arrival in the emergency room, he had a rectal temperature of 105.7 degrees. He was tachycardic. Patient unable to answer questions due to mental status or to assist in his care. He does have a history of kidney stones, undergoing extracorporeal shockwave lithotripsy on his left kidney on 05/01/2019. He had an 8 to 10 mm calcification overlying the left lower pole with a 4 to 5 mm stone in the mid kidney area. He has tolerated this well. Will discharge home. Family members state he has not complained of any abdominal pain. PAST MEDICAL HISTORY: Reviewed again. 1. Benign prostatic hypertrophy with obstruction. 2. Left-sided nephrolithiasis. 3. Hypertension. 4. Hyperlipidemia. 5. Non-Hodgkin's lymphoma, diagnosed in 2013. In April of 2019 he had a recurrence. 6. Pulmonary embolus in 2018. Reportedly received 4 months of Xarelto. 7. Pulmonary embolus in November 2018 and placed on Xarelto again. PAST SURGICAL HISTORY: The only thing he reports is extracorporeal shockwave lithotripsy. ADMISSION DIAGNOSES: 1. He came in with sepsis and bacteremia. Urinary cultures were obtained. He was put on Rocephin, Flagyl, and IV hydration. 2. A 6 mm obstructing distal left ureteral stone with hydronephrosis. Urology was consulted. 3. Acute kidney injury. Thought likely postobstructive, so we gave him some fluids and urology was involved. 4. Hypomagnesemia. Supplemented his magnesium. 5. Thrombocytopenia. I wanted to hold off on anticoagulation and so they held the Xarelto. 6. History of non-Hodgkin's lymphoma. At this point he is in remission. 7. Pulmonary embolus in November 2018, on Xarelto, which they were holding. 8. Hypertension. 9. Hyperlipidemia. 10. Recent diagnosis of Clostridium difficile, so we continued his Flagyl. HOSPITAL COURSE: Dr. Kane Quinones had seen him and did a cystoscopy, left ureter ureteroscopy with laser, lithotripsy, stone basket extraction, left ureteral stent placement, and cystogram. He had a little bit of postoperative hematuria. The patient tolerated the procedure well. Hematology/Oncology, Dr. Mackey was asked to follow. He has a history of relapse follicular non- Hodgkin's lymphoma. His last treatment was 08/2018. He has been without any evidence of disease since then. Most recent PET scan was 03/20/2019. The patient clinically shows some improvement. Dr. Frandy Quresih was consulted. The patient grew out Morganella urinary tract infection bacteremia associated with Morganella bacteremia. 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 He also had some oral candidiasis. He showed steady improvement and felt he was ready to go home. We arranged for his home antibiotics, his home O2, and plan to discharge him on 05/27/2019. He will follow up with Dr. Mackey. Follow up with Dr. Quinones. DISCHARGE MEDICATIONS: He will be on his cefepime 1 g IV q.12. He was given some immunoglobulin 20 g IV today. He will be on Culturelle 1 p.o. b.i.d., milk of magnesia 30 mL at bedtime p.r.n., MiraLAX 17 g a day, Protonix we will change to 40 mg p.o. daily; he was getting that IV. Ultram 50 mg q.6 hours p.r.n. We will stop his vancomycin. He will continue the p.o. vancomycin. cc: Jose Royal MD
[2019-05-27] MEDS: ULTRAM PO PRN (16:33)
[2019-05-27] MEDS ORDERED: TYLENOL PO PRN (17:31)
[2019-05-27] MEDS: PROTONIX IV SCH (17:41)
[2019-05-27] MEDS: METAMUCIL PO SCH (20:45)
[2019-05-27] MEDS: MIRALAX PO SCH (20:46)
[2019-05-28] MEDS: ULTRAM PO PRN (00:55)
[2019-05-28] MEDS ORDERED: TEARISOL OPH SOLUTION OPH PRN (02:27)
[2019-05-28] MEDS: MAXIPIME 1 GM in NS 50 ML IV SCH ×2 (03:26→14:46)
[2019-05-28] MEDS: D5 1/2 NS 1,000 ML IV SCH ×2 (03:26→17:19)
[2019-05-28] MEDS: VANCOCIN PO SCH ×4 (03:26→20:37)
[2019-05-28] MEDS: DUONEB (A & A) INH PRN ×3 (03:33→20:26)
[2019-05-28 05:59] LABS: CALCIUM 8.7 mg/dL (8.8-10.2); CREATININE 1.7 mg/dL (0.7-1.2); POTASSIUM 4.1 mmol/L (3.5-5.1)
[2019-05-28] MEDS: MYCOSTATIN SUSP PO SCH ×4 (08:04→20:37)
[2019-05-28] MEDS: CULTURELLE PO SCH ×2 (08:04→20:37)
[2019-05-28] MEDS: MIRALAX PO SCH (08:04)
--- NOTE | 2019-05-28 08:32 | INFECTIOUS DISEASE PROGRESS NO ---
DATE: 05/28/2019 PRESENT ILLNESS: The patient has a Morganella urinary tract infection associated with a Morganella bacteremia. The patient also has an immunoglobulin deficiency; specifically, his IgG level was 418. The patient also has oral candidiasis. The patient previously had Clostridium difficile. I thought that the patient might be aspirating into his lungs but his barium swallow yesterday was normal. Therefore, it would be highly unlikely that the patient is aspirating into his lung. MEDICATIONS: This is the third day of treatment with cefepime for the patient's urinary tract infection and bacteremia. The patient now has had 2 infusions of immunoglobulin to correct his immunoglobulin deficiency. The patient also has been taking nystatin swish and swallow for his oral candidiasis. Because of the patient's Clostridium difficile diarrhea in the past, he is on vancomycin to prevent a recurrence. For the patient's oral candidiasis, he is receiving nystatin swish and swallow. PHYSICAL EXAMINATION: Vital Signs: Temperature is 97.9 degrees, pulse 71, respirations 16, blood pressure 133/69. General: This is an ill-appearing, elderly male. He is in no acute distress. Head, Eyes, Ears, Nose, and Throat: He can hear my spoken words and see near objects. I did not notice any white coating of his tongue. Neck: The patient does not have any pain when he moves his neck. Lungs: Clear to auscultation. Cardiovascular: Heart rate is regular. Abdomen: Soft and nontender. Neurologic: The patient is alert. Yesterday, he walked to the bathroom. He does not have a tremor. LAB AND X-RAY: As mentioned above, the barium swallow was normal. There is no new x-ray for today. ASSESSMENT AND PLAN: The patient's Morganella urinary tract infection and associated bacteremia is being treated with cefepime. As for the patient's immunoglobulin deficiency, he has received 2 separate infusions of IVIG. As for the patient's oral candidiasis, I am going to continue nystatin swish and swallow. I was concerned that the patient was aspirating but I think, with this barium swallow showing no aspiration, the patient does not indeed have aspiration. Finally, the patient has already had Clostridium difficile diarrhea and my plan is to continue with vancomycin as long as the patient is on antibiotics. COMORBIDITIES: The patient is elderly. He has benign prostatic hypertrophy. He also has left- sided nephrolithiasis which caused his infection and for which a stent has been placed. The patient also has non-Hodgkin's lymphoma, which is probably why his IVIG was low. cc: Frandy Qureshi MD
[2019-05-28 08:40] LABS: BASO# 0.01 X1000 (0.0-0.2); BASO% 0.3 % (0.0-0.8); EOS% 2.9 % (0.0-10.0); HEMATOCRIT 30.2 % (42.0-52.0); HEMOGLOBIN 9.5 g/dL (14.0-18.0); IMM GRAN# 0.02 X1000 (0.0-0.04); IMM GRAN% 0.6 % (0.0-0.5); LYMPH# 0.45 X1000 (1.2-3.4); LYMPH% 12.9 % (20.5-51.1); MCHC 31.5 g/dL (33-37); MCV 98.7 FL (81-99); MONO# 0.58 X1000 (0.11-0.59); MONO% 16.6 % (1.7-9.3); MPV 10.7 FL (7.4-10.4); NEUT# 2.34 X1000 (1.4-6.5); NEUT% 66.7 % (42.2-75.2); PLT 33 X1000 (130-400); RBC 3.06 XMIL (4.7-6.1); RDW 18.4 % (11.5-14.5)
--- NOTE | 2019-05-28 09:17 | PROGRESS NOTE ---
DATE: 05/28/2019 SUBJECTIVE: Mr. Sow does feel stronger. His daughter was there. He is having some sundowning and evening confusion, which she is concerned about. OBJECTIVE: Vital Signs: Temperature is 97.9 degrees, pulse 70, respirations 16, blood pressure 133/69. HEENT: Pupils are equal and round. Lungs: Clear in all lung alvarado. Cardiovascular: Regular rhythm and rate without murmur or S3. Abdomen: Soft. Skin: Warm and dry. LABORATORY DATA: Lab reviewed from this morning. White count 3500, hematocrit is 30, hemoglobin 9.5, platelet count is 33,000. Sodium 142, potassium 4.1, chloride 114, BUN 28, creatinine 1.7, which has come down from 2.2. ASSESSMENT AND PLAN: He had Morganella urinary tract infection associated with Morganella bacteremia. Also has immunoglobulin deficiency. 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 Has oral candidiasis previously. He had Clostridium difficile. I thought the patient might be aspirating the lungs. He had a barium swallow, which was normal, and so I do not feel like this was aspiration. This is the third day of treatment with cefepime. He has had two infusions of immunoglobulin to correct his immunoglobulin deficiency. Also has been taking nystatin swish and swallow. Because of the history of Clostridium difficile, he is on oral vancomycin to prevent recurrence, so will continue present regimen. The family is thinking about trying to go to rehab, so we will pursue rehab placement. The patient has relapsed follicular non-Hodgkin's lymphoma. He presented with septic shock, has a renal ureteral stone and right hydronephrosis, status post lithotripsy, and he has a stent in that right ureter, as well as right kidney injury and some thrombocytopenia. His platelet count this morning was 33,000. Will continue physical therapy. We are going to try and get his Perry catheter out. He did have a large bowel movement yesterday. Continue physical therapy and occupational therapy, and continue present regimen. cc: Jose Royal MD
--- NOTE | 2019-05-28 13:05 | HEMO/ONC PROGRESS NOTE ---
DATE: 05/28/2019 SUBJECTIVE: Mr. Sow continuing to rest in bed. He states he does feel stronger and feels better. His family is concerned about him having possible sundowner's with evening confusion. Patient had no significant events overnight. The patient is to have his Perry catheter removed, it is continuing to bother him. OBJECTIVE: VITAL SIGNS: Temperature 98.3 degrees, pulse rate 74, respiratory rate 19, blood pressure 201/67, O2 saturation 98% on 2 L via nasal cannula. He in 0/10 pain. PHYSICAL EXAMINATION: General: This is a chronically ill-appearing gentleman in no acute distress. Skin: Warm, dry, and intact. HEENT: Sclerae is anicteric. PERRLA. Oral mucosa is pink and moist. Cardiovascular: Normal S1, S2. Heart rate and rhythm regular. RESPIRATORY: No signs of respiratory distress. Clear to auscultation. Abdomen: Soft. General tenderness to palpation. Neurological: Awake, alert, oriented x2. No Focal motor deficit noted. Extremities: No lower extremity edema noted. LABORATORY DATA: WBC 3.50, hemoglobin 9.5, hematocrit 30.2, platelet count 33,000. ANC 2.34. Creatinine 1.7. ASSESSMENT: 1. Relapsed follicular non-Hodgkin lymphoma. 2. Septic shock due to urinary tract infection. 3. Right ureteral stone with right hydronephrosis status post lithotripsy. 4. Acute kidney injury. 5. Thrombocytopenia. PLAN: Continue the patient's sepsis treatment per Dr. Qureshi and Hospitalist. His thrombocytopenia is most likely related to the sepsis and associated cortical destruction. Platelets remain 33,000. Patient will need a transfusion for platelet count next to 20,000 or a bleeding episode. It looks like Dr. Royal is preparing him for discharge. We will continue to follow. Dictated by JAKY Fine for Jacinto Mackey MD cc: Jacinto Mackey MD [facility]
[2019-05-28] MEDS: METAMUCIL PO SCH (20:37)
[2019-05-28] MEDS: PROTONIX PO SCH (20:37)
[2019-05-29 01:59] LABS: URINE SOURCE CATH
[2019-05-29] MEDS: VANCOCIN PO SCH ×4 (02:00→20:58)
[2019-05-29 02:09] LABS: BILIRUBIN URINE NEGATIVE (NEGATIVE); BLOOD URINE LARGE (NEGATIVE); COLOR STRAW; GLUCOSE URINE NEGATIVE (NEGATIVE); KETONE URINE NEGATIVE (NEGATIVE); LEUKOCYTES URINE SMALL (NEGATIVE); NITRITE URINE NEGATIVE (NEGATIVE); PH URINE 5.5; PROTEIN URINE TRACE mg/dL (NEGATIVE); SP GRAVITY URINE 1.007; TURBIDITY URINE HAZY (CLEAR); UROBILINOGEN URINE NORMAL (NORMAL)
[2019-05-29 02:10] LABS: UR EPITHELIAL CELLS <10 /HPF (<10); URINE BACTERIA NEGATIVE /HPF; URINE RBC TNTC /HPF (<10); URINE WBC <10 /HPF (<10)
[2019-05-29] MEDS: MAXIPIME 1 GM in NS 50 ML IV SCH ×2 (04:38→14:31)
[2019-05-29] MEDS: D5 1/2 NS 1,000 ML IV SCH ×2 (05:54→20:46)
--- NOTE | 2019-05-29 06:39 | PROGRESS NOTE ---
DATE: 05/29/2019 SUBJECTIVE: Mr. Sow had to have his catheter put back in yesterday. Overall, he is doing a little better, but was unable to void. OBJECTIVE: Vitals: Temperature 97.7 degrees, pulse 75, respirations 15, blood pressure 138/75. HEENT: Pupils are equal and round. Respiratory: Lungs are clear in all lung alvarado. Cardiovascular: Regular rhythm and rate without murmur or S3. DIAGNOSTIC DATA: Urine output was 2100 mL. ASSESSMENT AND PLAN: 1. Relapsed follicular non-Hodgkin's lymphoma, presented with septic shock, urinary tract infection, right ureter stone with right hydronephrosis status post lithotripsy, has a stent, I think, in place now, and acute kidney during injury which is improved. His catheter is back in, we tried to stop it yesterday. He had, had some trouble with constipation, so continue his bowel regimen, and I will put him on high-dose Flomax and we will try some Proscar as well to see if we can shrink his prostate down. Hopefully can discontinue the Perry. 2. Continue physical therapy. 3. Continue his vancomycin and his cefepime. cc: Jose Royal MD
--- NOTE | 2019-05-29 06:55 | INFECTIOUS DISEASE PROGRESS NO ---
DATE: 05/29/2019 PRESENT ILLNESS: The patient has a Morganella urinary tract infection associated with a Morganella bacteremia. The patient also has an immunoglobulin deficiency. The patient has oral candidiasis. The patient previously had Clostridium difficile. The patient's swallow study indicates that he is not aspirating. MEDICATIONS: This is day 4 of treatment with cefepime for the patient's urinary tract infection and bacteremia. The patient has completed 2 infusions of immunoglobulin for his immunoglobulin deficiency. The patient is also taking nystatin swish and swallow for his oral candidiasis. Finally, the patient is getting p.o. vancomycin to hopefully prevent another episode of Clostridium difficile diarrhea. PHYSICAL EXAMINATION: Vital Signs: Temperature is 97.7 degrees, pulse 75, respirations 15, blood pressure is 138/75. General: This is an ill-appearing, elderly male. He is in no acute distress. Head, Eyes, Ears, Nose, and Throat: He can hear my spoken words and see near objects. He does not have any white patches in his mouth. Neck: The patient does not have any pain with movement of his neck. Lungs: Clear to auscultation. Cardiovascular: Heart rate is regular except for occasional premature beats. Abdomen: Soft and nontender. Genitalia: The patient's Perry catheter has been reinserted. Neurologic: The patient is alert. He walked around in the ferreira. He does not have a tremor. LAB AND X-RAY: There is no CBC or BMP for today. A catheterized urine showed a small amount of leukocytes and no bacteria. Also, thus far, there is no new radiographic study for today. ASSESSMENT AND PLAN: I plan to continue cefepime for the patient's Morganella urinary tract infection and bacteremia. The patient has received 2 separate infusions of IVIG for his immunoglobulin deficiency. Also, I am planning on continuing nystatin swish and swallow for the patient's oral candidiasis. Also, I am going to continue the patient's oral vancomycin for as long as he is on antibiotics. COMORBIDITIES: The patient is elderly, he has benign prostatic hypertrophy, a left-sided nephrolithiasis which caused his urinary tract infection with bacteremia, and the patient also has non-Hodgkin's lymphoma which is probably why he has an immunoglobulin deficiency. cc: Frandy Qureshi MD
[2019-05-29] MEDS: CULTURELLE PO SCH ×2 (08:24→20:58)
[2019-05-29] MEDS: FLOMAX PO SCH ×2 (08:24→20:58)
[2019-05-29] MEDS: PROSCAR PO SCH (08:24)
[2019-05-29] MEDS: MYCOSTATIN SUSP PO SCH ×4 (08:24→20:58)
[2019-05-29] MEDS: MIRALAX PO SCH (08:25)
[2019-05-29 08:27] LABS: BASO# 0.02 X1000 (0.0-0.2); BASO% 0.5 % (0.0-0.8); EOS# 0.14 X1000 (0.0-0.7); EOS% 3.6 % (0.0-10.0); HEMATOCRIT 32.6 % (42.0-52.0); HEMOGLOBIN 10.2 g/dL (14.0-18.0); IMM GRAN# 0.02 X1000 (0.0-0.04); IMM GRAN% 0.5 % (0.0-0.5); LYMPH# 0.77 X1000 (1.2-3.4); LYMPH% 19.7 % (20.5-51.1); MCH 30.8 PG (27-31); MCHC 31.3 g/dL (33-37); MCV 98.5 FL (81-99); MONO# 0.44 X1000 (0.11-0.59); MONO% 11.3 % (1.7-9.3); NEUT# 2.52 X1000 (1.4-6.5); NEUT% 64.4 % (42.2-75.2); PLT 38 X1000 (130-400); RBC 3.31 XMIL (4.7-6.1); WBC 3.91 X1000 (4.8-10.8)
[2019-05-29] MEDS ORDERED: LEVAQUIN PO SCH (09:00)
--- NOTE | 2019-05-29 13:28 | HEMO/ONC PROGRESS NOTE ---
DATE: 05/29/2019 HISTORY OF PRESENT ILLNESS/SUBJECTIVE: Mr. Sow is sitting up in the bedside chair, eating his breakfast. He states he feels better this morning. He did have his Perry catheter removed yesterday afternoon and was unable to urinate. It was replaced about 1:30 this morning. The patient states he is okay with going to rehab in the next couple of days to get stronger. He does state that he feels better. He had no significant events overnight. OBJECTIVE: Vital Signs: Temperature 98.6 degrees, pulse rate 70, respiratory rate 14, blood pressure 134/73, O2 saturation 100% on room air. He is in 0/10 pain. Physical Examination: General: This is a chronically ill-appearing gentleman, in no acute distress. Skin: Warm, dry, and intact. HEENT: Sclerae are anicteric. PERRLA. Oral mucosa is pink and moist. Cardiovascular: Normal S1, S2. Heart rate and rhythm are regular. Respiratory: No signs of respiratory distress. Lungs are clear to auscultation. Abdomen: Soft. General tenderness to palpation. Neurological: Awake, alert, and oriented x2. No focal motor deficits noted. Extremities: No lower extremity edema noted. Laboratory: WBCs 3.91, hemoglobin 10.2, hematocrit 32.6, platelet count 38,000. ASSESSMENT: 1. Relapsed follicular non-Hodgkin's lymphoma. 2. Septic shock due to urinary tract infection. 3. Right ureteral stone with right hydronephrosis, status post lithotripsy. 4. Acute kidney injury. 5. Thrombocytopenia. PLAN: Continue to treat the patient for medical management and infectious disease. Transfuse the patient if the platelet count drops to 20,000 or has a bleeding episode. We are continuing to monitor. Dictated by JAKY Fine for Jacinto Mackey MD cc: MD JACK Galvez
[2019-05-29] MEDS: DUONEB (A & A) INH PRN ×2 (15:41→21:25)
[2019-05-29] MEDS: PROTONIX PO SCH (20:58)
[2019-05-29] MEDS: METAMUCIL PO SCH (20:58)
[2019-05-30] MEDS: MAXIPIME 1 GM in NS 50 ML IV SCH (02:51)
[2019-05-30] MEDS: VANCOCIN PO SCH ×2 (02:51→09:00)
--- NOTE | 2019-05-30 06:38 | INFECTIOUS DISEASE PROGRESS NO ---
DATE: 05/30/2019 PRESENT ILLNESS: The patient has the following illnesses: 1. Morganella urinary tract infection with an associated bacteremia. 2. Immunoglobulin deficiency. 3. Oral candidiasis. 4. History of Clostridium difficile diarrhea. MEDICATIONS: This is day 5 of treatment with cefepime for the patient's urinary tract infection and bacteremia. The patient has received 2 infusions of IVIG for his immunoglobulin deficiency. The patient continues to take nystatin swish and swallow for his oral candidiasis. Finally, the patient is on p.o. vancomycin to prevent another episode of Clostridium difficile diarrhea. PHYSICAL EXAMINATION: Vital Signs: Temperature is 97.9 degrees, pulse 67, respirations 18, blood pressure 140/68. General: This is an ill-appearing elderly male. He is in no acute distress. Head, eyes, ears, nose, and throat: He can hear my spoken words. He can see near objects. He does not have any white coating on his tongue. Neck: No pain with movement of his neck. Lungs: Clear to auscultation. Cardiovascular: The patient appears to be in sinus rhythm, but he has quite a few premature beats so that when I listen to him, it sounds like it is irregular. Abdomen: Soft and nontender. Genitalia: Patient continues to have Perry catheter in place. Neurologic: The patient is alert. He can move his extremities. He does not have a tremor. LAB AND X-RAY: CBC shows a white count of 3910, hemoglobin 10.5, and platelet count 38,000. Creatinine is 1.7, GFR is 39. Urinalysis shows red cells, but no white cells or bacteria. Stool for Clostridium difficile toxin and antigen is negative. The patient does not yet have a radiographic study for today. ASSESSMENT AND PLAN: I plan to continue cefepime for the patient's urinary tract infection and bacteremia. Also, I plan to continue nystatin for the patient's oral candidiasis. Also, I am going to continue p.o. vancomycin for as long as the patient is on antibiotics. As regarding the patient's immunoglobulin deficiency, I do not think he will need another infusion for 4 to 6 weeks and his further infusions will be managed by Dr. Mackey. COMORBIDITIES: The patient has non-Hodgkin's lymphoma, benign prostatic hypertrophy, nephrolithiasis, and he has an immunoglobulin deficiency. cc: Frandy Qureshi MD
[2019-05-30] MEDS: D5 1/2 NS 1,000 ML IV SCH ×2 (08:59→09:02)
[2019-05-30] MEDS: MIRALAX PO SCH (08:59)
[2019-05-30] MEDS: MYCOSTATIN SUSP PO SCH ×2 (08:59→12:55)
[2019-05-30] MEDS: CULTURELLE PO SCH (09:00)
[2019-05-30] MEDS: PROSCAR PO SCH (09:00)
[2019-05-30] MEDS: FLOMAX PO SCH (09:00)
[2019-05-30 09:19] LABS: BASO# 0.01 X1000 (0.0-0.2); BASO% 0.2 % (0.0-0.8); EOS# 0.12 X1000 (0.0-0.7); EOS% 2.8 % (0.0-10.0); HEMATOCRIT 27.8 % (42.0-52.0); HEMOGLOBIN 8.9 g/dL (14.0-18.0); LYMPH# 0.48 X1000 (1.2-3.4); LYMPH% 11.3 % (20.5-51.1); MCV 96.9 FL (81-99); MONO# 0.48 X1000 (0.11-0.59); MONO% 11.3 % (1.7-9.3); MPV 11.3 FL (7.4-10.4); NEUT# 3.17 X1000 (1.4-6.5); NEUT% 74.4 % (42.2-75.2); PLT 41 X1000 (130-400); RBC 2.87 XMIL (4.7-6.1); RDW 16.9 % (11.5-14.5); WBC 4.26 X1000 (4.8-10.8)
[2019-05-30 11:13] VITALS: BP 135/74
--- NOTE | 2019-05-30 11:19 | DISCHARGE SUMMARY ---
ADMISSION DATE: 05/23/2019 DISCHARGE DATE: 05/30/2019 LOCATION: Going to [facility] Rehab. HOSPITAL COURSE: This is an 83-year-old, who presented with altered mental status. His doctor is Conor Jimenez. He is an 83-year-old gentleman who presented to the emergency room. Family members offer altered mental status and fever. Family stated the patient had been weak over the last couple days. Recently diagnosed with C difficile. During an hour or 2 hours prior to coming to the emergency room, he had a big decline in mental status and fever. Temperature reported to be 102 at home. He had rectal temperature of 105 degrees. He had some tachycardia. In the emergency room, it was also determined he had a history of kidney stones and was undergoing extracorporeal shockwave lithotripsy to his left kidney on 05/01/2019. He had an 8 to 10 mm calcification overlying the left lower pole with a 4 to 5 mm stone in the mid kidney area. He he tolerated this procedure well, the lithotripsy, and was discharged home. PAST MEDICAL HISTORY: 1. Benign prostatic hypertrophy with obstruction. 2. Left-sided nephrolithiasis. 3. Hypertension. 4. Hyperlipidemia. 5. Non-Hodgkin's lymphoma diagnosed in 2013; in 2019 he had recurrence. He is back in remission. 6. Pulmonary embolus in January 2018. Received 4 months of Xarelto. 7. Pulmonary embolus in November of 2018, and was placed back on Xarelto I believe. PAST SURGICAL HISTORY: Extracorporeal lithotripsy. ADMISSION DIAGNOSES: 1. Sepsis, presumed urosepsis. Start him on Rocephin, Flagyl, and intravenous hydration. 2. A 6 mm obstructing distal left ureteral stone with hydronephrosis. Dr. Quinones was consulted on the case. 3. Acute kidney injury felt predominantly postobstructive. 4. Hypomagnesemia. This was supplemented. 5. Thrombocytopenia. 6. Non-Hodgkin's lymphoma appears to be in remission. 7. 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 8. Hypertension. 9. Hyperlipidemia. 10. Recent treatment and diagnosis of Clostridium difficile colitis. Dr. Quinones was consulted. He had a 6 mm obstructing left ureteral stone causing moderate hydronephrosis with significant stranding and perinephric edema. Urinalysis showed no evidence of any infection, but did have significant amount of blood and leukocytosis. PLAN: To proceed with cystoscopy and left ureter stent placement, and this was done on 05/23/2019; cystoscopy, left ureteroscopy and laser lithotripsy, stone basket extraction, left ureteral stent placement and cystogram. The patient showed steady improvement. Dr. Mackey was asked to follow; he has followed him for his non-Hodgkin's lymphoma. He had a relapsed follicular non-Hodgkin's lymphoma treated back in August 2018. no evidence of recurrence. Most recent PET scan was 03/20/2019. The patient showed improvement. Recommended he continue the Perry catheter. Dr. Qureshi for Infectious Disease is treating Morganella urinary tract infection with associated Morganella bacteremia. The patient has IgG up to 418, so IgG deficiency. Also had oral candidiasis. Bradford like this was day 5 of cefepime for patient's urinary tract infection. The patient received 2 infusions of IVIG. Continues to have nystatin swish and swallow, and he is on p.o. vancomycin for his Clostridium. The patient is going to continue p.o. vancomycin. We will see about setting him up for his IV antibiotics. We will discuss with Dr. Qureshi and see if we can get him to [facility]. cc: Jose Royal MD
[2019-05-30] MEDS ORDERED: LEVAQUIN PO ONE (11:20)
--- NOTE | 2019-05-30 12:37 | HEMO/ONC PROGRESS NOTE ---
DATE: 05/30/2019 SUBJECTIVE: Mr. Sow is up getting ready for the day this morning. He has had a good night's sleep and feels better and stronger today. His Perry catheter does remain in place. He had no significant events overnight. There is talk of him possibly going to a rehab today. OBJECTIVE: Vital Signs: Temperature 98.5 degrees, pulse rate 76, respiratory rate 18, blood pressure 135/74, O2 saturation 100%. He is on 2 L nasal cannula. He is in 0/10 pain. General: On physical examination, this is a chronically ill-appearing gentleman in no acute distress. Skin: Warm, dry, and intact. HEENT: Sclerae is anicteric. PERRLA. Oral mucosa is pink and moist. Cardiovascular: Normal S1, S2. Heart rate and rhythm is regular. Respiratory: No signs of respiratory distress. Lung sounds are clear to auscultation. Abdomen: Soft, nondistended. General tenderness to palpation. Neurological: Awake, alert and oriented x3. No focal motor deficits noted. Extremities: No lower extremity edema noted. LABORATORY: WBC 4.26, hemoglobin 8.9, hematocrit 27.8, platelet count 41,000. ASSESSMENT: 1. Relapsed follicular non-Hodgkin's lymphoma. 2. Septic shock due to urinary tract infection, resolved. 3. Right ureteral stone with right hydronephrosis, status post lithotripsy. 4. Acute kidney injury. 5. Thrombocytopenia, improving. 6. Hypogammaglobulinemia PLAN: The patient's platelet count is beginning to improve as it should over the next several days. This was most likely due to peripheral destruction. We will continue to monitor on an outpatient basis. We will follow up with the patient regarding his IVIG deficiency. The patient knows to call the office for a follow-up appointment. Dictated by JAKY Fine for Jacinto Mackey MD cc: Jacinto Mackey MD [facility] HEALTHLeslie
== END 2019-05-30 15:07 | DRG 853 ==
LOC: SUPCPDRO → ED 13:04 → SUATTDRO 17:40 → ICU 17:40 → 3S 05-26 17:55 → 2N 05-28 11:41
PROVIDERS: ATTEND Emergency Medicine

== ENCOUNTER 2019-08-07 13:57 | Day surgery (SDC) ==
[2019-08-06 13:53] LABS: CALCIUM 9.4 mg/dL (8.8-10.2); CREATININE 1.3 mg/dL (0.7-1.2); POTASSIUM 4.6 mmol/L (3.5-5.1)
[2019-08-06 13:57] LABS: HEMATOCRIT 32.5 % (42.0-52.0); HEMOGLOBIN 10.8 g/dL (14.0-18.0); MCH 32.9 PG (27-31); MCHC 33.2 g/dL (33-37); MCV 99.1 FL (81-99); MPV 9.9 FL (7.4-10.4); RBC 3.28 XMIL (4.7-6.1); RDW 14.8 % (11.5-14.5); WBC 4.56 X1000 (4.8-10.8)
[2019-08-07] MEDS ORDERED: KEFZOL 1 GM/D5W 2 GM/100 ML IVPB ONE (14:18)
[2019-08-07] MEDS ORDERED: LR 1,000 ML ONE (14:19)
[2019-08-07] MEDS ORDERED: GENTAMICIN 100 MG/NS 100 MG/100 ML IVPB ONE (14:19)
[2019-08-07] MEDS ORDERED: XYLOCAINE-MPF 2% ONE (14:56)
[2019-08-07] MEDS ORDERED: DIPRIVAN 1% ONE (14:56)
[2019-08-07] MEDS ORDERED: B & O 15A SUPP ONE (15:21)
[2019-08-07] MEDS ORDERED: FENTANYL ONE (15:42)
[2019-08-07] MEDS ORDERED: DECADRON ONE (15:51)
[2019-08-07] MEDS ORDERED: ZOFRAN ONE (15:51)
[2019-08-07] MEDS ORDERED: NS 1,000 ML ONE (17:34)
[2019-08-07] MEDS ORDERED: FLU VACCINE IM ONE (18:11)
[2019-08-07] MEDS ORDERED: BENADRYL IV PRN (18:45)
[2019-08-07] MEDS ORDERED: DITROPAN PO PRN (18:45)
[2019-08-07] MEDS ORDERED: NORCO-10 PO PRN (18:45)
[2019-08-07] MEDS ORDERED: BENADRYL LIQUID PO PRN (18:45)
[2019-08-07] MEDS ORDERED: LABETALOL IV PRN (18:45)
[2019-08-07] MEDS ORDERED: PROTONIX PO SCH (18:45)
[2019-08-07] MEDS ORDERED: PHENERGAN IV PRN (18:45)
[2019-08-07] MEDS ORDERED: NORCO-7.5 PO PRN (18:45)
[2019-08-07] MEDS ORDERED: B & O 15A SUPP PR PRN (18:45)
[2019-08-07] MEDS ORDERED: NORCO-5 PO PRN (18:45)
[2019-08-07] MEDS: NS 1,000 ML IV SCH (18:49)
[2019-08-07] MEDS: PERIDEX MT SCH (20:15)
[2019-08-07] MEDS: FLOMAX PO SCH (20:16)
[2019-08-07] MEDS: ZANTAC PO SCH (20:17)
[2019-08-07] MEDS: CULTURELLE PO SCH (20:17)
[2019-08-07] MEDS: COLACE PO SCH (20:17)
[2019-08-07] MEDS: PEPCID PO SCH (20:17)
--- NOTE | 2019-08-07 22:47 | OPERATIVE NOTE ---
PROCEDURE DATE: 08/07/2019 PREOPERATIVE DIAGNOSIS: Enlarged prostate with urinary retention. PREOPERATIVE DIAGNOSIS: Enlarged prostate with urinary retention. PROCEDURE PERFORMED: 1. Cystoscopic exam. 2. Transurethral resection of the prostate. 3. Placement of a suprapubic tube. ANESTHESIA: General via laryngeal mask. FINDINGS: Cystoscopic exam: Urethra greater than 25 Nigerian without stricture. Prostate: Coapting lateral lobes, elevated bladder neck. Mild median lobe. Bladder had grade 3 trabeculations, cellules and small diverticula throughout. There was marked bullous edema from the mid bladder down through the trigone, consistent with his indwelling Perry catheter. The ureteral orifices were not visualized. INDICATION FOR PROCEDURE: This 83-year-old male has a long history of obstructive and irritative voiding symptoms. He developed urinary retention. He has had a Perry catheter in place and is on tamsulosin 0.4 mg twice a day, and has had multiple voiding trials without success. DESCRIPTION OF PROCEDURE: After informed consent was obtained from the patient and him receiving IV antibiotics, he was taken the main OR cystoscopy room and placed in the supine position. General anesthesia via laryngeal mask was achieved. He was then placed in the low lithotomy position and prepped and draped in the usual sterile fashion for cystoscopic exam. A 21-Nigerian sheath cystoscope was passed through the patient's urethra, prostate and bladder, with findings noted above. The cystoscope was removed, leaving the bladder distended. A 25-Nigerian continuous- flow resectoscope sheath was placed. The thick Gyrus loop electrode was placed. There was much bullous edema in the bladder, and the ureteral orifices were not visualized. The resection was started at the 6 o'clock position, going from the level of the bladder neck, level of the verumontanum and proceeding in a counterclockwise direction up to the 2 o'clock position. Resection was then started back at the 6 o'clock position from the level of the bladder neck and level of the verumontanum, proceeding in a clockwise direction to the 10 o'clock position. Tissue from the anterior prostatic urethra was removed between the 2 o'clock and 10 o'clock positions from the level of the bladder neck and level of the verumontanum. Hemostasis was achieved with electrocautery. The chips were removed from the bladder with Ellik evacuators. The bladder neck was incised at the 6 o'clock position from the trigone down to just above the verumontanum, opening the channel wide open. Because of his retention, a suprapubic tube is going to be placed. The bladder was distended. The resectoscope was able to be pushed down to see the dome of the bladder. A stab incision was made 2 fingerbreadths above the pubic bone in the midline. The Amol suprapubic tube introducer was pushed through the stab incision and down into the bladder under direct vision. A 16-Nigerian Perry catheter was passed through the sheath, 10 mL sterile water were placed in the Perry balloon. The sheath was removed. The suprapubic tube was sutured to the skin with 0 silk. The suprapubic tube was plugged. The resectoscope was removed. A 22-Nigerian, 3-way Perry catheter was passed through the patient's urethra, prostate and into the bladder; 30 mL of sterile water were placed in the Perry balloon. The efflux was clear. Continuous bladder irrigation was started and the efflux remained clear. He tolerated the procedure well. Estimated blood loss 100 mL. He was taken to the recovery room in good condition. The suprapubic tube wound was covered with plain gauze and paper tape. cc: Bro Gonzales MD
[2019-08-08] MEDS: NS 1,000 ML IV SCH ×2 (03:31→05:58)
[2019-08-08 07:42] VITALS: BP 121/96
[2019-08-08 07:47] LABS: HEMATOCRIT 28.6 % (42.0-52.0); HEMOGLOBIN 9.5 g/dL (14.0-18.0); MCH 32.9 PG (27-31); MCHC 33.2 g/dL (33-37); MPV 10.1 FL (7.4-10.4); RBC 2.89 XMIL (4.7-6.1); RDW 14.2 % (11.5-14.5); WBC 7.59 X1000 (4.8-10.8)
[2019-08-08 07:57] LABS: CALCIUM 8.9 mg/dL (8.8-10.2); CREATININE 1.2 mg/dL (0.7-1.2); POTASSIUM 4.6 mmol/L (3.5-5.1)
[2019-08-08] MEDS: PEPCID PO SCH (08:38)
[2019-08-08] MEDS: PERIDEX MT SCH (08:38)
[2019-08-08] MEDS: ZANTAC PO SCH (08:39)
[2019-08-08] MEDS: CULTURELLE PO SCH (08:39)
[2019-08-08] MEDS: COLACE PO SCH (08:39)
[2019-08-08] MEDS: FLOMAX PO SCH (08:40)
[2019-08-08] MEDS ORDERED: REMERON PO SCH (09:00)
[2019-08-08] MEDS ORDERED: FOLIC ACID PO SCH (09:00)
[2019-08-08] MEDS ORDERED: PROSCAR PO SCH (09:00)
[2019-08-08] MEDS ORDERED: LIPITOR PO SCH (09:00)
[2019-08-08] MEDS ORDERED: NORVASC PO SCH (09:00)
== END 2019-08-08 09:07 | disposition home or self-care (01) ==
LOC: 4N 13:57 → OPS 13:57 → PAT 13:57 → OPS 08-08 08:30
PROVIDERS: ATTEND Urology
PROC: UR.TURP (2019-08-07 15:33)

== ENCOUNTER 2019-10-12 18:14 | Inpatient (IN) ==
[2019-10-12] MEDS ORDERED: NS 1,000 ML IV ONE (18:36)
[2019-10-12] MEDS ORDERED: MAXIPIME 2 GM/NS 2 GM/100 ML IVPB IV ONE (18:41)
--- NOTE | 2019-10-12 18:59 | Diag Imaging Result Doc PS360 ---
CHEST-2 VIEWS - 10/12/2019 INDICATION: NEUTROPHILC FEVER COMPARISON: 09/15/2019 FINDINGS: Stable left chest port in good position. Stable right hemidiaphragm elevation. There is scattered linear atelectasis in the lung bases similar to prior. No dense consolidations. Heart size remains borderline. IMPRESSION: Nonspecific findings. No significant change from prior. Electronically signed by Silver Paez 10/12/2019 6:57 PM
[2019-10-12 20:10] LABS: BASO# 0.01 X1000 (0.0-0.2); BASO% 0.7 % (0.0-0.8); EOS# 0.02 X1000 (0.0-0.7); EOS% 1.4 % (0.0-10.0); HEMOGLOBIN 8.6 g/dL (14.0-18.0); LYMPH# 0.45 X1000 (1.2-3.4); LYMPH% 31.7 % (20.5-51.1); MCH 34.5 PG (27-31); MCHC 33.1 g/dL (33-37); MCV 104.4 FL (81-99); MONO# 0.32 X1000 (0.11-0.59); MONO% 22.5 % (1.7-9.3); MPV 10.6 FL (7.4-10.4); NEUT# 0.62 X1000 (1.4-6.5); NEUT% 43.7 % (42.2-75.2); PLT 97 X1000 (130-400); RBC 2.49 XMIL (4.7-6.1); RDW 16.2 % (11.5-14.5); WBC 1.42 X1000 (4.8-10.8)
[2019-10-12 20:11] LABS: URINE SOURCE CATH
[2019-10-12 20:16] LABS: INR 1.07
[2019-10-12 20:17] LABS: PTT 32.5 Seconds (22.3-41.8)
[2019-10-12 20:25] LABS: BILIRUBIN URINE NEGATIVE (NEGATIVE); BLOOD URINE MODERATE (NEGATIVE); COLOR YELLOW; GLUCOSE URINE NEGATIVE (NEGATIVE); KETONE URINE NEGATIVE (NEGATIVE); LEUKOCYTES URINE LARGE (NEGATIVE); NITRITE URINE NEGATIVE (NEGATIVE); PROTEIN URINE 200 mg/dL (NEGATIVE); SP GRAVITY URINE 1.012; TURBIDITY URINE HAZY (CLEAR); UROBILINOGEN URINE NORMAL (NORMAL)
[2019-10-12 20:29] LABS: CALCIUM 9.2 mg/dL (8.8-10.2); CREATININE 1.2 mg/dL (0.7-1.2); MAGNESIUM 1.7 mg/dL (1.5-2.7); POTASSIUM 4.3 mmol/L (3.5-5.1)
[2019-10-12 20:44] LABS: ANISOCYTOSIS 1+; BANDS 1 % (0-1); EOS 3 % (1-10); LARGE PLATELETS OCCASIONAL; LYMPHS 27 % (21-51); MONO 15 % (1-9); SEGS 45 % (42-75)
[2019-10-12 20:44] LABS: UR EPITHELIAL CELLS <10 /HPF (<10); URINE BACTERIA 3+ /HPF; URINE RBC 20-40 /HPF (<10); URINE WBC TNTC /HPF (<10)
[2019-10-12] MEDS ORDERED: TYLENOL PO ONE (20:51)
[2019-10-12 20:56] LABS: URINE CASTS NONE SEEN; URINE CRYSTALS NONE SEEN; URINE SMALL ROUND CELLS TRANS PRESENT; URINE YEAST NONE SEEN
--- NOTE | 2019-10-12 21:19 | PROVIDER DOCUMENTATION ---
This chart was entered by Ludivina Shirley Scribe, acting as scribe for Nilson Yanez MD. HPI-Fever - General Chief Complaint: Fever Stated Complaint: CHEMO PT.-FEVER, CONFUSION Time Seen by Provider: 10/12/19 18:34 Source: patient, family Allergies/Adverse Reactions: Patient Allergies Allergy/AdvReac Type Severity Reaction Status Date / Time linezolid [From Zyvox] Allergy Intermediate leukopenia Verified 09/10/19 09:36 piperacillin [From Zosyn] Allergy Intermediate RASH Verified 09/10/19 09:36 tazobactam [From Zosyn] Allergy Intermediate RASH Verified 09/10/19 09:36 Home Medications: Home Medication List Medication Instructions Recorded Confirmed Last Taken Type Amlodipine [Norvasc] 2.5 mg PO DAILY 11/20/18 10/12/19 09/14/19 08:00 History Folic Acid 1 tab PO DAILY 04/18/19 10/12/19 09/14/19 08:00 History Ranitidine HCl [Zantac] 1 tab PO BID 04/18/19 10/12/19 09/14/19 21:00 History Lactobacillus Acidophilus 460 cap PO BID 05/27/19 10/12/19 09/14/19 21:00 History [Florajen] Pantoprazole [Protonix] 40 mg PO Q24H tab 05/30/19 10/12/19 09/14/19 21:00 Rx Mirtazapine [Remeron] 15 mg PO DAILY 08/06/19 10/12/19 09/14/19 08:00 History Acetaminophen [Tylenol] 1 dose PO PRN PRN 09/10/19 10/12/19 09/14/19 21:00 Histo ry Donepezil [Aricept] 1 dose PO DAILY 09/10/19 10/12/19 09/14/19 08:00 History Tramadol [Ultram] 1 dose PO PRN PRN 09/10/19 10/12/19 09/14/19 21:00 History Hydrocodone/APAP 10 mg/325 mg 1 ea PO Q6H PRN PRN #20 tab 09/15/19 10/12/19 Unknown Rx [Neola-10] Ondansetron HCl [Zofran] 4 mg PO Q4HR PRN #10 tab 09/15/19 10/12/19 Unknown Rx Allopurinol 100 mg PO DAILY 10/12/19 10/12/19 Unknown History Vitamin B Complex 1 tab PO DAILY 10/12/19 10/12/19 Unknown History Zinc Sulfate 220 mg PO BID 10/12/19 10/12/19 Unknown History - History of Present Illness-Fever Nature of Presenting Problem: pt is an 83 yowm presenting w/family to er w/cc 101 fever at home 1 hr ago. family sts Dr. Mackey referred pt to er. pt has had poor appetite, not ambulating as usual and more confused and has been in bed all day. pt has hx of diffuse large cell B Lymphoma, is on 2nd round of chemo. had last chemo on sunday. pt family reports pt was fine and doing typical activities 3 days ago. pt is oriented to place, person but disoriented to president and year. pt has hx of HTN, no chf, stents, copd or cad. former smoker. Fever Severity/Quality: reports: greater than 100.5 F (at home) Onset/Duration: reports: 1 hour ago Timing: reports: still present Severity: reports: mild Context: reports: confusion, cancer-chemotherapy Recent Illness?: reports: none Fever Therapy FOOD SERVICE STEWARD: Initiated none Cognitive Baseline: alert but confused Modifying Factors: improves with: nothing Associated Symptoms: reports: fever/chills - Glascow Coma Score Best Eye Response ([place]): (4) open spontaneously Best Verbal Response ([place]): (4) confused conversation Best Motor Response ([place]): (6) obeys commands [place] Total: 14 Review of Systems - Adult - REVIEW OF SYSTEMS - ADULT Constitutional: reports: see HPI, fever, other (not ambulating as usual). denie s: chills, fatique, night sweats Eyes: reports: no symptoms reported Ears, Nose, Mouth & Throat: reports: no symptoms reported Cardiovascular: reports: no symptoms reported Respiratory: reports: no symptoms reported Gastrointestinal: reports: see HPI, poor appetite. denies: abdominal pain, diarrhea, vomiting Genitourinary: reports: no symptoms reported Musculoskeletal: reports: no symptoms reported Integumentary: reports: no symptoms reported Neurological: reports: see HPI, other (more confused than baseline). denies: dizziness/vertigo, headache/migraines, loss of balance Psychiatric: reports: no symptoms reported Endocrine: reports: no symptoms reported Hematologic/Lymphatic: reports: no symptoms reported Allergic/Immunologic: reports: no symptoms reported All Other Systems: Reviewed and Negative Past History - Adult - PAST MEDICAL HISTORY-ADULT Review of Records: reports: Nursing Assessment Review, Medications Reviewed, Social history reviewed & non-contributory. Major Childhood Illnesses: reports: denies history Cardiovascular: reports: HTN, hyperlipidemia Respiratory: reports: denies history Gastrointestinal: reports: denies history Obstetrical/Gynecological: reports: denies history Genitourinary: reports: kidney disease, kidney stones Musculoskeletal: reports: denies history Neurological: reports: denies history Psychiatric: reports: denies history Endocrine/Immune: reports: Lymphoma Other Conditions: reports: denies history - PRIOR SURGERIES/PROCEDURES Surgical/Procedure History: reports: reviewed, not pertinent, indwelling device, hernia repair, other (lithrotripsy; cystoscopy) - IMMUNIZATION STATUS Childhood Immunizations: See Nurse Assessment Flu Vaccine: See Nurse Assessment - FAMILY HISTORY Family History: reviewed, not pertinent - SOCIAL HISTORY Smoking: quit greater than 1 year, other (former smoker) Substance Use: none/never Physical Exam-General - PHYSICAL EXAM-ADULT Initial Vital Signs Reviewed: Yes - CONSTITUTIONAL General Appearance: no apparent distress, other (a&o x2). negative: cachetic, anxious, lethargic - EYES Eyes: PERRL/EOMI, pink conjunctivae - HEAD, EARS, NOSE, MOUTH & THROAT HENMT: normocephalic/atraumatic, moist mucous membranes - NECK Neck: non-tender, full range of motion, supple, normal inspection - RESPIRATORY Respiratory: chest non-tender, lungs clear, normal breath sounds - CARDIOVASCULAR Cardiovascular: normal peripheral pulses, regular rate, rhythm - GASTROINTESTINAL (ABDOMEN) Abdominal Exam: normal bowel sounds, non tender, soft, no organomegaly, no pulsatile mass, other (suprapubic port a cath in place w/no drainage and intact) - MUSCULOSKELETAL Back Exam: normal inspection Extremity: normal range of motion, non-tender, normal inspection - SKIN Integumentary: normal color, normal turgor, warm/dry - NEUROLOGIC Neurologic: grossly normal, no motor/sensory deficits - PSYCHIATRIC Psych/Mental Status: normal mood/affect. negative: oriented x 3 (a&ox2), anxious, disheveled, depressed affect Progress - PLAN OF CARE/RESULTS Progress/Plan/Lab Results: Vital Signs - 8 hr 10/12/19 18:21 Temperature 99.9 F H Pulse Rate 87 Respiratory Rate 16 Blood Pressure 108/63 O2 Sat by Pulse Oximetry 93 L Laboratory Results - last 24 hr 10/12/19 10/12/19 10/12/19 19:41 19:41 19:41 WBC 1.42 L RBC 2.49 L Hgb 8.6 L Hct 26.0 L MCV 104.4 H MCH 34.5 H MCHC 33.1 RDW Std Deviation 16.2 H Plt Count 97 L MPV 10.6 H Neut % (Auto) 43.7 Lymph % (Auto) 31.7 [place] % (Auto) 22.5 H Eos % (Auto) 1.4 Baso % (Auto) 0.7 Neut # (Auto) 0.62 L Lymph # (Auto) 0.45 L [place] # (Auto) 0.32 Eos # (Auto) 0.02 Baso # (Auto) 0.01 Segmented Neutrophils 45 Band Neutrophils 1 Lymphocytes 27 Monocytes 15 H Eosinophils 3 Metamyelocytes 2.0 Myelocytes 4.0 Atypical Lymphocytes 3.0 Large Platelets OCCASIONAL Anisocytosis 1+ PT 14.0 INR 1.07 PTT (Actin FS) 32.5 Sodium 134 L Potassium 4.3 Chloride 95 L Carbon Dioxide 28 Anion Gap 11 BUN 17 Creatinine 1.2 Estimated GFR/1.73 m2 58 BUN/Creatinine Ratio 14 Glucose 145 H Calculated Osmolality 272 Calcium 9.2 Magnesium 1.7 Urine Source Urine Color Urine Turbidity Urine pH Ur Specific Sod Urine Protein Ur Glucose (Stick) Ur Ketones (Stick) Urine Blood Urine Nitrite Urine Bilirubin Urobilinogen Dipstick Urine Leukocytes Urine WBC (Auto) Urine RBC (Auto) U Epithel Cells (Auto) Urine Bacteria (Auto) Urine Crystals Small Round Cells Urine Casts Urine Yeast-like Cells 10/12/19 19:59 WBC RBC Hgb Hct MCV MCH MCHC RDW Std Deviation Plt Count MPV Neut % (Auto) Lymph % (Auto) [place] % (Auto) Eos % (Auto) Baso % (Auto) Neut # (Auto) Lymph # (Auto) [place] # (Auto) Eos # (Auto) Baso # (Auto) Segmented Neutrophils Band Neutrophils Lymphocytes Monocytes Eosinophils Metamyelocytes Myelocytes Atypical Lymphocytes Large Platelets Anisocytosis PT INR PTT (Actin FS) Sodium Potassium Chloride Carbon Dioxide Anion Gap BUN Creatinine Estimated GFR/1.73 m2 BUN/Creatinine Ratio Glucose Calculated Osmolality Calcium Magnesium Urine Source CATH Urine Color YELLOW Urine Turbidity HAZY Urine pH 7.0 Ur Specific Sod 1.012 Urine Protein 200 A Ur Glucose (Stick) NEGATIVE Ur Ketones (Stick) NEGATIVE Urine Blood MODERATE A Urine Nitrite NEGATIVE Urine Bilirubin NEGATIVE Urobilinogen Dipstick NORMAL Urine Leukocytes LARGE A Urine WBC (Auto) TNTC A Urine RBC (Auto) 20-40 A U Epithel Cells (Auto) <10 Urine Bacteria (Auto) 3+ Urine Crystals NONE SEEN Small Round Cells TRANS PRESENT Urine Casts NONE SEEN Urine Yeast-like Cells NONE SEEN Orders Category Date Time Status Nursing [[facility] [place] [facility] Communication Order] DIRECTED Care 10/12/19 18:38 Active CHEST-2 VIEWS [RAD] Stat Exams 10/12/19 18:35 Completed BASIC METABOLIC PANEL [CHEM] Stat Lab 10/12/19 19:41 Completed BLOOD CULTURE [BLDCUL] Stat Lab 10/12/19 19:43 Results CBC WITH ELECTRONIC DIFF [HEME] Stat Lab 10/12/19 19:41 Completed MAGNESIUM [CHEM] Stat Lab 10/12/19 19:41 Completed PROTIME WITH INR [COAG] Stat Lab 10/12/19 19:41 Completed PTT [COAG] Stat Lab 10/12/19 19:41 Completed URINALYSIS W/POSS RFLX CULT [URINALYSIS] Stat Lab 10/12/19 19:59 Completed URINE CULTURE [RM] Routine Lab 10/12/19 19:59 Received URINE MANUAL MICROSCOPIC [URINALYSIS] Stat Lab 10/12/19 19:59 Completed 0.9% Sodium Chloride Inj [Ns] 1,000 ml Med 10/12/19 18:36 Discontinued IV 999 mls/hr Acetaminophen [Tylenol] Med 10/12/19 20:51 Discontinued 650 mg PO NOW ONE CefEPIME 2 GM/NS [Maxipime 2 gm/Ns] Med 10/12/19 18:41 Discontinued 2 gm in 100 ml IV NOW Result Diagrams: 10/12/19 19:41 10/12/19 19:41 - REASSESSMENT Reassessment #1 Status: other (SPOKE TO HOSPITALIST;Y WILL ADMIT.) - XRAY 1 XRAY Study: Chest Impression: See EMR Report (CHEST-2 VIEWS - 10/12/2019 INDICATION: NEUTROPHILC FEVER COMPARISON: 09/15/2019 FINDINGS: Stable left chest port in good position. Stable right hemidiaphragm elevation. There is scattered linear atelectasis in the lung bases similar to prior. No dense consolidations. Heart size remains borderline. IMPRESSION: Nonspecific findings. No significant change from prior. Electronically signed by Silver Paez 10/12/2019 6:57 PM) Comparison with other Films: no changes Departure - Departure Date of Disposition Decision: 10/12/19 Time of Disposition Decision: 21:18 DIAGNOSIS: UTI (urinary tract infection), AMS (altered mental status), Fever and neutropenia Disposition: ADMITTED INPATIENT 09 Certified Medical Emergency: Emergent Condition: Fair Referrals and Follow-Ups: Jacinto Mackey MD [Primary Care Provider] - - Critical Care Note This patient required my direct & personal management of CC.: No Attestation - Physician/ [place] Attestation Patient care was provided by Advanced Practice Provider:: No The physician spent face to face time with patient:: Yes Advanced Practice Provider documentation review:: Supervising physician onsite and consulted in the evaluation and care of this patient. The physician did have a face to face encounter with the patient. This chart was documented by the indicated scribe, (Ludivina Shirley Scribe) and accurately reflects the services I performed and decisions made by me, Hugo Yanez MD, as attested by the provider's signature.
[2019-10-12] MEDS ORDERED: TYLENOL PO PRN ×2 (22:45)
[2019-10-12] MEDS ORDERED: NORCO-10 PO PRN (22:45)
[2019-10-12] MEDS ORDERED: ZOFRAN IV PRN (22:45)
[2019-10-12] MEDS ORDERED: MAXIPIME 2 GM/NS 2 GM/100 ML IVPB IV SCH (22:45)
[2019-10-12] MEDS ORDERED: ZOFRAN PO PRN (22:45)
[2019-10-12] MEDS ORDERED: VANCOMYCIN IV PER PHARMACY MISC SCH (22:45)
[2019-10-12] MEDS ORDERED: VANCOMYCIN 1 GM/NS 1 GM/250 ML IVPB IV ONE (22:45)
[2019-10-12] MEDS ORDERED: VANCOMYCIN 2,100 MG in NS 500 ML IV ONE (23:00)
[2019-10-12] MEDS: LOVENOX SUBQ SCH (23:20)
[2019-10-12] MEDS: NS 1,000 ML IV SCH (23:20)
--- NOTE | 2019-10-12 23:59 | HISTORY AND PHYSICAL ---
PRIMARY CARE PROVIDER: Patient of Dr. Mackey. REASON FOR ADMISSION: Fever and confusion today over the last 24 hours. HISTORY OF PRESENT ILLNESS: Mr. Anthony Sow is an 83-year-old man with large B-cell lymphoma who last received chemotherapy a week ago. He has a history of BPH and status post TURP and suprapubic cystostomy. Also has a history of hypertension and I believe gout. The patient was admitted primarily today because of a fever with T-max of 101 degrees. No chills, but became weak over the last 18 hours with simultaneous confusion. He was brought to the ER for further evaluation of the aforementioned problems. Since he has received fluid, his sensorium has improved significantly. The patient also complains of cough for the last 2 to 3 weeks. Took doxycycline without any relief. He states that his breathing has become low, slightly short of breath with this. He has chronic lower extremity leg swelling, but denies any PND, orthopnea, or chest pain or any other cardiorespiratory symptoms. No GI complaints. He has a suprapubic cystostomy in place but denies any lower abdominal pains. No cloudy urine or hematuria. REVIEW OF SYSTEMS: Notable for generalized weakness. No arthralgia or rash except for a chronic rash on the medial aspect of his left foot. He says it is nonpruritic. Positive findings per HPI. ALLERGIES: Linezolid, Zosyn and tazobactam. HOME MEDICATIONS: Allopurinol 100 mg daily, Aricept 5 mg daily, lactobacillus capsules twice a day, folic acid 1 mg daily, Norvasc 2.5 mg daily, Remeron 15 mg daily, Tylenol 500 mg p.r.n., tramadol 1 tablet p.r.n., vitamin B complex 1 tablet daily, Zantac 150 mg b.i.d., zinc sulfate 220 mg b.i.d., Zofran 4 mg q.4 p.r.n., hydrocodone 10 mg q.6 p.r.n., Protonix 40 mg daily. SURGICAL HISTORY: He has had a med port placed, a TURP done, and had lithotripsy in the past. SOCIAL HISTORY: Does not smoke, drink, or use drugs. , lives with his . FAMILY HISTORY: Notable for breast cancer, kidney cancer, but no diabetes or heart disease in first-degree relatives. LABORATORY WORK: Notable for white count 1000, hemoglobin and hematocrit 8 and 26, MCV 104, platelet count 97,000 with 43% neutrophils. Sodium 134, BUN 17, creatinine 1.2, glucose 145. PT, PTT are normal. Urinalysis, 3+ bacteria, tqi-wjecxqlr-bc-count WBCs and large leukocytes. Chest film just showed nonspecific findings noted. PHYSICAL EXAMINATION: VITAL SIGNS: Blood pressure is 126/70, temperature 99.9 degrees, respiratory rate is 20 and pulse is 83. GENERAL: He is an elderly man not in acute distress. He is A and O x3. Normal mood and affect. HEENT: Head is normocephalic, atraumatic. Eyes, YASMINE, EOMI. He is anicteric and mildly pale. ENT and oropharynx exam just shows an aphthous ulcer on the left aspect of his cheek about 0.5 cm in diameter. No cyanosis. NECK: Supple. No JVD or carotid bruit. No thyromegaly. CHEST: Few bibasilar crepitations heard, otherwise good air entry in both lung alvarado. CARDIOVASCULAR SYSTEM: First and second heart sounds are heard. No gallops, murmurs, rubs. Rhythm is regular. ABDOMEN: Slightly protuberant and soft with suprapubic cystostomy in place with no surrounding erythema or unusual exudation from the ostomy site. RECTAL: Deferred. Bowel sounds are hypoactive. No mass or organomegaly. No tenderness. EXTREMITIES: Patient has 1+ pitting edema in both lower extremities. Distal pulse volumes are good, regular, symmetrical. NEUROLOGICAL: No gross focal deficits. No asterixis or tremors. SKIN: Intact. No breakdown, lesions or erythema. Good turgor noted. MUSCULOSKELETAL: Exam is grossly normal. ASSESSMENT: 1. Neutropenic fever, probably likely secondary to urinary tract infection. Cannot rule out coexisting pneumonia. 2. Large B-cell lymphoma. 3. Hypertension. 4. Pancytopenia secondary to probable chemotherapy. 5. Benign prostatic hypertrophy. 6. Hypertension. 7. Hyperlipidemia. PLAN: The patient will be started on Maxipime 2 g q.12. I added on vancomycin dose just because the patient has a communication, i.e. cystostomy to the skin area. Usually gram negatives are most primary concerns, but because of the ostomy site I will broaden our coverage to include Staphylococcus MRSA. We will await urine cultures and modify treatment accordingly. Avoid any potentially neurotoxic medications for now. Hydrate patient optimally. I have ordered a CT thorax to rule out the possibility of coexisting pneumonia based on his complaints of cough productive of whitish sputum, his mild shortness of breath, his failure to respond to doxycycline and bibasilar crepitations heard on exam. We will consult Dr. Mackey to see patient for further input. cc: MD Jacinto Kiran MD MTDD
--- NOTE | 2019-10-13 07:18 | Diag Imaging Result Doc PS360 ---
EXAM: CT THORAX W/O CONTRAST 10/12/2019 HISTORY: fever neutropenia TECHNIQUE: This exam was performed using automated exposure control, adjustment of mA or kV according to patient size, and/or use of iterative reconstruction technique. COMMENT: The blood pool and the aorta is somewhat diminished and measures less than 35 Hounsfield units. This may be indicative of anemia. It has diminished from over 37 Hounsfield units on 02/11/2018. The ascending aorta is slightly ectatic measuring almost 4.2 cm in diameter. This has not changed significantly since 11/20/2018 02/11/2018. There are extensive calcifications in the coronary arteries particularly in the left anterior descending. There is no evidence of significant adenopathy. There are no abnormal fluid collections. Consolidation in the posterior costophrenic sulcus of the right lower lobe was worse at the time the previous abdominal study. There is a Port-A-Cath on the left with its tip in the superior vena cava. The regional skeleton is stable in appearance. There are some platelike opacities in the right lower lobe as well. There are number of nodules bilaterally which were apparently present previously. IMPRESSION: Persistent atelectasis versus pneumonia in the right lower lobe, which is nonetheless improved since 11/20/2018. Stable minimal ectasia of the ascending thoracic aorta. Possible anemia. Electronically signed by Tavo Esquivel 10/13/2019 7:15 AM
[2019-10-13 07:24] LABS: BASO# 0.01 X1000 (0.0-0.2); BASO% 0.9 % (0.0-0.8); EOS# 0.03 X1000 (0.0-0.7); EOS% 2.7 % (0.0-10.0); HEMATOCRIT 23.8 % (42.0-52.0); HEMOGLOBIN 7.5 g/dL (14.0-18.0); IMM GRAN# 0.06 X1000 (0.0-0.04); IMM GRAN% 5.5 % (0.0-0.5); LYMPH# 0.35 X1000 (1.2-3.4); LYMPH% 31.8 % (20.5-51.1); MCH 33.2 PG (27-31); MCHC 31.5 g/dL (33-37); MCV 105.3 FL (81-99); MONO# 0.32 X1000 (0.11-0.59); MONO% 29.1 % (1.7-9.3); MPV 10.7 FL (7.4-10.4); PLT 82 X1000 (130-400); RBC 2.26 XMIL (4.7-6.1)
[2019-10-13 07:35] LABS: NEUT# 0.33 X1000 (1.4-6.5)
[2019-10-13 07:40] LABS: AGAP 11; BUN 17 mg/dL (8-22); CALCIUM 8.6 mg/dL (8.8-10.2); CHLORIDE 98 mmol/L (98-107); COSMO 278; CREATININE 1.1 mg/dL (0.7-1.2); ESTIMATED GFR > 60; GLUCOSE 143 mg/dL (70-104); MAGNESIUM 1.8 mg/dL (1.5-2.7); SODIUM 137 mmol/L (136-145); TCO2 28 mmol/L (25-35)
[2019-10-13] MEDS: CULTURELLE PO SCH ×2 (09:09→20:35)
[2019-10-13] MEDS: ZYLOPRIM PO SCH (09:10)
[2019-10-13] MEDS: FOLIC ACID PO SCH (09:10)
[2019-10-13] MEDS: PEPCID PO SCH ×2 (09:10→20:35)
[2019-10-13] MEDS ORDERED: GRANIX SUBQ ONE (13:30)
--- NOTE | 2019-10-13 14:57 | PROGRESS NOTE ---
DATE: 10/13/2019 SUBJECTIVE: This morning, Mr. Sow refers to be doing well. No new complaints, except that he has been coughing. OBJECTIVE: Vital Signs: Blood pressure is 143/92, pulse of 79, respirations 18, temperature 99.2 degrees, the patient is saturating 97% on room air. General: Mr. Sow is an 83-year-old, elderly, gentleman. He is in bed. No distress. He looks well nourished. HEENT: Mucosa is pink and moist. Anicteric. Acyanotic. Neck: Supple. Chest: Good air entry bilaterally. Few crackles in the posterior lung alvarado, more so to the right posterior lung. Cardiovascular: Regular rate and rhythm. No murmurs, no rubs, no gallops. GI: Abdomen is soft, nontender. Bowel sounds are present. There is a suprapubic catheter in place. Extremities: No pedal edema. HOME HEALTH CARE COORDINATOR: The patient is awake, alert, oriented. LABORATORY DATA: Laboratory data has been reviewed. WBC is 1.10, hemoglobin 7.5, platelet count of 82,000. Absolute neutrophil count automated is 330. Urinalysis is slightly pathological. The patient has had multiple urinary cultures positive in the past. IMAGING STUDIES: A chest x-ray which was done showed nonspecific findings. A CT scan of the chest shows persistent atelectasis versus pneumonia in the right lower lobe, which is nonetheless improved from the one in November. ASSESSMENT: 1. Neutropenic fever. 2. Right lower lobe atelectasis versus pneumonia. 3. Gram-negative lurdes in the urine. Unsure if this contributed to his presenting symptoms of fever and confusion. 4. Pancytopenia secondary to chemotherapy side effects. 5. Diffuse B-cell lymphoma of the prostate. Patient on R-CHOP regime with Dr Mackey 6. Benign prostatic hypertrophy with voiding symptoms. The patient is status post suprapubic catheter placement. For now, we are going to continue with the current antimicrobial coverage, cefepime and vancomycin, fluid resuscitation. Continue to monitor his numbers, and transfuse blood products as needed. The patient is being seen by Hematology/Oncology, and we will also consult Infectious Disease and Urology to help with the management of this patient. cc: MD JACK Russell
[2019-10-13] MEDS ORDERED: MERREM 2 GM in NS 50 ML IV SCH ×2 (15:15→15:30)
[2019-10-13] MEDS: NS 1,000 ML IV SCH (16:23)
[2019-10-13] MEDS: MERREM 2 GM in NS 100 ML IV SCH (16:23)
--- NOTE | 2019-10-13 16:51 | INFECTIOUS DISEASE PROGRESS NO ---
DATE: 10/13/2019 CONCLUSION: The patient is admitted the hospital with fever. He has a gram-negative lurdes urinary tract infection and also possible pneumonia and either one or both of these infections could be causing the patient's fever. The patient's chart says that he is allergic to Zosyn. I discussed this with the patient's daughter and she said that when he got Zosyn, he did not have a rash, all that happened was his platelets and white blood cells decreased a little bit. The patient is on cefepime and is doing well and he is going to be on meropenem and he should do well with that antibiotic also. I have also requested that the nurse should observe the patient during the first dose of meropenem. Also the patient's suprapubic tube site is erythematous suggesting that there is cellulitis present there. RECOMMENDATIONS: I have requested that a culture be taken from around the suprapubic tube site. DISCUSSION: The past 2 days the patient has had fever. He says he is a little bit constipated. He did not have a cough or dysuria. His laboratory data show CBC with a white count of 1100 and an absolute neutrophil count of 330, hemoglobin 7.5, platelet count is 82,000. Creatinine is 1.1. GFR is greater than 60. Urinalysis showed white cells and bacteria. Urine culture grew a gram- negative lurdes. Blood cultures are pending. Patient's CT scan shows a right lower lobe pneumonia/atelectasis. PAST MEDICAL HISTORY/REVIEW OF SYSTEMS: Eyes and ears: He says he can see and hear okay. Neck: No stiffness. Pulmonary: No cough or shortness of breath. Cardiac: No chest pain or palpitations. : No dysuria but the patient does have a suprapubic tube in place. GI: The patient says in the past few days he has not been able to pass a stool. He is not vomiting. Neurologic: No seizures, no loss of motor or sensory function . Integument: No rash PREVIOUS HOSPITALIZATIONS AND OPERATIONS: He has had surgery for renal calculi. He has been admitted with pneumonia and sepsis. He has had placement of a suprapubic tube. He has also had a hernia repair and prostate surgery. MEDICAL DISEASES: Positive for obesity, hypertension and lymphoma, dementia. INFECTIOUS DISEASE HISTORY: Positive for pneumonia, urinary tract infection and sepsis. FAMILY HISTORY: Positive for cancer, negative for diabetes mellitus and heart attack. SOCIAL HISTORY[place] . He does not have any pets. He does not smoke cigarettes, drink alcoholic beverages or abuse drugs. HOME MEDICATIONS: Include allopurinol, Norvasc, Colace, Aricept, hydrocodone, Zofran, Protonix, Zantac, Ultram. ALLERGIES: Adverse reaction linezolid the reaction was leukopenia, which is not an allergy it is an adverse reaction. Zosyn as I mentioned above says that the patient had a rash but the daughter said he did not have a rash. The Zosyn decreased his platelet count and his white blood cell count. PHYSICAL EXAMINATION: Vital Signs: Temperature is 99.2 degrees, pulse 79, respirations 18, blood pressure is 143/92, patient is 5 feet 11 inches tall, weighs 185 pounds. General: This is an ill- appearing elderly male. He is in no acute distress. Head/eyes/ears/nose/throat: He can hear my spoken words and see near objects. There is no drainage from the nose or ears. I did not notice any white patches on his tongue. Neck: No meningismus. Lungs: Clear to auscultation. Cardiovascular: Heart rate is regular. Abdomen: Soft and nontender. Suprapubic site is erythematous but there is no purulence. Neurologic: The patient is alert. He can move his extremities. There is no tremor. His memory as regarding his medical history was decreased. There is no tremor. Integument: No rash noted. Thank you for the consult. cc: Frandy Qureshi MD
--- NOTE | 2019-10-13 17:07 | HEMO/ONC CONSULTATION ---
DATE: 10/13/2019 REASON FOR CONSULTATION: This is a known patient of ours for the treatment of diffuse large B- cell lymphoma. HISTORY OF PRESENT ILLNESS: Mr. Sow is an 83-year-old male who is undergoing treatment for diffuse large B-cell lymphoma, who was most recently treated with chemotherapy one week ago on 10/06/2019. Patient's family called our on-call service in the evening with complaints of fever and confusion. The patient has not had this with prior doses of chemotherapy. The patient also has a history of BPH and is status post TURP and supra- pubic cystostomy a few months ago. Family states his temperature got up to 101 degrees at home. He had no chills, but was very weak and had confusion. Since receiving IV fluids and antibiotics the patient's cognitive state has improved. The patient was awake and eating breakfast. He had no complaints. He states his appetite is good. He was alert, and oriented x3. His daughter was at bedside. PAST MEDICAL HISTORY: Relapsed non-Hodgkin's lymphoma stage IV, hypertension, hyperlipidemia, kidney stones, BPH with obstruction, history of left-sided nephrolithiasis, pulmonary embolism in January 2018, and November 2018. No longer on Xarelto therapy. PAST SURGICAL HISTORY: ESWL, hernia repair and suprapubic cystostomy. SOCIAL HISTORY: The patient denies tobacco or illicit drug use and alcohol. ALLERGIES: Linezolid, zosyn (thrombocytopenia), tazobactam. REVIEW OF SYSTEMS: Pertinent positives are discussed in the HPI. HOME MEDICATIONS: Allopurinol, amlodipine, Colace, donepezil, folic acid, [place] 10, lactobacillus acidophilus, mirtazapine,pantoprazole, ranitidine, tramadol ,vitamin B complex, and zinc sulfate. VITAL SIGNS: Temperature 99.1 degrees, pulse rate 76, respiratory rate 18, blood pressure 115/60, O2 saturation 92% on room air. He is in 0/10 pain. PHYSICAL EXAMINATION: General: The patient does not appear in any acute distress. HEENT: Sclerae is anicteric. PERRLA. Oral mucosa is slightly dry. Respiratory: Lung sounds are clear to auscultation. Normal respiratory effort. Cardiovascular: Normal S1, S2. Heart rate and rhythm normal. No murmurs noted. Abdomen slightly protuberant, soft. Suprapubic catheter in place. Extremities: +1 pitting edema in bilateral lower extremities. Neurologic: Awake, alert, and oriented x3. No focal motor deficits noted. Follows commands appropriately. Skin: Intact. No ecchymosis, petechiae, or rashes noted. RADIOLOGY: CT thorax shows persistent atelectasis versus pneumonia in the right lower lobe. Chest x-ray shows no significant findings. LABORATORY: WBC 1.1, hemoglobin 7.5, hematocrit 23.8, platelet count 82,000. ANC 0.33, creatinine 1.1. Positive UA. Gram-negative rods in urine culture. ASSESSMENT: 1. Neutropenic fever secondary to urinary tract infection. 2. Diffuse large B-cell lymphoma, currently undergoing treatment with Rituxan, Cytoxan and Adriamycin and vincristine. 3. Macrocytic anemia. The patient's hemoglobin and hematocrit 1 week ago in the clinic was 10 and 30. His last B12 and folate were adequate. He is not a candidate for procrit. We will continue to monitor. 4. Possible pneumonia. Continue management per medical management. 5. Thrombocytopenia: This is most likely due to chemotherapy. He is not bleeding. Continue to monitor for signs of bleeding. We will continue to monitor. 6. DVT prophylaxis: He is on Lovenox. When able, get him out of the bed. 7. Nutrition: Encourage him to have 3-4 protein drinks per day. PLAN: We have ordered the patient a dose of Neupogen to be given today and we will repeat a CBC tomorrow morning. We will continue dosing until his ANC is greater than 1.0. We will continue to monitor his hemoglobin and hematocrit. The patient's altered mental status appears to have improved with fluid and antibiotic. Continue to treat his urinary tract infection per medical management. We will continue to monitor. Dictated by JAKY Fine for Jacinto Mackey MD Patient seen and examined. As above. Patient has a prior history of low-grade non-Hodgkins lymphoma for over a decade that has been treated twice. Recently he was diagnosed to have diffuse large B-cell lymphoma of the bladder. He received chemotherapy with R CHOP. He was admitted with change in mental status, neutropenic fever and gram-negative rods in the urine. He is on appropriate antibiotics. ID input appreciated. Continue Neupogen until ANC greater than 1.0. Continue supportive care. Jacinto Mackey M.D. cc: Jacinto Mackey MD [facility]ATR[facility] CENTERLeslie
--- NOTE | 2019-10-13 21:12 | CONSULTATION ---
DATE OF CONSULTATION: 10/13/2019 ATTENDING AND REFERRING PHYSICIAN: Hospitalist. CHIEF COMPLAINT: Fever, increased confusion. HISTORY OF PRESENT ILLNESS: This 83-year-old male developed urinary retention. He underwent transurethral resection of the prostate and placement of a suprapubic tube. Pathology revealed B- cell lymphoma in all the tissue. He is currently undergoing chemotherapy. He had a treatment last week and over the last several days has been having increasing fevers and more confused. The patient's suprapubic tube was changed by home health last week. The patient's states it is draining well. PAST MEDICAL HISTORY: Gout, memory problems, gastroesophageal reflux disease, elevated cholesterol, hypertension, history of pulmonary embolus, history of non-Hodgkin lymphoma. CURRENT MEDICATIONS: Documented on the chart. PAST SURGICAL HISTORY: Hernia repair, transurethral its of the prostate with placement of a suprapubic tube, medical port placement. SOCIAL HISTORY: No tobacco or alcohol use. He is currently undergoing chemo for B-cell lymphoma. ALLERGIES: He is allergic to linezolid, piperacillin, tazobactam. He states he does not feel well after a cycle of chemo but starts feeling better as time goes by. REVIEW OF SYSTEMS: He denies any chest pains or bowel problems. He states he does have some occasional shortness of breath. PHYSICAL EXAMINATION: General: A normally developed, mildly obese, age apparent, white male, oriented and cooperative. HEENT: Normal for age. Lungs: Clear. Cardiovascular: Regular rate and rhythm. No murmurs noted. Abdomen: Mildly obese, soft, nontender. No hepatosplenomegaly or masses. Normal bowel sounds. Suprapubic tube in place draining clear urine. The suprapubic tube site appears normal. : Uncircumcised male. Both testes are down. Mild bilateral hydroceles. No inguinal hernias. Rectal: Deferred. Extremities: No clubbing, cyanosis, or edema. Neurologic: No focal deficits. LABORATORY EVALUATION: He has a white count of 1.1, hemoglobin 7.5, hematocrit of 23.8 and platelets are 82,000. Serum electrolytes are normal. BUN 17, creatinine 1.1. Serum glucose 143. Cultures pending. IMPRESSION: Patient currently undergoing chemotherapy for lymphoma admitted with neutropenic fever with an indwelling suprapubic tube. PLAN: Change suprapubic tube. The new 16 fr suprapubic tube was obtained from a Peryr insertion kit. The old suprapubic tube was removed without difficulty. The new tube was placed. 10 mL of sterile water were placed in the Perry balloon. The Perry was placed to gravity drain. The efflux was clear. He tolerated the procedure well. cc: Bro Gonzales MD MTDD
[2019-10-13] MEDS: LOVENOX SUBQ SCH (22:35)
[2019-10-13] MEDS ORDERED: VANCOMYCIN 1,300 MG in NS 250 ML IV SCH (23:00)
[2019-10-14] MEDS: MERREM 2 GM in NS 100 ML IV SCH ×3 (01:10→17:45)
[2019-10-14 06:53] LABS: BASO# 0.11 X1000 (0.0-0.2); BASO% 4.3 % (0.0-0.8); EOS# 0.07 X1000 (0.0-0.7); EOS% 2.7 % (0.0-10.0); HEMATOCRIT 25.6 % (42.0-52.0); HEMOGLOBIN 8.2 g/dL (14.0-18.0); IMM GRAN# 0.04 X1000 (0.0-0.04); IMM GRAN% 1.6 % (0.0-0.5); LYMPH# 0.45 X1000 (1.2-3.4); LYMPH% 17.6 % (20.5-51.1); MCH 34.6 PG (27-31); MONO# 0.57 X1000 (0.11-0.59); MONO% 22.3 % (1.7-9.3); MPV 10.9 FL (7.4-10.4); NEUT# 1.32 X1000 (1.4-6.5); NEUT% 51.5 % (42.2-75.2); PLT 70 X1000 (130-400); RBC 2.37 XMIL (4.7-6.1); RDW 16.1 % (11.5-14.5); WBC 2.56 X1000 (4.8-10.8)
[2019-10-14 07:12] LABS: AGAP 15; ALB/GLOB RATIO 1.1; ALBUMIN 2.9 g/dL (3.5-5.0); ALKALINE PHOSPHATASE 116 U/L (32-122); BUN 14 mg/dL (8-22); CALCIUM 8.7 mg/dL (8.8-10.2); CHLORIDE 96 mmol/L (98-107); COSMO 267; CREATININE 1.1 mg/dL (0.7-1.2); ESTIMATED GFR > 60; GLUCOSE 141 mg/dL (70-104); GOT 23 U/L (10-34); GPT 47 U/L (10-44); POTASSIUM 3.9 mmol/L (3.5-5.1); SODIUM 132 mmol/L (136-145); TCO2 21 mmol/L (25-35); TOTAL BILIRUBIN 0.88 mg/dL (0.20-1.00); TOTAL PROTEIN 5.5 g/dL (6.3-8.3)
--- NOTE | 2019-10-14 08:20 | INFECTIOUS DISEASE PROGRESS NO ---
DATE: 10/14/2019 PRESENT ILLNESS: The patient came in with neutropenic fever. He has a gram-negative lurdes urinary tract infection, and he appeared to have an infected suprapubic catheter site also. The patient also is neutropenic. MEDICATIONS: The patient is on a combination of vancomycin and meropenem. PHYSICAL EXAMINATION: Vital Signs: Temperature is 98.2 degrees, pulse 76, respirations 22, blood pressure is 134/72. General: This is a somewhat ill-appearing elderly male. He is in no acute distress. Head/Eyes/Ears/Nose/Throat: He can hear my spoken words and see near objects. He does not have any white patches in his mouth. Neck: No pain with movement. Lungs: Clear to auscultation. Cardiovascular: Regular heart rate. Thorax: The patient has a Port-A-Cath present on the left side. The site is not erythematous or tender. Abdomen: Soft and nontender. The patient has a suprapubic tube in site. There is less erythema at the suprapubic tube site. Neurologic: The patient is alert. He can move his extremities. There is no tremor. LABORATORY AND X-RAY: Urine is growing a gram-negative lurdes. Blood cultures are pending. The culture I took from around the G-tube is also pending. The patient's ALT is 47. His CBC shows a white count of 2560 with an absolute neutrophil count of 1320. Creatinine is 1.1. GFR is greater than 60. ASSESSMENT AND PLAN: The patient, because his absolute neutrophil count is above 1000, does not have to stay in isolation and I have discontinued it. Also, the patient had pulled out all of his IVs, and so I called Dr. Mackey and he okayed us using the patient's Port-A-Cath. I am going to continue meropenem pending the culture results from the urine and blood and G-tube site, but I have discontinued vancomycin for now. COMORBIDITIES: The patient is elderly. He has a lymphoma. He also has dementia, and he is obese. cc: Frandy Qureshi MD
[2019-10-14] MEDS: PEPCID PO SCH ×2 (09:49→22:30)
[2019-10-14] MEDS: FOLIC ACID PO SCH (09:49)
[2019-10-14] MEDS: ARICEPT PO SCH (09:49)
[2019-10-14] MEDS: REMERON PO SCH (09:49)
[2019-10-14] MEDS: ZYLOPRIM PO SCH (09:50)
[2019-10-14] MEDS: CULTURELLE PO SCH ×2 (09:50→22:30)
[2019-10-14] MEDS: COLACE PO SCH (09:50)
--- NOTE | 2019-10-14 10:09 | PROGRESS NOTE ---
DATE: 10/14/2019 SUBJECTIVE: Mr. Sow was admitted on 10/12/2010, a patient of Dr. Jacinto Mackey. He came in with fever, confusion on 10/12/2019. An 83-year-old with large B-cell lymphoma who has received chemotherapy a week ago. He has a history of benign prostatic hypertrophy status post TURP and suprapubic cystostomy. Has a suprapubic catheter. He has a history of hypertension and gouty arthritis, so he is admitted with fever, T-max was 101 degrees and he just received chemotherapy, so neutropenic fever in the face of large B-cell lymphoma, hypertension, pancytopenia secondary to chemotherapy, benign prostatic hypertrophy, suprapubic catheter, hypertension, hyperlipidemia. He reports he feels better, feels a little stronger. He remains afebrile. OBJECTIVE: Vital signs: Temperature 97.6 degrees, pulse 97, respirations 16, blood pressure 120/59. HEENT: Pupils are equal and round. Lungs: Clear in all lung alvarado. Cardiovascular: Regular rhythm and rate without murmur or S3. Abdomen: Soft. Skin: Warm and dry. Urine output: 4000 mL. ASSESSMENT AND PLAN: 1. Neutropenic fever, gram-negative lurdes urinary tract infection, appeared to have an infected suprapubic catheter site as well. The patient's counts are coming up. He is on a combination of vancomycin, meropenem, and seems to be improving and doing well. 2. Changed suprapubic. Urology, Dr. Vamsi Gonzales, changed suprapubic tube. New 16-Azeri suprapubic tube was obtained from a Perry insertion kit and old suprapubic tube was removed without any difficulty. 3. Diffuse large cell B-cell lymphoma, currently undergoing treatment with Rituxan, Cytoxan, Adriamycin and vincristine 2. 4. Microcytic anemia. Patient's hemoglobin and hematocrit 1 week ago in clinic were 10 and 30. His iron profile was adequate, so continue to monitor. 5. Possible pneumonia. REVIEW OF HIS LABS: This morning, white count 2560, hematocrit is 25, hemoglobin 8.2, platelet count 70,000. Sodium 132, potassium 3.9, chloride 96, BUN is 14, creatinine 1.1. AST 23, ALT 47, alkaline phosphatase is 116. REVIEW OF HIS ORDERS: He is on Colace 100 mg p.o. daily, Aricept 5 mg a day, Lovenox 40 mg subcutaneous q.24 hours, Pepcid 20 mg b.i.d., folic acid 1 mg daily, hydrocodone 1 q.6 hours p.r.n., lactobacillus rhamnosus 1 b.i.d., meropenem 2 g IV q.8 hours, Remeron 15 mg p.o. daily, Granix 480 mcg subcutaneous was given a dose yesterday, and vancomycin 2100 mg IV loading dose 1 time I think was given. The micro shows gram-negative lurdes, greater than 100,000 colonies. cc: Jose Royal MD
[2019-10-14] MEDS: NS 1,000 ML IV SCH (11:04)
[2019-10-14] MEDS ORDERED: NS 1,000 ML ONE (11:21)
[2019-10-14] MEDS: LOVENOX SUBQ SCH (22:30)
[2019-10-15 07:35] VITALS: BP 102/43
[2019-10-15] MEDS: FOLIC ACID PO SCH (09:22)
[2019-10-15] MEDS: PEPCID PO SCH (09:22)
[2019-10-15] MEDS: ZYLOPRIM PO SCH (09:22)
[2019-10-15] MEDS: COLACE PO SCH (09:22)
[2019-10-15] MEDS: CULTURELLE PO SCH (09:22)
[2019-10-15] MEDS: REMERON PO SCH (09:23)
[2019-10-15] MEDS: ARICEPT PO SCH (09:23)
--- NOTE | 2019-10-15 09:38 | DISCHARGE SUMMARY ---
ADMISSION DATE: 10/12/2019 DISCHARGE DATE: Patient of Dr. Stewart. He came in with fever and confusion, which was over the last 24 hours before admission, 83-year-old with large B-cell lymphoma who has received chemotherapy a week ago, history of benign prostatic hypertrophy status post TURP, suprapubic cystostomy and suprapubic tube. He has history of hypertension. I believe he has a history of gout. The patient notes that when he had his TURP the pathology was basically B-cell lymphoma, but presented with neutropenic fever and felt he had a urinary tract infection, may be a coexisting pneumonia in the face of large B-cell lymphoma, recent chemotherapy, history of hypertension, pancytopenia secondary to chemotherapy, benign prostatic hypertrophy, hypertension, hyperlipidemia. He was started on Maxipime 2 g IV q.12, added vancomycin and his urine grew out Escherichia coli which was resistant to Levaquin, sensitive to nitrofurantoin and it was positive for extended spectrum beta lactamase producing organism. His blood counts came up and his hematocrit remained stable at 25, hemoglobin 8.2, platelet count was 70,000. He would like to go home today and I will see if we need to set him up probably for ertapenem 1 g daily, but I wanted to discuss with Dr. Qureshi to see if we can get things set up for him to leave with the help of home health. cc: Jose Royal MD
[2019-10-15] MEDS: MERREM 2 GM in NS 100 ML IV SCH (09:42)
[2019-10-15 10:15] LABS: BASO# 0.09 X1000 (0.0-0.2); BASO% 1.9 % (0.0-0.8); EOS% 2.1 % (0.0-10.0); HEMATOCRIT 28.5 % (42.0-52.0); HEMOGLOBIN 8.9 g/dL (14.0-18.0); IMM GRAN# 0.57 X1000 (0.0-0.04); IMM GRAN% 11.8 % (0.0-0.5); LYMPH# 0.69 X1000 (1.2-3.4); LYMPH% 14.3 % (20.5-51.1); MCHC 31.2 g/dL (33-37); MCV 105.6 FL (81-99); MONO# 0.35 X1000 (0.11-0.59); MONO% 7.3 % (1.7-9.3); MPV 10.8 FL (7.4-10.4); NEUT# 3.02 X1000 (1.4-6.5); NEUT% 62.6 % (42.2-75.2); PLT 76 X1000 (130-400); RDW 16.2 % (11.5-14.5); WBC 4.82 X1000 (4.8-10.8)
[2019-10-15 10:32] LABS: ALB/GLOB RATIO 1.4; ALBUMIN 3.6 g/dL (3.5-5.0); CALCIUM 9.1 mg/dL (8.8-10.2); CREATININE 1.3 mg/dL (0.7-1.2); POTASSIUM 3.9 mmol/L (3.5-5.1); TOTAL BILIRUBIN 0.54 mg/dL (0.20-1.00); TOTAL PROTEIN 6.1 g/dL (6.3-8.3)
[2019-10-15 10:33] LABS: BANDS 4 % (0-1); EOS 4 % (1-10); LYMPHS 8 % (21-51); MONO 6 % (1-9); SEGS 74 % (42-75)
--- NOTE | 2019-10-15 12:54 | HEMO/ONC PROGRESS NOTE ---
DATE: 10/15/2019 SUBJECTIVE: Mr. Sow is up and dressed this morning. He is ready to go home. He states he is feeling a lot better. He has no complaints today. His mentation is back to baseline. He denies any complaints. His family is comfortable with him going home today. OBJECTIVE: Vital Signs: Temperature 98.8 degrees, pulse rate 70, respiratory rate 18, blood pressure 102/43, O2 saturation 95% on room air. He is in 0/10 pain. PHYSICAL EXAM: General: He is in no acute distress. HEENT: Sclerae is anicteric. Oral mucosa is normal. Cardiovascular: Normal S1, S2. Heart rate and rhythm regular. Respiratory: Lung sounds are clear. Normal respiratory effort. Musculoskeletal: Patient is walking around steady without the assistance of a walking aid. Neurological: Awake, alert and oriented x3. No focal motor deficits. LABORATORY: WBC 4.82, hemoglobin 8.9, hematocrit 28.5, platelet count 76. ANC 3.02. Creatinine 1.3. ASSESSMENT AND PLAN: 1. Neutropenic fever secondary to urinary tract infection. This has resolved. The patient is no longer neutropenic. He is going home on appropriate antibiotics. 2. Diffuse large B-cell lymphoma, currently undergoing treatment with R-CHOP. The patient will resume his treatment if he is feeling better next week in the office. We will follow up with him at his next appointment. 3. Microcytic anemia. We will continue to follow up in the office. He is not a candidate for Procrit at this time. We will continue to monitor. 4. Thrombocytopenia. This is most likely due to chemotherapy. His platelets drop on the weeks between and typically bounce back on the week of his therapy. We will continue to monitor in the office. Dictated by JAKY Fine for Jacinto Guerra MD Doing better. Wants to go home. Plans for antibiotics at home via IV per Dr. Royal/Dr. Qureshi. We will follow up outpatient from oncology standpoint. Jacinto guerra MD cc: Jacinto Guerra MD [facility]
== END 2019-10-15 13:44 | disposition home health service (06) | DRG 698 ==
LOC: ED 18:14 → 4N 21:58 → SUATTDRO 21:58
PROVIDERS: ATTEND Emergency Medicine

== ENCOUNTER 2019-11-12 07:23 | Day surgery (SDC) ==
[2019-11-10 11:41] LABS: HEMATOCRIT 31.7 % (42.0-52.0); HEMOGLOBIN 10.1 g/dL (14.0-18.0); MCHC 31.9 g/dL (33-37); MCV 106.7 FL (81-99); MPV 11.4 FL (7.4-10.4); RBC 2.97 XMIL (4.7-6.1); RDW 17.1 % (11.5-14.5); WBC 6.17 X1000 (4.8-10.8)
[2019-11-10 12:24] LABS: CALCIUM 9.6 mg/dL (8.8-10.2); CREATININE 1.5 mg/dL (0.7-1.2); POTASSIUM 4.6 mmol/L (3.5-5.1)
[~2019-11-12 07:23] MED LIST: DIPRIVAN 1% ONE; XYLOCAINE-MPF 2% ONE
[2019-11-12] MEDS ORDERED: LR 1,000 ML ONE (07:40)
[2019-11-12] MEDS ORDERED: KEFZOL 1 GM/D5W 2 GM/100 ML IVPB ONE (07:40)
[2019-11-12] MEDS ORDERED: NEOSPORIN G.U. IRRIGANT ONE (08:40)
[2019-11-12] MEDS ORDERED: FENTANYL ONE (08:57)
[2019-11-12] MEDS ORDERED: ZOFRAN ONE (09:12)
[2019-11-12] MEDS ORDERED: AK-FLUOR ONE (09:26)
[2019-11-12] MEDS ORDERED: B & O 15A SUPP ONE (10:41)
[2019-11-12] MEDS: DEMEROL ONE ×2 (11:28→11:40)
[2019-11-12] MEDS ORDERED: NS 1,000 ML ONE (11:52)
--- NOTE | 2019-11-12 12:48 | OPERATIVE NOTE ---
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 POSTOPERATIVE DIAGNOSIS: History of lymphoma of the prostate with neurogenic bladder and indwelling suprapubic tube. PROCEDURES PERFORMED: 1. Cystoscopic exam with bilateral retrograde ureteral pyelograms, cold cup bladder biopsies and prostatic urethra. 2. Transurethral resection of the prostate. 3. Change suprapubic tube. ANESTHESIA: General via laryngeal mask. FINDINGS: Cystoscopic exam: Urethra-greater than 26-Lao without stricture. Prostate-status post recent TURP with some nodules in the prostatic urethra. Bladder-normal right ureteral orifice. Left ureteral orifice not visualized due to nodules and bullous edema. After these were resected and the left UO was normal. Grade 3 trabeculations. No papillary lesions. Suprapubic tube in place at the dome. Right retrograde ureteral pyelogram normal without filling defect. Left retrograde ureteral pyelogram normal without filling defect. Rectal exam reveals a prostate of about 40 g, firm. INDICATION FOR PROCEDURE: This 83-year-old male had a history of an enlarged prostate and urinary retention. He underwent transurethral resection of the prostate and placement of a suprapubic tube. 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 He has been undergoing chemotherapy and this is a secondary TURP to see if he has responded to treatment. DESCRIPTION OF PROCEDURE: After informed consent was obtained from the patient and family and him receiving IV antibiotics, he was taken the main OR cystoscopy room, placed in the supine position. General anesthesia via laryngeal mask was achieved. He was then placed in the low lithotomy position and prepped and draped in the usual sterile fashion for cystoscopic exam. A 21-Lao sheath cystoscope was passed through the patient's urethra, prostate, and bladder with findings noted above. An 8-Lao cone-tipped catheter was replaced. The left ureteral orifice was searched for, but could not be found. The right ureteral orifice was easily visualized and cannulated with the 8-Lao cone-tipped catheter and contrast was injected. No filling defects were seen on the right side. The 8-Lao cone-tip catheter was removed. The cold cup biopsy forceps were placed, and some nodules from the prostatic urethra were taken with the cold cup forceps and sent to Pathology in 1 container. Some trigone nodules were likewise biopsied and sent to Pathology in 1 container. The cystoscope was removed. The 26-Lao continuous flow resectoscope sheath was placed. Hemostasis was achieved from the cold cup biopsy sites on the bladder. The prostatic urethra was then re-resected, starting at the bladder neck going down to the verumontanum at the 6 o'clock position, going counterclockwise to the 2 o'clock position. Resection was then started back at the 6 o'clock position from the level of the bladder neck, level of the verumontanum, proceeding in a clockwise direction to the 10 o'clock position. Tissue from the anterior prostatic urethra was removed between the 10 o'clock and 2 o'clock position from the level of bladder neck, level of the verumontanum. Hemostasis was achieved with electrocautery. The chips were removed from the bladder with the [employer] evacuators. After all the chips were removed. The bladder nodules at the trigone were resected and sent to Pathology in 1 container. After this was resected the left ureteral orifice was visualized. The resectoscope was removed. The 21-Lao sheath cystoscope was passed through the patient's urethra and into the bladder. An 8-Lao cone-tipped catheter was passed through the cystoscope, engaged left ureteral orifice. Contrast was injected. Again, no filling defects were seen. The 8-Lao cone- tipped catheter was removed. A 0.035 ZIPwire was passed through the cystoscope, engaged left ureteral orifice advanced up into the kidney. A 6-Lao, 22 cm double-J stent was passed over the ZIPwire and up into the kidney. The renal end was verified by fluoroscopic exam, bladder end directly visualized. The stent removal string was removed. The suprapubic tube was changed under direct vision without difficulty. The bladder was left distended. The cystoscope was removed. A 22-Lao, 3 way Perry catheter was passed through the patient's urethra, prostate, and bladder without difficulty. 30 mL sterile water placed in Perry's balloon. The efflux was clear. Continuous bladder irrigation of normal saline was started. He tolerated the procedure well. Estimated blood loss 25 mL. He was taken to the recovery room in good condition. cc: Bro Gonzales MD
[2019-11-12] MEDS ORDERED: B & O 15A SUPP PR PRN (13:00)
[2019-11-12] MEDS ORDERED: NORCO-7.5 PO PRN (13:00)
[2019-11-12] MEDS ORDERED: LABETALOL IV PRN (13:00)
[2019-11-12] MEDS ORDERED: TYLENOL PO PRN (13:00)
[2019-11-12] MEDS: NS 1,000 ML IV SCH (13:00)
[2019-11-12] MEDS ORDERED: DITROPAN PO PRN (13:00)
[2019-11-12] MEDS ORDERED: BENADRYL IV PRN (13:00)
[2019-11-12] MEDS ORDERED: PHENERGAN IV PRN (13:00)
[2019-11-12] MEDS ORDERED: PHENERGAN PO PRN ×2 (13:00→18:41)
[2019-11-12] MEDS ORDERED: SODIUM CHLORIDE 0.9% INJ PRN (13:00)
[2019-11-12] MEDS ORDERED: BENADRYL LIQUID PO PRN (13:00)
[2019-11-12] MEDS ORDERED: PHENERGAN PR PRN (13:00)
[2019-11-12] MEDS: KEFZOL 2 GM/D5W 2 GM/50 ML IVPB IV SCH (17:00)
[2019-11-12] MEDS ORDERED: PREDNISONE PO PRN (18:41)
[2019-11-12] MEDS ORDERED: ZOFRAN PO PRN (18:41)
[2019-11-12] MEDS ORDERED: ZYRTEC PO PRN (18:41)
[2019-11-12] MEDS: COLACE PO SCH (20:32)
[2019-11-12] MEDS: PEPCID PO SCH (20:32)
[2019-11-12] MEDS: SEPTRA DS PO SCH (20:32)
[2019-11-12] MEDS: CULTURELLE PO SCH (20:32)
[2019-11-12] MEDS ORDERED: PEPCID PO SCH (21:00)
[2019-11-13] MEDS: KEFZOL 2 GM/D5W 2 GM/50 ML IVPB IV SCH ×2 (01:21→08:23)
[2019-11-13] MEDS: NS 1,000 ML IV SCH (01:22)
[2019-11-13] MEDS ORDERED: PROTONIX PO SCH (07:00)
[2019-11-13 07:18] VITALS: BP 103/46
[2019-11-13 08:10] LABS: HEMATOCRIT 26.8 % (42.0-52.0); HEMOGLOBIN 8.1 g/dL (14.0-18.0); MCH 32.5 PG (27-31); MCHC 30.2 g/dL (33-37); MCV 107.6 FL (81-99); MPV 10.2 FL (7.4-10.4); RBC 2.49 XMIL (4.7-6.1); WBC 5.95 X1000 (4.8-10.8)
--- NOTE | 2019-11-13 08:22 | Diag Imaging Result Doc PS360 ---
EXAM: RETROGRADES 2 OR 3 FILMS 11/12/2019 HISTORY: BLADDER TUMOR, STONE. RETROGRADES, LT. STENT PLACEMENT TECHNIQUE: 59 images 46.4 mGy, one minute 22 seconds fluoroscopy time COMMENT: There is apparently a suprapubic tube. Bilateral retrograde pyelography was performed. There is narrowing of the right UPJ without evidence of significant caliectasis. No filling defects are demonstrated. There is no evidence of obstruction or ureteral filling defects on the left side. A ureteral stent was placed on the left. IMPRESSION: Left ureteral stent placement. Electronically signed by Tavo Esquivel 11/13/2019 8:20 AM
[2019-11-13] MEDS: PEPCID PO SCH (08:24)
[2019-11-13] MEDS: SEPTRA DS PO SCH (08:24)
[2019-11-13] MEDS: CULTURELLE PO SCH (08:24)
[2019-11-13] MEDS: COLACE PO SCH (08:24)
[2019-11-13 08:51] LABS: CALCIUM 8.5 mg/dL (8.8-10.2); CREATININE 1.6 mg/dL (0.7-1.2); POTASSIUM 4.6 mmol/L (3.5-5.1)
[2019-11-13] MEDS ORDERED: REMERON PO SCH (09:00)
[2019-11-13] MEDS ORDERED: PERIDEX MT SCH (09:00)
[2019-11-13] MEDS ORDERED: FOLIC ACID PO SCH (09:00)
[2019-11-13] MEDS ORDERED: VICON-C PO SCH (09:00)
[2019-11-13] MEDS ORDERED: NORVASC PO SCH (09:00)
[2019-11-13] MEDS ORDERED: ARICEPT PO SCH (09:00)
[2019-11-13] MEDS ORDERED: ZYLOPRIM PO SCH (09:00)
[2019-11-13] MEDS ORDERED: CENTRUM SILVER PO SCH (09:00)
== END 2019-11-13 09:55 | disposition home or self-care (01) ==
LOC: OR 07:23 → 4N 07:23 → OR 11-13 09:55
PROVIDERS: ATTEND Urology
PROC: UR.TURP (2019-11-12 08:50)

== ENCOUNTER 2019-12-11 14:27 | Inpatient (IN) ==
[2019-12-11] MEDS ORDERED: NS 1,000 ML IV ONE ×2 (15:11→20:55)
[2019-12-11] MEDS ORDERED: TORADOL IV ONE (15:16)
--- NOTE | 2019-12-11 15:27 | EKG Report ---
Test Performed on : 12/11/2019 2:52:40 PM Test Reason : fatigue Blood Pressure : / mmHG Vent. Rate : 088 BPM Atrial Rate : 088 BPM P-R Int : 204 ms QRS Dur : 094 ms QT Int : 346 ms P-R-T Axes : 055 -47 -09 degrees QTc Int : 418 ms Normal sinus rhythm. Left axis deviation Low voltage QRS Nonspecific ST and T wave abnormality Abnormal ECG When compared with ECG of 23-MAY-2019 14:26, Nonspecific T wave abnormality now evident in Anterior leads Unconfirmed Result
[2019-12-11] MEDS ORDERED: ETHYL CHLORIDE SPRAY TOP ONE (15:43)
--- NOTE | 2019-12-11 16:01 | Diag Imaging Result Doc PS360 ---
EXAM: CHEST-2 VIEWS INDICATION: cough, fever, fatigue TECHNIQUE: 2 views COMPARISON: 10/12/2019 FINDINGS: There is a stable left chest port. There is evidence of prior granulomatous disease, stable. There is vague linear opacity at the left lung base suggesting atelectasis and/or infiltrate. There is stable elevation of the right hemidiaphragm. There is no discrete pleural fluid collection or pneumothorax. Cardiac silhouette is borderline prominent but stable. Central vasculature is unremarkable. IMPRESSION: Left basilar atelectasis +/- mild infiltrate. Electronically signed by Saulo Shirley 12/11/2019 3:59 PM
[2019-12-11] MEDS ORDERED: LEVAQUIN 750 MG/D5W 750 MG/150 ML IVPB IV ONE (16:21)
[2019-12-11 17:03] LABS: HEMATOCRIT 46.4 % (42.0-52.0); HEMOGLOBIN 15.3 g/dL (14.0-18.0); LYMPH# 0.74 X1000 (1.2-3.4); LYMPH% 19.8 % (20.5-51.1); MCV 100.2 FL (81-99); MONO# 0.47 X1000 (0.11-0.59); MONO% 12.6 % (1.7-9.3); NEUT# 2.53 X1000 (1.4-6.5); NEUT% 67.6 % (42.2-75.2); PLT 54 X1000 (130-400); RBC 4.63 XMIL (4.7-6.1); RDW 15.1 % (11.5-14.5); WBC 3.74 X1000 (4.8-10.8)
[2019-12-11 17:21] LABS: ALB/GLOB RATIO 1.6; ALBUMIN 3.5 g/dL (3.5-5.0); CALCIUM 8.9 mg/dL (8.8-10.2); POTASSIUM 4.8 mmol/L (3.5-5.1); TOTAL BILIRUBIN 1.15 mg/dL (0.20-1.00); TOTAL PROTEIN 5.7 g/dL (6.3-8.3)
[2019-12-11 17:36] LABS: URINE SOURCE CATH
[2019-12-11 17:51] LABS: BILIRUBIN URINE NEGATIVE (NEGATIVE); BLOOD URINE MODERATE (NEGATIVE); COLOR ORANGE; GLUCOSE URINE NEGATIVE (NEGATIVE); KETONE URINE NEGATIVE (NEGATIVE); LEUKOCYTES URINE LARGE (NEGATIVE); NITRITE URINE NEGATIVE (NEGATIVE); PROTEIN URINE 200 mg/dL (NEGATIVE); SP GRAVITY URINE 1.018; TURBIDITY URINE TURBID (CLEAR); UROBILINOGEN URINE NORMAL (NORMAL)
[2019-12-11 18:01] LABS: UR EPITHELIAL CELLS <10 /HPF (<10); URINE BACTERIA 4+ /HPF; URINE WBC TNTC /HPF (<10)
[2019-12-11 18:26] LABS: URINE CASTS NONE SEEN; URINE CRYSTALS NONE SEEN; URINE YEAST NONE SEEN
--- NOTE | 2019-12-11 18:49 | Diag Imaging Result Doc PS360 ---
EXAM: CT ABDOMEN/PELVIS W/O CONTRAST INDICATION: abdominal pain, fever TECHNIQUE: This exam was performed using automated exposure control, adjustment of mA or kV according to patient size, and/or use of iterative reconstruction technique. COMPARISON: 11/14/2019 FINDINGS: There is stable bronchiectasis in stable overlying infiltrate at the right lung base. There is much milder infiltrate at the left lung base that is worse than the previous study. There is stable vague groundglass nodular opacities in the right lower lung zone as well. The liver, gallbladder, spleen, pancreas, and adrenal glands are unremarkable. 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 There is a stable left ureteral stent. There are a couple of nonobstructing intrarenal stones on the left that are unchanged. There is left perinephric and left periureteral stranding that is more prominent than the previous study. There is no new hydronephrosis, however. Pyelonephritis cannot completely be excluded. There is a suprapubic urinary bladder catheter. The urinary bladder is nondistended. The appendix is normal. There is uncomplicated diverticulosis coli. There is no evidence of bowel obstruction. There is no focal bowel wall thickening. The remainder of the GI tract is essentially unremarkable. 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 IMPRESSION: 1.Stable left ureteral stent and no hydronephrosis but increased left perinephric stranding and proximal periureteral stranding as compared to the previous study. Infection cannot be excluded. 2.Infiltrate at the right lower lung zone is stable but there is milder increased infiltrate at the left lung base. 3.Other incidental/nonacute findings detailed above. Electronically signed by Saulo Shirley 12/11/2019 6:46 PM
[2019-12-11] MEDS ORDERED: VANCOMYCIN IV PER PHARMACY MISC SCH (20:45)
[2019-12-11] MEDS ORDERED: ULTRAM PO PRN (20:52)
[2019-12-11] MEDS ORDERED: ZOFRAN PO PRN (20:52)
[2019-12-11] MEDS ORDERED: PREDNISONE PO PRN (20:52)
[2019-12-11] MEDS ORDERED: PHENERGAN PO PRN (20:52)
[2019-12-11] MEDS ORDERED: ZYRTEC PO PRN (20:52)
[2019-12-11] MEDS ORDERED: MAXIPIME 1 GM in NS 50 ML IV ONE (21:00)
[2019-12-11] MEDS ORDERED: TYLENOL PO PRN (21:27)
[2019-12-11] MEDS ORDERED: VANCOMYCIN 2,000 MG in NS 500 ML IV ONE (22:00)
[2019-12-11] MEDS: PROTONIX PO SCH (22:11)
[2019-12-11] MEDS ORDERED: DOXYCYCLINE 100 MG in NS 250 ML IV SCH (23:00)
[2019-12-11] MEDS: CULTURELLE PO SCH (23:10)
[2019-12-11] MEDS: PEPCID PO SCH (23:10)
[2019-12-11] MEDS: REMERON PO SCH (23:10)
[2019-12-11 23:57] LABS: INR 1.35
--- NOTE | 2019-12-12 07:14 | HISTORY AND PHYSICAL ---
CHIEF COMPLAINT: Weakness, difficulty ambulating. HISTORY OF PRESENT ILLNESS: This is an 84-year-old male who had a history of sepsis and C. diff in the past. He has been very fatigued, having difficulty walking. Has a chronic cough and nasal congestion. He had some right lower quadrant pain and decreased appetite for around 5 days. Son and daughter stated that he recently finished some Bactrim for a urinary tract infection. He has large B cell lymphoma and is under the treatment of Dr. Mackey. I believe his last chemo was around a month ago. Has home health. His suprapubic catheter was changed from what I understand yesterday. His laboratory data showed a leuko esterase positive urinary tract infection. His chest x-ray showed a right lower lung infiltrate that is stable but a milder infiltrate at the left lung base which is new. Also showed some left-sided stranding which could not rule out infection around the left urethral stent. Patient has been having fever and chills. He will be admitted for further evaluation and treatment. PAST MEDICAL HISTORY: See HPI. Hypertension, hyperlipidemia and gout. PREVIOUS SURGICAL HISTORY: Port-a-Cath placement, TURP with stent placement, lithotripsy in the past, suprapubic catheter placement. SOCIAL HISTORY: Marries. Lives with . No tobacco, alcohol or illicit drugs. FAMILY HISTORY: Notable for breast cancer, kidney cancer. No diabetes or heart disease in first degree relatives. ALLERGIES: Zyvox and Zosyn. MEDICATIONS: 1. Allopurinol 100 mg daily. 2. Bactrim DS one p.o. b.i.d. 3. Amlodipine 2.5 mg p.o. daily. 4. Zyrtec 10 mg p.o. p.r.n. 5. Aricept 5 mg p.o. daily. 6. Folic acid 1 gram p.o. daily. 7. Lactobacillus 460 mg capsule p.o. b.i.d. 8. Mirtazapine 15 mg p.o. daily. 9. Multivitamin 1 p.o. daily. 10.Zofran 4 mg p.o. q.4 hours. 11.Protonix 40 mg p.o. q.24 hours. 12.Prednisone 20 mg p.o. p.r.n. 13.Phenergan 25 mg p.o. q.6. 14.Ranitidine 150 mg p.o. b.i.d. 15.Tramadol 50 mg p.o. q.4. 16.Vitamin B complex 1 p.o. daily. 17.Warfarin 1 mg p.o. daily. REVIEW OF SYSTEMS: A 14 point review of systems conducted with the patient. Pertinent positives listed above in the HPI. All other systems reviewed and found to be negative. PHYSICAL EXAMINATION: VITAL SIGNS: Temperature 99.9 degrees, pulse 74, respirations 18, blood pressure 103/58, oxygen saturation 98% on room air. GENERAL: 84-year-old male lying in the ER stretcher. He is in no acute distress. He is alert and oriented x3. HEENT: Head is atraumatic, normocephalic. Pupils equal, round and reactive to light. Sclerae anicteric. Conjunctivae pale. Oral mucosa is dry. NECK: Supple. No JVD. No thyromegaly. Trachea is midline. No cervical lymphadenopathy. CARDIAC: S1, S2 appreciated. No murmurs, gallops, rubs. LUNGS: Crepitations noted throughout bilateral air alvarado. Symmetric rise and fall of respirations. ABDOMEN: Soft, nondistended. Nontender. Suprapubic cystotomy in place. No erythema. EXTREMITIES: No clubbing, cyanosis. 1+ pitting edema lower extremities. 2+ pedal pulses. NEUROLOGICAL: Alert and oriented x3. No focal motor deficits. Otherwise nonfocal examination. DIAGNOSTIC DATA: CT showed paraphrenic stranding. Could not rule out infection, right lower lung infiltrate, also a left lung base infiltrate. LABORATORY DATA: WBC 3.74, hemoglobin 15.3, hematocrit 46.4, platelet count 54,000. Sodium 129, potassium 4.8, chloride 92, carbon dioxide 25, BUN 29, creatinine 2, glucose 148. Urine leuko esterase positive, too numerous to count WBCs with 4+ bacteria. ASSESSMENT AND PLAN: 1. Urinary tract infection. 2. Bilateral lobe pneumonia. 3. Large B cell lymphoma. 4. History of hypertension, now normotensive. 5. BPH. 6. Hyperlipidemia. PLAN: Admit patient to the medical floor. We will cover with Maxipime and doxycycline. We will also add vancomycin for fear of MRSA. Blood cultures and urine cultures are pending. Influenza screen was negative. We will continue the patient's home medication. Further recommendations per patient's clinical course. Dictated by JAKY Moran for Brent Figueroa MD I have performed a face to face diagnostic evaluation. Labs/xrays- reviewed. Exam- Chest- rhonchi, CV- regular. A/P- UTI, Pneumonia- Admit, check blood cultures, IV ABX. Dr. Figueroa cc: JAKY Moran MD [facility]
[2019-12-12 08:35] LABS: CALCIUM 8.8 mg/dL (8.8-10.2); CREATININE 1.9 mg/dL (0.7-1.2); POTASSIUM 4.9 mmol/L (3.5-5.1)
[2019-12-12 08:57] LABS: BASO# 0.01 X1000 (0.0-0.2); BASO% 0.2 % (0.0-0.8); EOS# 0.01 X1000 (0.0-0.7); EOS% 0.2 % (0.0-10.0); HEMATOCRIT 27.9 % (42.0-52.0); HEMOGLOBIN 8.7 g/dL (14.0-18.0); LYMPH# 0.89 X1000 (1.2-3.4); LYMPH% 19.3 % (20.5-51.1); MCH 32.2 PG (27-31); MCHC 31.2 g/dL (33-37); MCV 103.3 FL (81-99); MONO# 0.33 X1000 (0.11-0.59); MONO% 7.2 % (1.7-9.3); MPV 10.2 FL (7.4-10.4); NEUT# 3.36 X1000 (1.4-6.5); NEUT% 73.1 % (42.2-75.2); PLT 80 X1000 (130-400); RDW 14.7 % (11.5-14.5)
[2019-12-12] MEDS: CULTURELLE PO SCH ×2 (09:00→23:03)
[2019-12-12] MEDS: PEPCID PO SCH ×2 (09:00→23:03)
[2019-12-12] MEDS: NORVASC PO SCH (09:00)
[2019-12-12] MEDS ORDERED: REMERON PO SCH (09:00)
[2019-12-12] MEDS: VICON-C PO SCH (09:00)
[2019-12-12] MEDS: FOLIC ACID PO SCH (09:01)
[2019-12-12] MEDS: CENTRUM SILVER PO SCH (09:01)
[2019-12-12] MEDS: COUMADIN PO SCH (09:01)
[2019-12-12] MEDS: ARICEPT PO SCH (09:01)
[2019-12-12] MEDS: MAXIPIME 1 GM in NS 50 ML IV SCH ×2 (09:02→23:03)
--- NOTE | 2019-12-12 10:18 | PROGRESS NOTE ---
DATE: 12/12/2019 SUBJECTIVE: Patient reports feeling fine. Having more cough, but no fever or chills. OBJECTIVE: Vital Signs: Temperature 99.2 degrees, heart rate 73, respiratory 19, blood pressure 113/56, O2 saturation 97% on room air. General examination: This is a 89-year-old male, lying in bed in no acute distress. Cardiovascular exam: S1, S2 heard. No murmurs, gallops, or rubs. Regular rate and rhythm. Respiratory exam: Coarse breath sounds noted in both pulmonary alvarado, mostly in both bases. Patient not using any accessory muscles or having work of breathing. Abdomen: Soft, nontender to palpation. Bowel sounds present. No organomegaly. Extremities: No clubbing, cyanosis, or edema. Peripheral pulses present in both legs. Neurological exam: The patient is alert and oriented x3. Moves 4 extremities. LABORATORY DATA: White cell count 4.6, hemoglobin 8.7, hematocrit 27.9, platelets are 80 with BMP remarkable for creatinine 1.9, sodium 134. ASSESSMENT: 1. Urinary tract infection. 2. Bilateral lower lobe pneumonia. 3. Large B-cell lymphoma. 4. Hypertension. 5. Hyperlipidemia. PLAN: At this point, the patient is doing fine. Not requiring any oxygen supplementation. We will continue with current antibiotics; in this case, vancomycin and cefepime. Will add breathing treatments as needed for shortness of breath. Both antibiotics will take care of urinary tract infection and pneumonia as well. For large B-cell lymphoma, patient is doing okay and he is going to have radiotherapy next Sunday, so hopefully he will be ready to receive that at that time. At this point, we will continue to monitor this patient closely. cc: Pavan Quintero MD
--- NOTE | 2019-12-12 14:00 | HEMO/ONC CONSULTATION ---
DATE: 12/12/2019 REASON FOR CONSULTATION: This is a known patient of ours for the treatment of diffuse large B- cell lymphoma. HISTORY OF PRESENT ILLNESS: Mr. Sow is an 84-year-old male who is currently under treatment for diffuse large B-cell lymphoma. He started having weakness with difficulty ambulating over the past couple of days. He had some mild confusion. His family brought him to the ER after they had difficulty getting him to the car. The patient has a suprapubic pubic catheter and has recurrent urinary tract infections. His suprapubic catheter was changed out on 12/10/2019. ER workup revealed UTI. His chest x-ray showed a right lower lung infiltrate as well as a left lung infiltrate. The patient has had fever and chills at home. He was admitted for further treatment and evaluation. We treat the patient in the clinic for diffuse large B-cell lymphoma. He was originally treated for non-Hodgkin's lymphoma with chemotherapy in 2013. He was thought to have a relapse and had a prostatectomy, which revealed diffuse large B-cell lymphoma. Patient started mini R-CHOP for 3 cycles in September 2019. His last dose was on 10/27/2019. This past week, he went for consultation with Dr. Maloney for radiation. They had the dry run yesterday and are set to begin radiation on 12/15/2019. The patient has also had ongoing thrombocytopenia with different hospitalizations. The patient has also had ongoing chemotherapy- induced anemia. He is not a candidate for Procrit. The patient has stage 2 renal insufficiency as well. He knows to push adequate amounts of fluids and be monitored routinely. The patient also takes Coumadin 1 mg for port DVT prophylaxis. PAST MEDICAL HISTORY: Hypertension, hyperlipidemia, non-Hodgkin's lymphoma and diffuse large B-cell lymphoma. PREVIOUS SURGICAL HISTORY: Port-A-Cath placement, TURP with stent placement, lithotripsy, suprapubic catheter placement. SOCIAL HISTORY: Patient denies tobacco, alcohol, or illicit drug use. ALLERGIES: Linezolid, Zosyn, and Zyvox. Zosyn and Zyvox I believe are listed as allergies due to thrombocytopenia. MEDICATIONS: Allopurinol. The patient was told to stop this at his last visit, he was taking it for tumor lysis prophylaxis Bactrim, amlodipine, Zyrtec, Aricept, folic acid, probiotics, mirtazapine, multivitamin, Zofran, Protonix, prednisone, Phenergan, ranitidine, tramadol, vitamin B complex, Coumadin. REVIEW OF SYSTEMS: Pertinent positives are noted in the HPI. All other review of systems negative. REVIEW OF ALLERGIES: Negative. VITAL SIGNS: Temperature 99.3 degrees, pulse rate 75, respiratory rate 19, blood pressure 114/51, O2 saturation 98% on room air. He is in 0/10 pain. PHYSICAL EXAMINATION: General: The patient appears comfortable. He is in no acute distress. He is in a pleasant mood. HEENT: Sclerae anicteric. Conjunctivae pale. Oral mucosa dry. PERRLA. Cardiovascular: Normal S1, S2. Normal rate and rhythm. Respiratory: Lung sounds are somewhat clear. Normal respiratory effort. Abdomen: Soft, nondistended, nontender. Suprapubic catheter noted. Extremities: +1 edema noted to lower extremities. Neurological: Alert and oriented x3. No focal motor deficits. LABORATORY: WBCs 4.60, hemoglobin 8.7, hematocrit 27.9, platelet count 88,000, ANC 3.364, BUN 29, creatinine 1.9, TSH 3. RADIOLOGY: 1. Abdomen CT and pelvis shows stable left ureteral stent and no hydronephrosis, but increased left perinephric stranding and proximal superior ureteral stranding as compared to previous study. Infection cannot be excluded. 2. Infiltrate at the right lower lung zone is stable, but there is milder increased infiltrate at the left lung base, distal aortic aneurysm measuring 3.2 cm in diameter. ASSESSMENT AND PLAN: 1. Urinary tract infection. Continue medical management with antibiotics as appropriate. Consult Dr. Gonzales. 2. Bilateral lobe pneumonia. Continue medical management. Continue antibiotics as appropriate. Dr. Lea is being consulted for further evaluation. 3. Large B-cell lymphoma. The patient's last treatment was on 10/27/2019 with mini R-CHOP. Excellent response to chemotherapy with negative PET and cystoscopy/biopsy. The patient is to start radiation with Dr. Maloney on Sunday. 4. Anemia. This is stable. We are aware. We will continue to monitor. 5. Thrombocytopenia. This could be chemotherapy related, it could also be bone marrow suppression due to pneumonia. The patient's level is improving since yesterday. We will continue to monitor closely. 6. Deep venous thrombosis prophylaxis. The patient remains on Coumadin 1 mg a day. May also consider sequential compression devices. 7. Nutrition. The patient should continue protein shakes while he is in the hospital to maintain weight and protein status. Dictated by JAKY Fine for Jacinto Mackey MD cc: Jacinto Mackey MD MTD
[2019-12-12] MEDS ORDERED: TESSALON PO PRN (16:27)
[2019-12-12] MEDS: REMERON PO SCH (23:03)
[2019-12-12] MEDS: PROTONIX PO SCH (23:03)
[2019-12-12] MEDS: ATIVAN IV PRN (23:16)
[2019-12-13 08:02] LABS: BASO# 0.01 X1000 (0.0-0.2); BASO% 0.3 % (0.0-0.8); EOS# 0.05 X1000 (0.0-0.7); EOS% 1.5 % (0.0-10.0); HEMATOCRIT 25.1 % (42.0-52.0); HEMOGLOBIN 7.8 g/dL (14.0-18.0); LYMPH# 0.77 X1000 (1.2-3.4); LYMPH% 23.3 % (20.5-51.1); MCHC 31.1 g/dL (33-37); MCV 102.9 FL (81-99); MONO# 0.45 X1000 (0.11-0.59); MONO% 13.6 % (1.7-9.3); MPV 10.3 FL (7.4-10.4); NEUT# 2.03 X1000 (1.4-6.5); NEUT% 61.3 % (42.2-75.2); PLT 88 X1000 (130-400); RBC 2.44 XMIL (4.7-6.1); RDW 14.6 % (11.5-14.5); WBC 3.31 X1000 (4.8-10.8)
[2019-12-13 08:09] LABS: ALBUMIN 2.8 g/dL (3.5-5.0); CALCIUM 9.1 mg/dL (8.8-10.2); CREATININE 1.9 mg/dL (0.7-1.2); PHOSPHORUS 3.4 mg/dL (2.7-4.5); POTASSIUM 4.6 mmol/L (3.5-5.1)
--- NOTE | 2019-12-13 09:21 | PROGRESS NOTE ---
DATE: 12/13/2019 SUBJECTIVE: Patient reports feeling okay. No fever or chills. No cough. OBJECTIVE: Vital Signs: Temperature 98.1 degrees, heart rate 66, respiratory rate 16, blood pressure 115/57. O2 saturation 99% on room air. General: This is a chronically ill appearing, 84- year-old male, lying in bed, in no acute distress. Cardiovascular exam: S1, S2 heard. No murmurs, gallops, or rubs. Regular rate and rhythm. Respiratory exam: Coarse breath sounds noted in both pulmonary alvarado better in comparing with admission. The patient is not using any accessory muscles or having work of breathing. Abdomen: Soft, nontender to palpation. Bowel sounds present. No organomegaly. Extremities: No clubbing, cyanosis, or edema. Peripheral pulses present in both legs. Neurological: The patient alert and oriented x3. Moves 4 extremities. LABORATORY DATA: Reviewed. ASSESSMENT AND PLAN: 1. Bilateral lower lobe pneumonia. 2. Urinary tract infection. 3. Large B-cell lymphoma. 4. Hypertension. 5. Hyperlipidemia. At this point, we will continue with current medications in this case, vancomycin and cefepime day #2 for both medications. The patient is feeling fine, having less cough. Not having any oxygen supplementation. So, we will continue with the same management that will also cover urinary tract infection. Considering his large B-cell lymphoma, I prefer to keep him over the weekend providing strong antibiotics and on Sunday that he has radiation therapy, I think we can let him go that morning. For hypertension, hyperlipidemia, we will continue home medications. cc: Pavan Quintero MD
[2019-12-13] MEDS: CENTRUM SILVER PO SCH (09:31)
[2019-12-13] MEDS: FOLIC ACID PO SCH (09:31)
[2019-12-13] MEDS: CULTURELLE PO SCH ×2 (09:31→20:47)
[2019-12-13] MEDS: COUMADIN PO SCH (09:31)
[2019-12-13] MEDS: PEPCID PO SCH ×2 (09:31→20:47)
[2019-12-13] MEDS: ARICEPT PO SCH (09:31)
[2019-12-13] MEDS: MAXIPIME 1 GM in NS 50 ML IV SCH ×2 (09:31→21:15)
[2019-12-13] MEDS: VICON-C PO SCH (09:31)
[2019-12-13] MEDS: NORVASC PO SCH (09:31)
[2019-12-13] MEDS: ATIVAN IV PRN ×2 (13:35→21:44)
--- NOTE | 2019-12-13 19:24 | PULMONOLOGY CONSULTATION ---
DATE: 12/13/2019 CONSULTING PHYSICIAN: Dr. Pavan Whitten. REASON FOR CONSULT: Recurrent pneumonia. HPI: This is an 84-year-old gentleman who presented to the emergency room complaining of weakness, difficulty walking with a chronic cough and nasal congestion. He has a history of large B-cell lymphoma is currently under the treatment of Dr. Mackey. Mr. Sow has a suprapubic catheter that was changed out November 12 with subjective fever and chills. Chest x-ray showed a right lower lobe infiltrate as well as the left lung base. Mr. 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 Mackey. He also has a history of a neurogenic bladder with a left ureteral stent in place which is chronic. PAST MEDICAL HISTORY: Hypertension, hyperlipidemia, non-Hodgkin lymphoma in 2013 and diffuse large B-cell lymphoma diagnosed 11/12/2019, neurogenic bladder with suprapubic catheter . PAST SURGICAL HISTORY: Port-A-Cath placement, TURP with stent placement, lithotripsy and suprapubic catheter placement. SOCIAL HISTORY: He denies alcohol, tobacco or illicit drug use. ALLERGIES: Zosyn and Zyvox which are listed as allergies due to thrombocytopenia. HOME MEDICATIONS: A list will be obtained by the nursing staff and once verified will review and restart as appropriate and verified. REVIEW OF SYSTEMS: Discussed with patient with pertinent positives stated in the HPI. He denied any syncope or dizziness, chest pain, palpitations, any nausea, vomiting, diarrhea, constipation, black or bloody vomitus or stools. PHYSICAL EXAMINATION: General: This is an 84-year-old gentleman who is sitting up in the chair in no distress. Vital Signs: Blood pressure is 100/61, heart rate of 81, respirations 16, temperature is 98.1 degrees oral with room air saturations 100%. HEENT: Head is normocephalic, atraumatic. Mucous membranes are moist. Neck: Supple with trachea midline. Cardiovascular: Regular rate and rhythm. S1 and S2 are appreciated. No murmurs or gallops. Pulmonary: Breath sounds with crepitations throughout. Chest rises and falls symmetric respiration. No increased work of breathing noted. Gastrointestinal: Abdomen soft, nontender, nondistended with bowel sounds in all 4 quadrants. : Suprapubic catheter is in place. Area is clear with no drainage. Neurologic: He is alert and oriented. LABS: WBC is 3.3 with hemoglobin 7.8, hematocrit 25.1 and platelets of 88,000. Sodium 136, potassium 4.6, BUN 25, creatinine 1.9 with a glucose of 116. Urinalysis reveals moderate blood with too numerous to count white blood cells and 4+ bacteria. Urine culture reveals gram-negative lurdes. Influenza A and B are both negative. Blood cultures x2 revealed no growth after 48 hours. DIAGNOSTICS: Chest x-ray revealed left basilar atelectasis plus or minus infiltrate. CT of the abdomen and pelvis revealed infiltrate with bilateral lower lobe infiltrates. IMPRESSION: This is an 84-year-old gentleman with 1. Bilateral lower lobe pneumonia. 2. Urinary tract infection. 3. Large B-cell lymphoma. 4. Hypertension. 5. Hyperlipidemia. 6. Neurogenic bladder with suprapubic catheter. PLAN: Will continue vancomycin and cefepime antibiotics as per primary team, add incentive spirometer q.4 hours with the patient up in the chair at meals and p.r.n.. I discussed with the patient and his daughter regarding his reflux. We did discuss reflux precautions. The patient should eat small meals with his supper being his smallest meal, that he should have no snacks after supper. Do not lie flat until 4 hours after eating, if he does have to rest or take a nap to sit in a recliner with head elevated at least 30 degrees , discussed elevation of his bed frame which they both voiced understanding. Thank you for allowing us to participate in this patient's care. Dictated by JAKY Prasad for Henry Lae MD cc: JAKY Prasad MD [facility]
[2019-12-13] MEDS: PROTONIX PO SCH (20:47)
[2019-12-13] MEDS: REMERON PO SCH (20:47)
[2019-12-13] MEDS ORDERED: VANCOMYCIN 1,650 MG in NS 250 ML IV SCH (22:00)
[2019-12-13] MEDS ORDERED: HALDOL IV ONE (22:56)
[2019-12-14 07:44] LABS: ALBUMIN 3.2 g/dL (3.5-5.0); CALCIUM 9.3 mg/dL (8.8-10.2); CREATININE 1.8 mg/dL (0.7-1.2); PHOSPHORUS 3.8 mg/dL (2.7-4.5); POTASSIUM 4.6 mmol/L (3.5-5.1)
[2019-12-14 08:18] LABS: BASO# 0.01 X1000 (0.0-0.2); BASO% 0.3 % (0.0-0.8); EOS# 0.15 X1000 (0.0-0.7); EOS% 4.9 % (0.0-10.0); HEMOGLOBIN 8.6 g/dL (14.0-18.0); LYMPH# 0.75 X1000 (1.2-3.4); LYMPH% 24.7 % (20.5-51.1); MCH 32.6 PG (27-31); MCHC 31.9 g/dL (33-37); MCV 102.3 FL (81-99); MONO# 0.33 X1000 (0.11-0.59); MONO% 10.9 % (1.7-9.3); MPV 10.1 FL (7.4-10.4); NEUT% 59.2 % (42.2-75.2); PLT 100 X1000 (130-400); RBC 2.64 XMIL (4.7-6.1); RDW 14.5 % (11.5-14.5); WBC 3.04 X1000 (4.8-10.8)
[2019-12-14] MEDS: MAXIPIME 1 GM in NS 50 ML IV SCH ×2 (09:01→21:30)
[2019-12-14] MEDS: PEPCID PO SCH ×2 (09:02→21:26)
[2019-12-14] MEDS: ARICEPT PO SCH (09:02)
[2019-12-14] MEDS: VICON-C PO SCH (09:02)
[2019-12-14] MEDS: CENTRUM SILVER PO SCH (09:02)
[2019-12-14] MEDS: FOLIC ACID PO SCH (09:02)
[2019-12-14] MEDS: CULTURELLE PO SCH ×2 (09:02→21:27)
[2019-12-14] MEDS: COUMADIN PO SCH (09:03)
[2019-12-14] MEDS: NORVASC PO SCH (09:04)
--- NOTE | 2019-12-14 10:06 | PROGRESS NOTE ---
DATE: 12/14/2019 SUBJECTIVE: The patient reports feeling okay. Denies any fever or chills. OBJECTIVE: Vital Signs: Temperature 97.8, heart rate 75, respiratory rate 19, blood pressure 96/50, O2 saturation 98% on room air. General: This is a chronically ill-looking, 84-year-old, male, lying in bed in no acute distress. Cardiovascular: S1 and S2 heard. No murmurs, gallops, or rubs. Regular rate and rhythm. Respiratory: Minimal coarse breath sounds noted in both pulmonary alvarado, better in comparing with admission. The patient is not using any accessory muscles or having work of breathing. Abdomen: Soft, nontender to palpation. Bowel sounds present. No organomegaly. Neurological: The patient is alert and oriented x3. Moves all 4 extremities. LABORATORY DATA: Reviewed. ASSESSMENT: 1. Bilateral lower lobe pneumonia. 2. Urinary tract infection. 3. Large B-cell lymphoma. 4. Hypertension. 5. Hyperlipidemia. PLAN: At this point, will continue with vancomycin and cefepime, day #3 for both medications. Clinically, this patient is doing fine with his progress. His white cell count is a little bit low at 3.04. He is not spiking any fever, and he is not requiring any oxygen supplementation, so in that regard, I am planning to discharge him tomorrow morning. Will continue with oral antibiotics at this point. The patient is going to have radiotherapy for this large B-cell lymphoma tomorrow afternoon. I think he should be ready to receive this therapy tomorrow. Will continue to monitor this patient for the rest of medical conditions. Will continue to provide home medications. cc: Pavan Quintero MD
--- NOTE | 2019-12-14 14:17 | PULMONOLOGY PROGRESS NOTE ---
DATE: 12/14/2019 SUBJECTIVE: Patient is sitting up in the chair talking to family members. He denies any shortness of breath, any fevers or chills. OBJECTIVE: Vital signs: Blood pressure is 104/48 with heart rate of 76, respirations are 18, temperature is 98.5 degrees oral with room air saturations 96 to 99 percent. HEENT: Head is normocephalic, atraumatic. Mucous membranes are moist . Neck: Is supple with trachea midline. Cardiovascular: Regular rate and rhythm, S1, S2 are appreciated. Pulmonary: Chest rises and falls symmetric respiration. Chest wall is nontender to palpation, he has no increased work of breathing noted. Gastrointestinal: Abdomen soft, nontender, nondistended with bowel sounds in all 4 quadrants. LABS: WBC is 3.0 with hemoglobin 8.6, hematocrit 27 and platelets of 100,000. Sodium 139, potassium 4.6, BUN 29, creatinine 1.8 with a glucose of 124. IMPRESSION: This is a an 84-year-old gentleman with 1. Bilateral lower lobe pneumonia. 2. Escherichia coli urinary tract infection. 3. Large B-cell lymphoma of the prostate. 4. Hypertension. 5. Hyperlipidemia. 6. Neurogenic bladder with suprapubic catheter. PLAN: Continue antibiotics per primary team, continue with incentive spirometer, have the patient up in the chair. I did readdress reflux precautions with the patient and family members. Dictated by JAKY Prasad for Henry Lea MD cc: JAKY Prasad MD
[2019-12-14] MEDS: PROTONIX PO SCH (21:27)
[2019-12-14] MEDS: REMERON PO SCH (21:27)
[2019-12-15 07:49] VITALS: BP 102/61
[2019-12-15] MEDS: VICON-C PO SCH (08:51)
[2019-12-15] MEDS: COUMADIN PO SCH (08:51)
[2019-12-15] MEDS: CULTURELLE PO SCH (08:51)
[2019-12-15] MEDS: PEPCID PO SCH (08:51)
[2019-12-15] MEDS: FOLIC ACID PO SCH (08:51)
[2019-12-15] MEDS: CENTRUM SILVER PO SCH (08:52)
[2019-12-15] MEDS: NORVASC PO SCH (08:52)
[2019-12-15] MEDS: MAXIPIME 1 GM in NS 50 ML IV SCH (08:53)
[2019-12-15 08:54] LABS: BASO# 0.02 X1000 (0.0-0.2); BASO% 0.6 % (0.0-0.8); EOS# 0.21 X1000 (0.0-0.7); EOS% 5.8 % (0.0-10.0); HEMATOCRIT 26.1 % (42.0-52.0); HEMOGLOBIN 8.3 g/dL (14.0-18.0); IMM GRAN# 0.02 X1000 (0.0-0.04); IMM GRAN% 0.6 % (0.0-0.5); LYMPH# 0.82 X1000 (1.2-3.4); LYMPH% 22.7 % (20.5-51.1); MCH 33.2 PG (27-31); MCHC 31.8 g/dL (33-37); MCV 104.4 FL (81-99); MONO# 0.42 X1000 (0.11-0.59); MONO% 11.6 % (1.7-9.3); MPV 10.1 FL (7.4-10.4); NEUT# 2.12 X1000 (1.4-6.5); NEUT% 58.7 % (42.2-75.2); PLT 105 X1000 (130-400); RDW 14.8 % (11.5-14.5); WBC 3.61 X1000 (4.8-10.8)
[2019-12-15] MEDS: ARICEPT PO SCH (08:54)
[2019-12-15 09:01] LABS: CALCIUM 9.2 mg/dL (8.8-10.2); CREATININE 1.5 mg/dL (0.7-1.2); PHOSPHORUS 3.6 mg/dL (2.7-4.5); POTASSIUM 4.4 mmol/L (3.5-5.1)
--- NOTE | 2019-12-15 13:35 | DISCHARGE SUMMARY ---
ADMISSION DATE: 12/11/2019 DISCHARGE DATE: 12/15/2019 DISCHARGE DISPOSITION: Home with family. DISCHARGE CONDITION: Hemodynamically stable. He denies any chest pain or shortness of breath. He continues to have dry cough. His son is at bedside. We discussed about continuing levofloxacin and I also discussed with him about discontinuing donepezil as long as he is on Levaquin to avoid interaction. I discussed with him that he should have a detailed discussion with the urologist about recurrent UTIs. DISCHARGE DIAGNOSES: 1. Bilateral lower lobe pneumonia. 2. Acute cystitis associated with suprapubic catheter. 3. History of large B-cell lymphoma. 4. E coli UTI OTHER DIAGNOSES: 1. History of benign prostatic hypertrophy. 2. History of hyperlipidemia. 3. History of large B-cell lymphoma. 4. History of chronic anticoagulation for left chest port to prevent venous thrombosis. 5. History of extended-spectrum beta-lactamases Escherichia coli urinary tract infection. 6. Normocytic anemia. 7. History of right lower lobe pulmonary embolism in November 2018. 8. Sepsis due to left acute pyelonephritis and bilateral lower lobe pneumonia. DISCHARGE MEDICATIONS: 1. Allopurinol 100 mg daily. 2. Donepezil 5 mg daily. 3. Lactobacillus 460 mg b.i.d. 4. Folic acid 1 tablet daily. 5. Multivitamin 1 tablet daily. 6. Amlodipine 2.5 mg daily. 7. Promethazine 25 mg every 6 hours as needed for nausea and vomiting. 8. Prednisone 20 mg as needed. 9. Mirtazapine 15 mg daily. 10. Vitamin B complex 1 tablet daily. 11. Warfarin 1 mg daily. 12. Ranitidine 150 mg b.i.d. 13. Cetirizine 10 mg orally as needed. 14. Zofran 4 mg every 4 hours as needed for nausea and vomiting. 15. Levofloxacin 500 mg daily 7 tablets have been prescribed. 16. Pantoprazole 40 mg every 24 hours. 17. Tramadol 50 mg every 4 hours as needed. VITALS: At time of discharge temperature 98.1 degrees, pulse 71, respiratory rate 20, blood pressure 102/61, he is saturating 99% room air. PHYSICAL EXAMINATION: General: Mr. Sow is not in acute distress. Oral cavity is moist. Lungs: Air entry bilaterally equal. No wheeze, rhonchi. He has mild crackles in infrascapular region. S1, S2 normal. No murmur or gallop. He has a port placed in the left side of the chest. Abdomen: Soft, nontender. He has suprapubic catheter draining clear urine. Extremity: No lower extremity edema. He was alert. He was able to answer most questions appropriately. SIGNIFICANT LABS AT TIME OF DISCHARGE: WBC 3.6, hemoglobin 8.3, platelet 105,000, BUN 26, creatinine 1.5. Microbiology: Urine culture was growing Escherichia coli which was sensitive to levofloxacin. IMAGING: During hospital admission, chest x-ray on presentation had left basilar atelectasis plus or minus infiltrate. Abdomen and pelvis CT performed for abdominal pain and fever had a stable left ureteral stent and no hydronephrosis, but increased left perinephric stranding and proximal periureteral stranding as compared to the previous study. Infection could not be excluded. Infiltrate on the right lung zone, which was stable, but it was milder, increased infiltrate at the left lung base. EKG: During hospital admission, electrocardiogram had normal sinus rhythm, left axis deviation, low voltage QRS, nonspecific ST wave abnormality. CONSULTATION DURING HOSPITAL ADMISSION: Pulmonology on November for recurrent pneumonia. HOSPITAL COURSE SUMMARY: Mr. Sow is an 84-year-old man who presented on 12/12/2019 with chief complaints of weakness, difficulty ambulating. He had a chronic cough and nasal congestion. He also had right lower quadrant abdominal pain and decreased appetite since about 5 days ago. He had recently finished treatment for urinary tract infection with Bactrim and he was seeing Dr. Mackey for B-cell lymphoma. With his chief complaint, he presented to the emergency room. In the emergency room, he was found to have temperature of 100.7 degrees, pulse of 102, respiratory rate of 20, blood pressure of 128/68, and oxygen saturation of 97%. His lab had leukopenia with WBC of 3.7. He also had acute kidney injury with elevation of creatinine to 2, so the hospitalist team was consulted for further management. Initial urinalysis has pyuria and chest x-ray with possible lower lobe infiltrate bilateral lower lungs. He was admitted for suspected sepsis. His urine culture grew Escherichia coli which was sensitive to Levaquin and CT scan of the abdomen and pelvis performed for abdominal discomfort had bilateral lower lung infiltrate and suspected left acute pyelonephritis. He was started on intravenous vancomycin and intravenous cefepime and so far he has received more than 48 hours of intravenous antibiotics. His antibiotics were changed to oral Levaquin and he was deemed appropriate for discharge. His sepsis seemed to have resolved at the time of discharge, as he had intact dorsalis pedis and posterior tibial pulses. Skin was pink with capillary refill time less than 2 seconds. I had a detailed discussion about his medical illnesses with his son at bedside. All of his questions were answered. 35 minutes were spent discharging this patient. The patient is supposed to go and receive radiotherapy later today. cc: Claudio Soto MD MTDD
== END 2019-12-15 10:18 | disposition home health service (06) | DRG 698 ==
LOC: ED 14:27 → 3N 22:01 → SUATTDRO 22:01
PROVIDERS: ATTEND Internal Medicine